=== PATIENT | male | born 1975 | race Two or more races ===

== ENCOUNTER 2016-03-02 21:58 | Emergency (ER) | payer MEDICAID ==
[2016-03-02 22:23] VITALS: BP 121/79; PULSE 88; RESP 18; TEMP 99.1; O2SAT 96
--- NOTE | 2016-03-02 23:14 | EDPHY ---
H & P Stated Complaint: RIGHT THIGH SKIN INFECTION, THINKS A BUG BITE HPI/ROS: HPI CHIEF COMPLAINT: Right thigh abscess HISTORY OF PRESENT ILLNESS: This patient very pleasant 40-year-old male denies any significant medical history or surgical history except for previously recurrent right leg abscess. He wants was treated with Keflex however developed a severe allergic reaction Keflex. He thinks he does okay with Bactrim. He presents emergency room with 2-3 days of a lesion to the right lateral thigh that appears to be a MRSA infection or abscess. He does tell me that he has been pushing on it and draining very minimal pus and some blood from it. Denies fever, denies pain up and down his leg only has localized pain to the abscess lesion. Of note he also states that there was some white stuff on the back of his throat and on the side of his cheek and he had a previous thrush infection he thinks he has recurrent thrush infection. Denies fever, denies history of HIV. He tells me this is his 3rd or 4th leg abscess. Of note I did ultrasound at bedside and there is no fluid collection underlying the skin cellulitis. 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 Exam Constitutional triage nursing summary reviewed, vital signs reviewed, awake/ alert. Eyes normal conjunctivae and sclera, EOMI, PERRLA. HENT posterior pharynx shows thrush in the back of the right tonsillar region and right cheek, otherwise no signs of abscess. normal inspection, atraumatic, moist mucus membranes, no epistaxis, neck supple/ no meningismus, no raccoon eyes. Respiratory clear to auscultation bilaterally, normal breath sounds, no respiratory distress, no wheezing. Cardiovascular rate normal, regular rhythm, no murmur, no edema, distal pulses normal. Gastrointestinal soft, non-tender, no rebound, no guarding, normal bowel sounds, no distension, no pulsatile mass. Genitourinary no CVA tenderness. Musculoskeletal no midline vertebral tenderness, full range of motion, no calf swelling, no tenderness of extremities, no meningismus, good pulses, neurovascularly intact. Skin RLE: Right lateral thigh there is a 2 cm x 3 cm abscess with a head on it. It is indurated there is no fluctuance. No palpable cord, no streaking cellulitis up or down the leg, no crepitus, no evidence of gas. Neurologic awake, alert and oriented x 3, AAOx3, moves all 4 extremities equally, motor intact, sensory intact, CN II-XII intact, normal cerebellar, normal vision, normal speech. Psychiatric normal mood/affect. Heme/Lymph/Immune no lymphadenopathy. Differential Diagnosis:Includes but is not limited to in a particular order, MRSA infection, cellulitis, thrush Medical Decision Making: This patient be started on Bactrim 1st dose given here in the emergency room the ultrasound did not reveal any significant fluid collection that needs to be drained. I do recommend that he continues to do warm compresses up to 5 times today warm soaks, also understands to return to the emergency room if this lesion gets bigger I do recommend he does not pressed on a squeeze on as he can see the infection deeper. He understands return emergency room if he has worsening swelling, redness, drainage, pain or fever or questions or concerns about his abscess. He does understand that it may get bigger and may need to be drained. Prescription given for Bactrim A prescription given for nystatin swish and swallow Source: Patient - Personal History Current Tetanus/Diphtheria Vaccine: Yes Tetanus Vaccine Date: 2011 - Medical/Surgical History Hx Asthma: No Hx Chronic Respiratory Disease: No Hx Diabetes: No Hx Cardiac Disease: No Hx Renal Disease: No Hx Cirrhosis: No Hx Alcoholism: No Hx HIV/AIDS: No Hx Splenectomy or Spleen Trauma: No Other PMH: DENIES - Social History Smoking Status: Current every day smoker Constitutional: Initial Vital Signs Temperature (C) 37.3 C 03/02/16 22:19 Heart Rate 88 03/02/16 22:19 Respiratory Rate 18 03/02/16 22:19 Blood Pressure 121/79 H 03/02/16 22:19 O2 Sat (%) 96 03/02/16 22:19 O2 Delivery Mode Room Air Allergies/Adverse Reactions: cephalexin monohydrate [From Keflex] Allergy (Verified 03/02/16 22:18) Home Medications: Medication Instructions Recorded Nystatin 100,000 unit PO BID #0 oral.susp 03/02/16 Sulfamethox/Tmp 800/160 mg 1 tab PO BID@1000,2200 #14 tab 03/02/16 [Bactrim Ds] Departure - Departure Disposition: Home, Routine, Self-Care Clinical Impression: Abscess, Candidiasis of mouth Condition: Good Instructions: Abscess (ED), Oral Candidiasis (ED) Additional Instructions: 1. Please take your antibiotic as prescribed. 2. Return to the emergency room if develops any worsening pain, swelling, redness, drainage or questions concerns about her abscess. 3. Please use warm compresses over her abscess. Please use warm compresses up to 5 times per day. If this lesion gets bigger more tender more redness please return to the urine may need to be drained. Referrals: NONE *PRIMARY CARE P,. [Primary Care Provider] - As per Instructions Prescriptions: Sulfamethox/Tmp 800/160 mg [Bactrim Ds] 1 tab PO BID@1000,2200 #14 tab Nystatin 100,000 unit PO BID #0 oral.susp
[2016-03-02] MEDS ORDERED: SULFAMETHOX/TMP 800/160 MG 1 TAB PO ONE (23:22)
[2016-03-02] MEDS ORDERED: SULFAMET/TMP DS PREPACK#2 BTL TAKEHOME ONE (23:22)
[2016-03-02] MEDS ORDERED: IBUPROFEN 600 MG TAB PO ONE (23:59)
[2016-03-03] MEDS ORDERED: IBUPROFEN 600 MG TAB PO ONE (00:04)
== END 2016-03-03 00:12 | disposition home or self-care (01) ==
DX: L02.415 Cutaneous abscess of right lower limb (principal); B37.0 Candidal stomatitis; F17.200 Nicotine dependence, unspecified, uncomplicated

== ENCOUNTER 2016-12-31 20:55 | Observation (INO) | payer MEDICAID, OTHER ==
--- NOTE | 2016-12-31 21:44 | EDPHY ---
H & P Stated Complaint: nausea vomiting hiv + HPI/ROS: HPI CHIEF COMPLAINT: Nausea vomiting, recently diagnosed with HIV untreated HISTORY OF PRESENT ILLNESS: This patient 41-year-old male, presents emergency room with nausea vomiting times 48 hours. Nonbloody. States he was recently diagnosed with HIV last week. He is not currently getting any treatment he is due to follow up with [facility] in early January. Denies having any significant medical history does not take any daily medications. Does state that sometimes he takes lorazepam for anxiety. Otherwise he states he is healthy. Patient presents emergency room stating that for 2 days he has had nausea vomiting. Denies diarrhea. Denies abdominal pain. Additionally reports over the past few months he has had a great weight loss. At 1 point he did have thrush that is treated. Additionally he reports intermittent chills over the past few months. Denies chest pain shortness of breath. Does endorse cough. Nonproductive. No hemoptysis. Past Medical History: HIV untreated Past Surgical History: No surgical history Social History: Denies daily use of drugs alcohol tobacco. Family History: Noncontributory ROS REVIEW OF SYSTEMS: A comprehensive 10 point review of systems is otherwise negative aside from elements mentioned in the history of present illness. Exam Constitutional thin appearing, however nontoxic, triage nursing summary reviewed, vital signs reviewed, awake/alert. Eyes normal conjunctivae and sclera, EOMI, PERRLA. HENT oropharynx is normal. No thrush. normal inspection, atraumatic, moist mucus membranes, no epistaxis, neck supple/ no meningismus, no raccoon eyes. Respiratory clear to auscultation bilaterally, normal breath sounds, no respiratory distress, no wheezing. Cardiovascular rate normal, regular rhythm, no murmur, no edema, distal pulses normal. Gastrointestinal soft, non-tender, no rebound, no guarding, normal bowel sounds, no distension, no pulsatile mass. Genitourinary no CVA tenderness. Musculoskeletal no midline vertebral tenderness, full range of motion, no calf swelling, no tenderness of extremities, no meningismus, good pulses, neurovascularly intact. Skin I do not see any petechiae, purpura or [place], pink, warm, & dry, no rash , skin atraumatic. Neurologic awake, alert and oriented x 3, AAOx3, moves all 4 extremities equally, motor intact, sensory intact, CN II-XII intact, normal cerebellar, normal vision, normal speech. Psychiatric normal mood/affect. Heme/Lymph/Immune no lymphadenopathy. Differential Diagnosis: Includes but is not limited to in a particular order dehydration, electrolyte disturbance, esophagitis, gastritis, peptic ulcer disease, HIV, AIDS, pneumonia, AIDS defining illness, infection, bacteremia, UTI Medical Decision Making: Plan for this patient unclear exactly what is causing his 48 hours of nausea vomiting in the setting of an immunocompromised patient will place IV, IV fluid bolus, Zofran for nausea, check blood work, UA, EKG, chest x-ray two view, blood cultures and re-evaluate. He does not appear ill. Vital signs are stable. Re-evaluation: EKG interpretation by me on record in [employer] system. Impression time of EKG 2205. This is sinus rhythm rate of 80. No acute ischemic changes. 2356: I did re-evaluate this patient this time resting comfortably no acute distress. He is not vomiting. He was able to p.o. challenge well. His abdomen is soft nontender. His blood work, chest x-ray been reviewed. His hemoglobin is noted to be 8.8. I did check a stool specimen there is no blood it is occult negative. He does have a follow-up appoint with [facility] to be started on HIV medication having HIV evaluation I do recommend he continues with this appointment in January. I will allow him to go home with Zofran and Zantac. He understands return emergency room if he develops any worsening symptoms questions or concerns includes vomiting, fever, not feeling well. He is agreeable this plan. Source: Patient - Personal History Current Tetanus/Diphtheria Vaccine: Yes Current Tetanus Diphtheria and Acellular Pertussis (TDAP): Yes Tetanus Vaccine Date: 2011 - Medical/Surgical History Hx Asthma: No Hx Chronic Respiratory Disease: No Hx Diabetes: No Hx Cardiac Disease: No Hx Renal Disease: No Hx Cirrhosis: No Hx Alcoholism: No Hx HIV/AIDS: No Hx Splenectomy or Spleen Trauma: No Other PMH: DENIES. hiv + - Social History Smoking Status: Former smoker Constitutional: Initial Vital Signs Temperature (C) 36.6 C 12/31/16 21:15 Heart Rate 97 12/31/16 21:15 Respiratory Rate 18 12/31/16 21:15 Blood Pressure 106/61 12/31/16 21:15 O2 Sat (%) 97 12/31/16 21:15 O2 Delivery Mode Room Air Allergies/Adverse Reactions: cephalexin monohydrate [From Keflex] Allergy (Verified 03/02/16 22:18) Sulfa (Sulfonamide Antibiotics) Allergy (Verified 12/31/16 21:15) Home Medications: Medication Instructions Recorded Ondansetron HCl [Zofran] 4 mg PO Q4-6PRN PRN #10 tablet 12/31/16 Ranitidine HCl [Zantac] 150 mg PO DAILY #30 tablet 12/31/16 Medical Decision Making - Diagnostics Imaging Results: Imaging Impressions Chest X-Ray 12/31/16 21:55 Impression: Normal chest. - Data Points Laboratory Results: Laboratory Results 12/31/16 21:36 12/31/16 21:36 12/31/16 12/31/16 12/31/16 23:10 22:10 21:36 WBC RBC Hgb Hct MCV MCH MCHC RDW Plt Count MPV Neut % (Auto) Lymph % (Auto) [place] % (Auto) Eos % (Auto) Baso % (Auto) Nucleat RBC Rel Count Absolute Neuts (auto) Absolute Lymphs (auto) Absolute Monos (auto) Absolute Eos (auto) Absolute Basos (auto) Absolute Nucleated RBC Immature Gran % Seg Neutrophils % Band Neutrophils % Lymphocytes % Monocytes % Eosinophils % Metamyelocytes % Immature Gran # Absolute Seg Neuts Absolute Band Neuts Absolute Lymphocytes Absolute Monocytes Absolute Eosinophils Absolute Metamyelocyte Platelet Estimate Hypochromasia Tear Drop Cells Elliptocytes PT INR APTT VBG Lactic Acid 1.0 mmol/L mmol/L (0.7-2.1) Sodium 137 mEq/L mEq/L (134-144) Potassium 3.7 mEq/L mEq/L (3.5-5.2) Chloride 100 mEq/L mEq/L (97-110) Carbon Dioxide 26 mEq/l mEq/l (22-31) Anion Gap 11 mEq/L mEq/L (8-16) BUN 11 mg/dL mg/dL (7-23) Creatinine 0.7 mg/dL mg/dL (0.7-1.3) Estimated GFR > 60 Glucose 95 mg/dL mg/dL (70-100) Calcium 8.5 mg/dL mg/dL (8.5-10.4) Total Bilirubin 0.3 mg/dL mg/dL (0.1-1.4) Conjugated Bilirubin 0.1 mg/dL mg/dL (0.0-0.5) Unconjugated Bilirubin 0.2 mg/dL mg/dL (0.0-1.1) AST 26 IU/L IU/L (17-59) ALT 23 IU/L IU/L (21-72) Alkaline Phosphatase 65 IU/L IU/L (38-126) Troponin I < 0.012 ng/mL ng/mL (0.000-0.034) Total Protein 6.9 g/dL g/dL (6.3-8.2) Albumin 3.3 g/dL L g/dL (3.5-5.0) Lipase 224 IU/L IU/L (23-300) Stool Occult Bld Scrn NEGATIVE (NEGATIVE) 12/31/16 12/31/16 21:36 21:36 WBC 4.01 10^3/uL 10^3/uL (3.80-9.50) RBC 3.09 10^6/uL L 10^6/uL (4.40-6.38) Hgb 8.8 g/dL L g/dL (13.7-17.5) Hct 26.1 % L % (40.0-51.0) MCV 84.5 fL fL (81.5-99.8) MCH 28.5 pg pg (27.9-34.1) MCHC 33.7 g/dL g/dL (32.4-36.7) RDW 14.5 % % (11.5-15.2) Plt Count 270 10^3/uL 10^3/uL (150-400) MPV 8.6 fL L fL (8.7-11.7) Neut % (Auto) Not Reported Lymph % (Auto) Not Reported [place] % (Auto) Not Reported Eos % (Auto) Not Reported Baso % (Auto) Not Reported Nucleat RBC Rel Count 0.0 % % (0.0-0.2) Absolute Neuts (auto) Not Reported Absolute Lymphs (auto) Not Reported Absolute Monos (auto) Not Reported Absolute Eos (auto) Not Reported Absolute Basos (auto) Not Reported Absolute Nucleated RBC 0.00 10^3/uL 10^3/uL (0-0.01) Immature Gran % Not Reported Seg Neutrophils % 79 % % Band Neutrophils % 14 % % Lymphocytes % 2 % % Monocytes % 2 % % Eosinophils % 2 % % Metamyelocytes % 1 % % Immature Gran # Not Reported Absolute Seg Neuts 3.17 10^/uL 10^/uL (1.70-6.50) Absolute Band Neuts 0.56 10^3/uL 10^3/uL (0.00-0.70) Absolute Lymphocytes 0.08 10^3/uL L 10^3/uL (1.00-3.00) Absolute Monocytes 0.08 10^3/uL L 10^3/uL (0.30-0.80) Absolute Eosinophils 0.08 10^3/uL 10^3/uL (0.03-0.40) Absolute Metamyelocyte 0.04 10^3/mL H 10^3/mL (0.00-0.00) Platelet Estimate ADEQUATE (ADEQ) Hypochromasia 1+ H Tear Drop Cells 1+ H Elliptocytes 1+ H PT 13.5 SEC SEC (12.0-15.0) INR 1.04 (0.83-1.16) APTT 34.9 SEC SEC (23.0-38.0) VBG Lactic Acid Sodium Potassium Chloride Carbon Dioxide Anion Gap BUN Creatinine Estimated GFR Glucose Calcium Total Bilirubin Conjugated Bilirubin Unconjugated Bilirubin AST ALT Alkaline Phosphatase Troponin I Total Protein Albumin Lipase Stool Occult Bld Scrn Medications Given: Discontinued Medications Sodium Chloride (Ns) 1,000 mls @ 0 mls/hr IV EDNOW ONE; Wide Open PRN Reason: Protocol Stop: 12/31/16 21:56 Last Admin: 12/31/16 22:20 Dose: 1,000 mls Ondansetron HCl (Zofran) 4 mg IVP EDNOW ONE Stop: 12/31/16 21:56 Last Admin: 12/31/16 22:20 Dose: 4 mg Departure - Departure Disposition: Home, Routine, Self-Care Clinical Impression: Anemia Qualifiers: Anemia type: unspecified type Qualified Code(s): D64.9 - Anemia, unspecified Vomiting Qualifiers: Vomiting type: unspecified Vomiting Intractability: non-intractable Nausea presence: with nausea Qualified Code(s): R11.2 - Nausea with vomiting, unspecified Condition: Good Instructions: Acute Nausea and Vomiting (ED) Additional Instructions: 1. Return emergency room if develops worsening symptoms questions or concerns includes abdominal pain, vomiting or high fever. 2. [facility]. 3. Zantac and Zofran as needed for nausea. Referrals: Patient,NotPresent [Primary Care Provider] - As per Instructions [facility] (ED,. [Edm Groups for Call Sched] - As per Instructions Prescriptions: Ondansetron HCl [Zofran] 4 mg PO Q4-6PRN PRN #10 tablet PRN Reason: Nausea/Vomiting, Use 1st Ranitidine HCl [Zantac] 150 mg PO DAILY #30 tablet
[2016-12-31] MEDS ORDERED: ONDANSETRON 4 MG/2 ML VIAL IVP ONE (21:55)
[2016-12-31] MEDS ORDERED: NS 1,000 ML IV ONE (21:55)
--- NOTE | 2016-12-31 22:08 | CPEKG ---
Heart Rate: 80 RR Interval: 750 P-R Interval: 160 QRSD Interval: 80 QT Interval: 388 QTC Interval: 448 P [place]: 51 QRS [place]: 71 T Wave [place]: 39 EKG Severity - NORMAL ECG - EKG Impression: SINUS RHYTHM Electronically Signed By: Pa Belle 01-Jan-2017 07:09:57
[2016-12-31 22:30] LABS: ADD DIFF? YES; ADD MORPH? NO; ADD SCAN? NO; ATYPICAL LYMPHOCYTE FLAG 0 (0-99); FRAGMENT RBC FLAG 0 (0-99); HEMATOCRIT 26.1 % (40.0-51.0); HEMOGLOBIN 8.8 g/dL (13.7-17.5); LEFT SHIFT FLG 70 (0-99); LIPEMIA HEMOLYSIS FLAG 80 (0-99); MEAN CELL HEMOGLOBIN 28.5 pg (27.9-34.1); MEAN CELL HEMOGLOBIN CONCENTR. 33.7 g/dL (32.4-36.7); MEAN CELL VOLUME 84.5 fL (81.5-99.8); MEAN PLATELET VOLUME 8.6 fL (8.7-11.7); PLATELET CLUMPS FLAG 10 (0-99); PLATELET COUNT 270 10^3/uL (150-400); RED BLOOD CELL COUNT 3.09 10^6/uL (4.40-6.38); RED CELL DISTRIBUTION WIDTH 14.5 % (11.5-15.2)
[2016-12-31 22:36] LABS: INR 1.04 (0.83-1.16); PROTIME(PATIENT) 13.5 SEC (12.0-15.0)
[2016-12-31 22:37] LABS: APTT 34.9 SEC (23.0-38.0)
[2016-12-31 22:40] LABS: ALANINE AMINOTRANSFERASE 23 IU/L (21-72); ALBUMIN 3.3 g/dL (3.5-5.0); ALKALINE PHOSPHATASE 65 IU/L (38-126); ANION GAP 11 mEq/L (8-16); ASPARTATE AMINOTRANSFERASE 26 IU/L (17-59); BILIRUBIN,TOTAL 0.3 mg/dL (0.1-1.4); BILIRUBIN-CONJUGATED 0.1 mg/dL (0.0-0.5); BILIRUBIN-UNCONJUGATED 0.2 mg/dL (0.0-1.1); CALCIUM 8.5 mg/dL (8.5-10.4); CARBON DIOXIDE 26 mEq/l (22-31); CHLORIDE 100 mEq/L (97-110); CREATININE 0.7 mg/dL (0.7-1.3); GLOMERULAR FILTRATION RATE > 60; GLUCOSE 95 mg/dL (70-100); POTASSIUM 3.7 mEq/L (3.5-5.2); SODIUM 137 mEq/L (134-144); TOTAL PROTEIN 6.9 g/dL (6.3-8.2)
[2016-12-31 22:50] LABS: TROPONIN I < 0.012 ng/mL (0.000-0.034)
[2016-12-31 23:02] LABS: HYPOCHROMIA 1+; PLATELET ESTIMATE ADEQUATE (ADEQ)
[2016-12-31 23:04] LABS: ELLIPTOCYTES 1+
[2016-12-31] MEDS ORDERED: ONDANSETRON 4MG PREPACK#2 BTL TAKEHOME ONE (23:04)
[2017-01-01 00:11] LABS: COLOR YELLOW; LEUKOCYTE ESTERASE,URINE NEGATIVE (NEGATIVE); NITRITE,URINE NEGATIVE (NEGATIVE)
[2017-01-01] MEDS ORDERED: ONDANSETRON 4 MG/2 ML VIAL IVP PRN (01:41)
[2017-01-01] MEDS ORDERED: diphenhydrAMINE 25 MG CAP PO PRN (01:41)
[2017-01-01] MEDS: LORazepam 0.5 MG TAB PO PRN ×2 (02:53→22:04)
[2017-01-01 05:57] LABS: ADD DIFF? YES; ADD MORPH? NO; ADD SCAN? NO; ATYPICAL LYMPHOCYTE FLAG 0 (0-99); FRAGMENT RBC FLAG 0 (0-99); HEMATOCRIT 23.9 % (40.0-51.0); HEMOGLOBIN 7.7 g/dL (13.7-17.5); LEFT SHIFT FLG 70 (0-99); LIPEMIA HEMOLYSIS FLAG 80 (0-99); MEAN CELL HEMOGLOBIN 27.8 pg (27.9-34.1); MEAN CELL HEMOGLOBIN CONCENTR. 32.2 g/dL (32.4-36.7); MEAN CELL VOLUME 86.3 fL (81.5-99.8); MEAN PLATELET VOLUME 8.5 fL (8.7-11.7); PLATELET CLUMPS FLAG 10 (0-99); PLATELET COUNT 229 10^3/uL (150-400); RED BLOOD CELL COUNT 2.77 10^6/uL (4.40-6.38); RED CELL DISTRIBUTION WIDTH 14.4 % (11.5-15.2)
[2017-01-01 06:19] LABS: ANION GAP 9 mEq/L (8-16); CARBON DIOXIDE 24 mEq/l (22-31); CHLORIDE 104 mEq/L (97-110); CREATININE 0.7 mg/dL (0.7-1.3); GLOMERULAR FILTRATION RATE > 60; GLUCOSE 99 mg/dL (70-100); MAGNESIUM 2.1 mg/dL (1.6-2.3); POTASSIUM 4.3 mEq/L (3.5-5.2); SODIUM 137 mEq/L (134-144)
[2017-01-01 06:28] LABS: ELLIPTOCYTES 1+; HYPOCHROMIA 1+; PLATELET ESTIMATE ADEQUATE (ADEQ); TOXIC GRANULATION PRESENT
--- NOTE | 2017-01-01 10:46 | GHP ---
[f rep st] HISTORY AND PHYSICAL DATE OF ADMISSION: 01/01/2017 HISTORY OF PRESENT ILLNESS: This is a very pleasant 41-year-old gentleman with past medical history significant for recently diagnosed HIV, who is otherwise healthy; who presents to the emergency depar tment today with a chief complaint of nausea and vomiting for the past 2 days. Patient states that delicia walker has not had any diarrhea or abdominal pain. He did have 1 episode which resolved a few days ago. He reports a roommate with similar symptoms. He does report some subjective fevers, chills with mitch rs, usually in the evenings, as well as sweats. Patient has had significantly decreasing appetite an d weight loss over the last several months. Patient also reports a chronic cough for the past 2 jennifer hs, which has slowly been improving, which he attributed to a smoker's cough. He has not had any pro duction of sputum with this cough, and patient did quit smoking only 1 month ago. REVIEW OF SYSTEMS: CONSTITUTIONAL: Patient with subjective fevers, chills, and rigors, as well as s weats. SKIN: Patient without any acute rashes or sores. Does report some chronic dry skin. ENT: Patient denies any sore throat or rhinorrhea. EYES: Patient does report right eye is blurry for the past several weeks. Otherwise, no other complaints. No ocular pain. CV: Patient has no chest miguelina n, palpitations. RESPIRATORY: Patient denies any shortness of breath. He does have cough as noted above. Patient also notes that he experiences posttussive emesis in the last several days with this nausea and vomiting. GI: See HPI. Patient denies any melena or hematochezia. He has not had any h ematemesis with his episodes of nausea and vomiting, and he denies any abdominal pain. : No dysur ia or hematuria. MUSCULOSKELETAL: Patient does report cramps in his legs occasionally, but no joint pain. NEURO: Patient is complaining of a headache, occasionally some numbness and tingling in his feet, knees, and hands, but otherwise none currently. PSYCH: Patient does report feeling a little b it anxious with his recent diagnosis, but has no formal diagnosis of this long-term, and he denies an y depression. ALLERGIES: Keflex and sulfa. MEDICATIONS: Ativan p.r.n. PAST MEDICAL HISTORY: Significant for recently diagnosed HIV and a previous history of thrush. PAST SURGICAL HISTORY: Significant for appendectomy. FAMILY HISTORY: Mother with hypertension. 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 He reports t hat he never has any unprotected sex and does not have any known exposures through sexual contact. H e is heterosexual. He denies any use of IV drugs. Patient quit smoking in early November of this year. He had a previous history of smoking half a pack per day intermittently over the last several years. He denies any illicit drug use. CODE STATUS: Patient's ex-, and he desires to be a full code. LABORATORY STUDIES: 1. On arrival, WBC 4.0, H and H 8.8 and 26.2, MCV of 84.5, platelet count is 270, no bands. 2. Sodium is 137, potassium 3.7, chloride 100, CO2 of 26, anion gap 11, BUN 11, creatinine 0.7, GFR greater than 40, glucose is 95, calcium 8.5, magnesium pending, total bili 0.3, ALT is 23, AST is 26, alk phos 65. Troponin is negative. Total protein 6.9. Albumin is 3.3. Lipase 224. 3. PT is 13.5, INR is 1.04, PTT is 34.5. Lactic acid is 1.0. 4. UA with specific gravity 1.014, pH of 6.0, and otherwise negative. 5. Stool occult blood is negative. 6. CD4 count pending. 7. Chest x-ray: Image report reviewed, negative for any acute findings, is clear. 8. EKG, reviewed myself, showing normal sinus rhythm in the 80s. There are no acute ST changes. QT c is 448. ASSESSMENT AND PLAN: A very pleasant 41-year-old gentleman with recent diagnosis of human immunodefi ciency virus, who presents with 2 days' history of nausea and vomiting. 1. Intractable nausea and vomiting. Symptoms finally have improved, status post several doses of Zo harry in the emergency department and intravenous fluids. Etiology is likely a viral gastroenteritis versus gastritis. Patient without any acute respiratory complaints at this time, and chest x-ray is clear. Supportive care with IV fluids and antiemetics at this time. 2. Bandemia. Patient without any leukocytosis, and CD4 count is pending with patient's history of r ecent human immunodeficiency virus, although this is not likely to be back for some time. Patient do es have a bandemia, possibly related to patient's acute illness with his nausea and vomiting. Will p viktor to monitor. Patient is currently afebrile. 3. Human immunodeficiency virus. Check CD4 count. Patient is scheduled to have followup with [facility] for management of his human immunodeficiency virus on December 19. 4. Cough. Patient reports his primary care provider completed skin testing and it was within normal for any evidence of allergies. 5. Anemia. Baseline hemoglobin and hematocrit are unknown at this time. This could represent anemi a of chronic disease with history of patient's human immunodeficiency virus. Denies any melena, wilda tochezia, or upper gastrointestinal bleeding. Will need to monitor closely. 6. Hypoalbuminemia. Likely secondary to patient's acute illness. 7. Fluid, electrolyte and nutrition. Patient will receive intravenous fluid hydration. We will try to advance his diet as tolerated given his intractable nausea and vomiting. Electrolytes will be re placed as needed, and diet will be advanced also as tolerated. 8. Prophylaxis. Sequential compression devices. Holding anticoagulation in the setting of anemia a s it is of uncertain etiology. Patient did have a guaiac that was negative. 9. Code status is full. DISPOSITION: Patient will be admitted to observation status on the medical floor. Blood cultures we re obtained initially when patient presented, will await preliminary findings. Low suspicion that th is patient has a bacteremia, and this does appear to be more viral in nature given multiple sick cont acts at home. /[id number]/MODL
--- NOTE | 2017-01-01 13:02 | HOSPPROG ---
Hospitalist Progress Note Assessment/Plan: DIAGNOSES: # Nausea vomiting, suspect gastroenteritis possibly viral, improving # 3 months of cough night sweats weight loss and headache, in the setting of HIV suspicion for TB or MAC; normal chest x-ray # HIV positive per patient's report though the test was not done in our system so we do not have the result to review # severe normocytic anemia, suspect a somehow related to his HIV disease or potentially to an opportunistic disease related to his HIV I reviewed the patient's situation in detail with Dr. denny the route. I have suspicion for possible AFB infection and Dr. Blair agrees that we should investigate that and start with CT scan of chest and AFB blood cultures. Will determine further assessments, isolation, and other issues once we see the CT scan today. For the moment I have asked the nurse to turn on the negative pressure mechanism in his room and put on isolation for possible AFB. We have also ordered T cell counts and does probably will not be back for a day or 2 but those will be helpful in terms of determining how to proceed. This also gives a chance to speed up his process of being assessed for HIV as his appointment at [facility] is off always for his initial assessment. In addition with his headache if he does have significantly low T cell counts would consider the utility of lumbar puncture to assess for chronic meningitis. It would also potentially helpful to check for CMV or other possible causes of his anemia at this point and I will order some testing for that purpose and will want to recheck his hemoglobin as it is dropping here and is quite low. PLANS: Dr. Quezada agrees to see patient for me CT scan of chest to look for infiltrates or adenopathy or other sign of disease AFB blood cultures Negative pressure isolation at for the time being Await T cell counts Continue IV fluids and p.r.n. antiemetic A total of 50 minutes of bedside care and care coordination is spent during my visit with the patient today in addition to the time spent earlier today by Dr. Glass. SUBJECTIVE: Patient is having less nausea now and has been able to eat some small amounts of food Still feels very tired No abdominal Pain Again he endorses the story of 2 and half to 3 months of very persistent cough, night sweats and chills, weight loss, mild headache OBJECTIVE Vitals reviewed: Stable without fever so far Exam: alert oriented skin warm dry color ok resps not labored lungs clear BSs heart regular abd soft nondistended nontender, bowel sounds present limbs warm, no edema iv site ok Objective: Vital Signs Temp Pulse Resp BP Pulse Ox 36.9 C 96 16 111/66 95 01/01/17 11:31 01/01/17 11:31 01/01/17 11:31 01/01/17 11:31 01/01/17 11:31 Laboratory Results 01/01/17 05:31 01/01/17 05:31 12/31/16 01/01/17 01/02/17 06:59 06:59 06:59 Intake Total 1650 Balance 1650 PT 13.5 SEC (12.0-15.0) 12/31/16 21:36 INR 1.04 (0.83-1.16) 12/31/16 21:36 - Time Spent With Patient Time Spent with Patient: greater than 35 minutes Time Spent with Patient: Greater than 35 minutes spent on this patients care, greater than 50% of time spent counseling, educating, and coordinating care regarding the above mentioned plan. ICD10 Worksheet Patient Problems: Problems Problem Status Onset Anemia Acute Vomiting Acute
[2017-01-01] MEDS ORDERED: IOPAMIDOL (ISOVUE-300) 100 ML BTL ONE (13:43)
--- NOTE | 2017-01-01 13:54 | ASMTCMCOM ---
CM Note CM Note Notes: Pt admitted for N/V probably viral per MD note. Tests have been ordered to look into cause of pt's 3-month cough. Pt's DC needs are unclear at this time. C/M to follow. Date Signed: 01/01/2017 01:53 PM Electronically Signed By:Ruth Pennington LCSW
[2017-01-01 14:36] LABS: % SATURATION 7 % (20-55); TOTAL IRON BINDING CAPACITY 248 ug/dL (260-490)
[2017-01-01] MEDS: ACETAMINOPHEN 325 MG TAB PO PRN (15:44)
--- NOTE | 2017-01-01 19:44 | GCON ---
[f rep st] CONSULTATION INFECTIOUS DISEASE CONSULTATION. DATE OF CONSULTATION: 01/01/[address] Mingo Kwon. REASON FOR CONSULTATION: Cough and new diagnosis of HIV. Evaluate for TB. CHIEF COMPLAINT: Nausea and vomiting. HISTORY OF PRESENTING ILLNESS: This is a 41-year-old male, who was recently diagnosed with HIV on December 16, 2016. He was offered an appointment at [place] last week, but was not able to make it. He came in yesterday with complaints of nausea and vomiting for the past 2 days, and not able to keep down any food. He denies any abdominal pain or diarrhea. He states that he is feeling much better. He was hydrated yesterday. He was feeling very hungry today and has been able to eat his meals today without difficulty. He has had some fevers, chills, and night sweats over the past several months and has lost about 30-40 pounds over the past year or so. He states that he has also had a chronic cough, without shortness of breath or sputum production. He denies any coughing up of blood. In discussion with Dr. Kwon earlier today, I recommended a CT of the chest to further evaluate, which showed no evidence of pneumonia, but extensive lymphadenopathy including the mediastinum and right hilar region, and extensive upper abdominal lymphadenopathy as well. His CD4 status is uncertain at this point, so that has been ordered. Infectious Disease is now consulted for further evaluation. REVIEW OF SYSTEMS: GENERAL: Mild headache over several months, without neck stiffness. HEENT: Eyes: He complains of right eye change in vision over the past of couple months as well. He denies sore throat, difficulty swallowing, ear pain, or ear drainage. He did have thrush a couple of weeks ago. He said he was treated with Diflucan, and it has resolved. CARDIOVASCULAR: Denies any chest pain or rapid heart beat. RESPIRATORY: As above. GI: As above. : Denies any dysuria, hematuria, penile discharge, or penile ulcers. BACK: No CVA tenderness or back pain. MUSCULOSKELETAL: Denies any joint pain or muscle aches. SKIN: He has had what he calls dry spots on his arms that his massage therapist gives him a cream for, and it resolves. ENDOCRINE: As above, with weight loss. PAST MEDICAL HISTORY: Significant for previous MRSA skin infections, right thigh abscess, namely in February of 2016, recurrent oral candidiasis and new diagnosis of HIV, status pending. PAST SURGICAL HISTORY: Significant for appendectomy. ALLERGIES: Allergies to Keflex and sulfa. SOCIAL HISTORY: He used to smoke. He quit 1 month ago. He denies alcohol intake. He denies injection drug usage, but has smoked cocaine in the past. He states he was incarcerated a year ago for a domestic violence situation. He states he shared clippers while in [facility], and he continues to share clippers currently. He states heterosexual is his sexual preference. He has a girlfriend right now who has had unprotected sex. She is currently being tested. 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 He has tattoos of his own that he has had since he was a young adult. He lives in a [facility] house right now. FAMILY HISTORY: He thinks his parents are healthy. PHYSICAL EXAMINATION: VITAL SIGNS: Temperature current 36.9, pulse 96, blood pressure 155/76, saturations 96% on room air, respiratory rate 16. GENERAL: He is sitting up in bed, in no acute respiratory distress. Awake, alert, and oriented x3. HEENT: Head is normocephalic, atraumatic. Pupils are equal, round, and react to light. There is no conjunctival injection and no petechiae. Oropharynx is clear. There is no posterior erythema or thrush. No oropharyngeal lesions noted. CARDIOVASCULAR: S1, S2. Regular rate and rhythm. No murmurs appreciated. RESPIRATORY: Clear to auscultate bilaterally. No rhonchi or rales appreciated. ABDOMEN: Positive bowel sounds in all 4 quadrants. Soft and nondistended. He has mild tenderness in the right upper quadrant with palpation. EXTREMITIES: No lower extremity edema. MUSCULOSKELETAL: No obvious joint effusions. SKIN: One hyperpigmented patch on the back and some areas which may be consistent with eczema on his upper extremities bilaterally. LABORATORY DATA: White blood cell count 5.7, hemoglobin 7.7, platelets 229, neutrophil count 66%, bands 25%. Toxic granulations and Dohle bodies noted. Sodium 137, potassium 4.3, chloride 74, bicarb 24, BUN 9, creatinine 0.7. Iron is 18. TIBC 248. Iron saturation 7. Ferritin 492. LFTs are within the normal range. Lipase 224. Albumin i3.3. Urinalysis is unremarkable. Stool occult blood negative. CD4 count and percentage pending. CMV IgA, IgG, and IgM pending. Blood cultures x2 sets are pending. Blood cultures for AFB are pending. Reviewed data from [facility] in detail: results as follows: 12/16/16:- HIV Ag/Ab positive, HIV 1 positive, Hepatitis A IgM negative, Hepatitis B surface Ag and Ab negative, Hepatitis C Ab negative, Chlamydia and Gonorrhea negative, RPR negative. IMAGING RESULTS: Have been reviewed by me and are as stated above. His chest x -ray showed no evidence of pneumonia. His chest CT showed mediastinal and right hilar adenopathy. No axillary or supraclavicular adenopathy. Extensive upper abdominal adenopathy, with possible heterogeneous splenomegaly. Arterially enhancing nodule in the upper liver. There was a small, noncalcified subpleural nodule in the posterior left upper lobe, along with a tiny left lateral costophrenic gutter noncalcified nodule. No pleural effusion. ASSESSMENT: 1. Human immunodeficiency virus, with possible acquired immune deficiency syndrome.-work up in progress 2. Extensive lymphadenopathy, with fevers, night sweats, and anemia concerning for possibly disseminated Mycobacterium avium complex. 3. Anemia. 4. History of recurrent oral candidiasis. PLAN: At this point in time, a basic HIV workup needs to be done, including CD4 count, HIV RNA, etc. I recommended earlier today to have blood cultures done for AFB to evaluate further for possible disseminated MAC. He may also need a CT of the abdomen and pelvis as well to further evaluate. We will order other basic HIV workup, as the patient is anxious to know and anxious to get started on treatment. He will likely need lymph node biopsy. There is no evidence of any pulmonary consolidation. We will discontinue airborne precautions, as there is no evidence of pulmonary TB. He will need Ophtholmology evaluation as well. His care was coordinated with Dr. Kwon and the nurse. His family does not know his diagnosis of HIV at this point. Currently, he has an appointment at the [facility] with Dr. Hartman on January 18. Please see orders for the HIV workup planned. Thank you very much for this opportunity to care for your patient in consultation. /[id number]/MODL MTDD
[2017-01-01] MEDS ORDERED: FAMOTIDINE 20 MG TAB PO SCH (21:00)
[2017-01-02] MEDS: ACETAMINOPHEN 325 MG TAB PO PRN (01:22)
[2017-01-02 05:35] LABS: ADD DIFF? YES; ADD MORPH? NO; ADD SCAN? NO; ATYPICAL LYMPHOCYTE FLAG 0 (0-99); FRAGMENT RBC FLAG 0 (0-99); HEMATOCRIT 26.1 % (40.0-51.0); HEMOGLOBIN 8.5 g/dL (13.7-17.5); LEFT SHIFT FLG 40 (0-99); LIPEMIA HEMOLYSIS FLAG 80 (0-99); MEAN CELL HEMOGLOBIN CONCENTR. 32.6 g/dL (32.4-36.7); MEAN CELL VOLUME 85.9 fL (81.5-99.8); MEAN PLATELET VOLUME 8.5 fL (8.7-11.7); PLATELET CLUMPS FLAG 0 (0-99); PLATELET COUNT 234 10^3/uL (150-400); RED BLOOD CELL COUNT 3.04 10^6/uL (4.40-6.38); RED CELL DISTRIBUTION WIDTH 14.4 % (11.5-15.2)
[2017-01-02 06:16] LABS: VITAMIN D 25-HYDROXY TOTAL 27.4 ng/mL (30.0-100.0)
[2017-01-02 06:17] LABS: PLATELET ESTIMATE ADEQUATE (ADEQ)
[2017-01-02 06:18] LABS: ELLIPTOCYTES 1+; HYPOCHROMIA 1+; TOXIC GRANULATION PRESENT
--- NOTE | 2017-01-02 11:44 | PDDCSUM ---
Discharge Summary Discharge Summary: DISCHARGE DIAGNOSES: # Nausea vomiting, suspect gastroenteritis possibly viral, improving # 3 months of cough night sweats weight loss and headache, in the setting of HIV suspicion for TB or MAC; normal chest x-ray # HIV positive per patient's report though the test was not done in our system so we do not have the result to review # severe normocytic anemia, suspect a somehow related to his HIV disease or potentially to an opportunistic disease related to his HIV CONSULTANTS: Dr.Arathi Blair PROCEDURES: CT scan of chest showing no evidence of pulmonary consolidation, nodules, or other specific abnormality HOSPITAL COURSE SUMMARY: This patient presented to the hospital with nausea and vomiting without significant abdominal pain or fevers and with no evidence of bleeding. He was suspected as having a probable viral or other infectious gastroenteritis and his symptoms did resolve with observation here. He is now eating without any difficulty not taking any nausea medicine. He was given some IV hydration. The patient does have a history of dyspepsia and wishes to take some H2 yadi which is reasonable. In addition the patient mentions that he has a history of a positive HIV test that was recently obtained. He had made an appointment at [facility] but missed that appointment last week. He does admit to having ongoing fever symptoms, cough, weight loss, and mild headache without neurologic symptoms for approximately 2-3 months. No other concerning symptoms are examination findings at this time. CT scan of the chest showed no particular abnormality. He is suspected to either have MAC, CMV, or other opportunistic infection as the cause of all these symptoms. We do not have any information related to his T-cell counts or immune status at this time. I had are the row see the patient with me. We emphasized the importance of careful staging workup for HIV and diagnostic workup for his presenting symptoms. Reviewed the positive benefits for getting on adequate treatment as well as continued follow-up both medically and for other issues at the [facility]. The patient is very much wanting to take care of all this and would like to receive ongoing treatment. He does not appear to be abusing substances at this time. He is well aware of the infectious and contagious nature and the methods of spread of HIV. We did order a panel of different tests related to his symptoms and his HIV so that when he goes in to see folks at [facility] they will hopefully have all those results and make rapid progress and moving forward with treatment. He is not felt to have any pulmonary TB is normal CT chest. PENDING TEST RESULTS: AFB blood cultures CMV antibodies T cell count panel HIV RNA Histoplasma test Hepatitis serologies MEDICATION CHANGES: He will be taking an H2 yadi current and probably somewhat nondrowsy antihistamine for some allergy symptoms he gets at work FOLLOW-UP PLAN: He has an appointment at [facility] on January 18 He will need to come here tomorrow for a blood test that will be a send out and is given a prescription for that. Greater than 35 minutes bedside and care coordination time today
[2017-01-02 14:54] VITALS: BP 106/68; PULSE 102; RESP 18; TEMP 98.4; O2SAT 97
--- NOTE | 2017-01-02 17:01 | ASDISCHSUM ---
Discharge Information Plan Status:Home with No Needs Medically Cleared to Leave:01/01/2017 Discharge Date:01/02/2017 03:51 PM CM D/C Disposition:Home, Routine, Self-Care ADT D/C Disposition:Home, Routine, Self-Care Projected Discharge Date:01/02/2017 01:00 PM Transportation at D/C:Family Discharge Delay Reason: Follow-Up Date:01/02/2017 01:00 PM Discharge Slot: Final Diagnosis:Gastroenteritis possibly viral Placement Information Patient Contact Information Contact Name:LEONELA Relationship:Friend Address: Work Phone: City: [facility] Phone: [facility]/Zip Code: Email: Financial Information Financial Class:Self-Pay Primary Plan Desc:[employer] Primary Plan Number:[id number] Secondary Plan Desc: Secondary Plan Number: Assessment Information [facility] CM Progress Note CM Note CM Note Notes: Pt admitted for N/V probably viral per MD note. Tests have been ordered to look into cause of pt's 3-month cough. Pt's DC needs are unclear at this time. C/M to follow. Date Signed: 01/01/2017 01:53 PM Electronically Signed By:Ruth Pennington LCSW Intervention Information
[2017-01-03 14:57] LABS: %CD3 (T CELLS) 60 % (58-86); TCD4 COMMENT See Comments
[2017-01-04 21:40] LABS: CMV DNA DETECTION AND QUANTIFI 16200 IU/mL (Undetected)
[2017-01-05 10:24] LABS: TOXOPLASMA IGG ANTIBODY Negative (Negative); TOXOPLASMA IGG VALUE <3 IU/mL
[2017-01-05 14:24] LABS: HLA B 5701 INTERPRETATION See Comments; HLA B 5701 RESULT Negative
[2017-01-05 14:36] LABS: INTERPRETATION See Comments; PARVOVIRUS B19 IGG ANTIBODY NEGATIVE (Negative); PARVOVIRUS B19 IGM ANTIBODY NEGATIVE (Negative)
[2017-01-06 06:18] LABS: MISCELLANEOUS TEST See Comments
[2017-01-06 11:21] LABS: TESTOSTERONE TOTAL 333 ng/dL (240-950)
== END 2017-01-02 15:51 | disposition home or self-care (01) ==
LOC: F1N 01-01 00:54
PROVIDERS: ADMIT Family Medicine; ATTEND Family Medicine
DX: R11.2 Nausea with vomiting, unspecified (principal); B20 Human immunodeficiency virus [HIV] disease; D64.9 Anemia, unspecified
CPT/HCPCS: 71020; 71260; 93005; G0378; 82607-90; 84402-90; 86359-90; 86360-90; 86635-90; 86644-90; 86645-90; 86708-90; 86747-90; 86777-90; 87385-90; 87497-90; 87536-90; 96374; J2405; Q9967

== ENCOUNTER 2017-01-13 17:51 | Inpatient (IN) | payer OTHER ==
--- NOTE | 2017-01-13 18:02 | EDPHY ---
H & P Stated Complaint: N/V;recent inpt tx for same c/o;feels dehydrated;has h/a HPI/ROS: CHIEF COMPLAINT: Nausea/vomiting HISTORY OF PRESENT ILLNESS: This patient is a 41 year old male with recent diagnosis of HIV/AIDS ( disseminated mycobacterium, CMV retinitis) arriving at the request of his infectious disease specialist, Dr. Hartman, complaining of fever, nausea, and vomiting. The patient found out 3 weeks ago that he is HIV positive following recurrent thrush infections, abscesses and weight loss. He has a new medication regimen but has been unable to take his medications because of nausea and vomiting. He has vomited all day today, and has vomited over night for the last two days. He complains of a headache and dehydration. He took Azithromycin and Myambutol today with food and was able to sleep briefly, but vomited one hour following. He denies diarrhea, abdominal pain, confusion, dysuria, shortness of breath, cough, or other associated symptoms. REVIEW OF SYSTEMS: A ten point review of systems was performed and is negative with the exception of the items mentioned in the HPI. Past medical history: 1. HIV/AIDS 2. Stomach ulcer Past surgical history: 1. Appendectomy Family history: Noncontributory Social history: Parents and girlfriend at bedside. Has a 6 year old son. Lives at [facility]. 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 Former smoker, quit 3 months ago. No alcohol or illicit drug use. General Appearance: Alert. Thin. Vital signs reviewed. Blood pressure 78/56 , heart rate 128 at triage. Eyes: Pupils equal and round, no conjunctival injection, no discharge. Anicteric. ENT, Mouth: erythematous papules at posterior oropharynx, mild thrush. Mucous membranes are moist, no edema. Neck: No lymphadenopathy, supple. Respiratory: Lungs are clear to auscultation; no wheezes, rales, or rhonchi. Cardiovascular: Tachycardic; no murmur, rub, or gallop. Gastrointestinal: Abdomen is soft and nontender, no masses or organomegaly, bowel sounds normal. Skin: Warm and dry, no rashes on exposed skin, normal color. No cellulitis or abscesses noted. Back: Nontender to palpation over the thoracolumbar spine. No CVAT. Extremities: No lower extremity edema, no calf tenderness or swelling. Neurological: Alert and oriented. Moving all four extremities easily and equally. TRI. EOMI. Tongue midline. Facial expressions symmetric. Psychiatric: Normal affect. - Personal History Current Tetanus Diphtheria and Acellular Pertussis (TDAP): Yes Tetanus Vaccine Date: 2011 - Medical/Surgical History Hx Asthma: No Hx Chronic Respiratory Disease: No Hx Diabetes: No Hx Cardiac Disease: No Hx Renal Disease: No Hx Cirrhosis: No Hx Alcoholism: No Hx HIV/AIDS: Yes Hx Splenectomy or Spleen Trauma: No Other PMH: S/P APPY @ 8YRS OF AGE; HIV+-diagnosed Dec 2016 - Social History Smoking Status: Former smoker Constitutional: Initial Vital Signs Temperature (C) 38.1 C 01/13/17 17:52 Heart Rate 128 H 01/13/17 17:52 Respiratory Rate 18 01/13/17 17:52 Blood Pressure 78/56 L 01/13/17 17:52 O2 Sat (%) 92 01/13/17 17:52 O2 Delivery Mode Room Air Allergies/Adverse Reactions: cephalexin monohydrate [From Keflex] Allergy (Verified 01/13/17 17:52) Other-Enter Comments Sulfa (Sulfonamide Antibiotics) Allergy (Verified 01/13/17 17:52) Other-Enter Comments Home Medications: Medication Instructions Recorded Acetaminophen [Tylenol 325mg (*)] 650 mg PO Q6 PRN 01/13/17 Atovaquone 1,500 mg PO DAILY 01/13/17 Azithromycin [Zithromax] 600 mg PO DAILY 01/13/17 Difluprednate [Durezol] 1 drop EACHEYE BID 01/13/17 Dronabinol [Marinol] 5 mg PO DAILY 01/13/17 Ethambutol HCl [Myambutol 400 MG 1,200 mg PO DAILY 01/13/17 (*)] Fluconazole [Diflucan (*)] 100 mg PO DAILY 01/13/17 Fluconazole [Diflucan (*)] 200 mg PO DAILY 01/13/17 Omeprazole 40 mg PO DAILY 01/13/17 valGANciclovir [ValCYTE] 900 mg PO BID 01/13/17 Medical Decision Making ED Course/Re-evaluation: 41 year old male with recent HIV/aids diagnosis presents with fever and persistent nausea and vomiting. Exam reveals oropharyngeal erythematous papules , mild thrush. I spoke with Dr. Hartman, infectious disease specialist, prior to this patient's arrival. 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 He is being treated for disseminated mycobacterium and Cytomegalovirus retinitis. Plan for admission, treatment with IVF and antiemetics. The patient is febrile, tachycardic, and hypotensive, triggering sepsis evaluation. IV established. Plan for labs including CBC, BMP, UA, sepsis protocol. Plan to administer 2L IV NS, 4mg IV Zofran. Plan to administer 650mg acetaminophen PO or MI as tolerated. Past medical records reviewed. The patient was admitted 12/31/16 for similar symptoms including nausea and vomiting. 18:35 Normal lactic acid. Patient would like to try PO acetaminophen. Plan to administer 1000 mg PO acetaminophen. Plan to administer 80mg IV Protonix due to the patient's history of ulcer. Systolic blood pressure now in the high 90s with heart rate in the 90s. This is after 1.5 L of normal saline. I have not found evidence of another infection. It does not meet severe sepsis criteria. 19:05 Spoke with hospitalist service. Dr. Cecy Lin accepts admission. Differential Diagnosis: Fever in adults including but not limited to pneumonia, urinary tract infection , viral syndrome, sepsis, and influenza. - Data Points Laboratory Results: Laboratory Results 01/13/17 18:17 01/13/17 18:17 Microbiology Results: MICROBIOLOGY 01/13/17 18:17 Blood Blood Culture - Preliminary Medications Given: Acetaminophen (Tylenol) 650 mg PO Q4HRS PRN PRN Reason: Pain, Mild/Fever, Can Take PO Stop: 07/12/17 20:23 Last Admin: 01/15/17 03:24 Dose: 650 mg Atovaquone (Mepron) 1,500 mg PO DAILY [facility] Stop: 02/13/17 08:59 Last Admin: 01/15/17 08:37 Dose: 1,500 mg Azithromycin (Zithromax) 600 mg PO DAILY [facility] PRN Reason: Protocol Stop: 02/13/17 08:59 Last Admin: 01/15/17 09:15 Dose: 600 mg Ethambutol HCl (Myambutol) 1,200 mg PO DAILY [facility] PRN Reason: Protocol Stop: 02/13/17 08:59 Last Admin: 01/15/17 08:38 Dose: 1,200 mg Fluconazole (Diflucan) 200 mg PO DAILY [facility] Stop: 02/13/17 10:14 Last Admin: 01/15/17 08:35 Dose: 200 mg Guaifenesin (Robitussin Oral Liquid 200mg/10ml) 200 mg PO Q4HRS PRN PRN Reason: Cough, Mild Stop: 07/13/17 20:28 Last Admin: 01/14/17 21:04 Dose: 200 mg Lorazepam (Ativan) 0.5 - 1 mg PO Q6HRS PRN PRN Reason: Anxiety, Able to Take PO Stop: 07/14/17 04:27 Last Admin: 01/15/17 04:40 Dose: 1 mg Miscellaneous Medication (Difluprednate [Durezol]) 1 drop EACHEYE BID [facility] Stop: 07/12/17 20:59 Last Admin: 01/15/17 20:40 Dose: 1 drops Ondansetron HCl (Zofran Odt) 4 mg PO Q4HRS PRN PRN Reason: Nausea/Vomiting, Use 1st Stop: 07/12/17 20:23 Last Admin: 01/14/17 20:11 Dose: 4 mg Ondansetron HCl (Zofran) 4 mg IVP Q4HRS PRN PRN Reason: Nausea/Vomiting, Use 1st Stop: 07/12/17 21:59 Last Admin: 01/15/17 08:34 Dose: 4 mg Oxycodone HCl (Oxycodone Ir) 5 - 10 mg PO Q6HRS PRN PRN Reason: Pain, Severe Able to Take PO Stop: 01/25/17 04:28 Last Admin: 01/16/17 04:44 Dose: 5 mg Valganciclovir (Valcyte) 900 mg PO BID [facility] Stop: 01/30/17 21:30 Last Admin: 01/15/17 20:40 Dose: 900 mg Discontinued Medications Acetaminophen (Tylenol Rectal) 650 mg MI EDNOW ONE Stop: 01/13/17 18:29 Last Admin: 01/13/17 19:01 Dose: Not Given Acetaminophen (Tylenol) 1,000 mg PO EDNOW ONE Stop: 01/13/17 18:53 Last Admin: 01/13/17 18:58 Dose: 1,000 mg Cosyntropin (Cortrosyn Syringe) 0.25 mg IVP DAILY@0600 ONE Stop: 01/15/17 06:01 Last Admin: 01/15/17 05:27 Dose: 0.25 mg Fluconazole (Diflucan) 200 mg PO ONCE ONE Stop: 01/13/17 20:32 Last Admin: 01/13/17 22:36 Dose: 200 mg Sodium Chloride (Ns) 1,000 mls @ 0 mls/hr IV EDNOW ONE; Wide Open PRN Reason: Protocol Stop: 01/13/17 18:12 Last Admin: 01/13/17 18:27 Dose: 1,000 mls Sodium Chloride (Ns) 1,000 mls @ 0 mls/hr IV EDNOW ONE; Wide Open PRN Reason: Protocol Stop: 01/13/17 18:12 Last Admin: 01/13/17 18:28 Dose: 1,000 mls Pantoprazole Sodium 80 mg/ (Sodium Chloride) 100 mls @ 200 mls/hr IV ONCE ONE Stop: 01/13/17 19:10 Last Admin: 01/13/17 19:33 Dose: 100 mls Sodium Chloride (Ns) 1,000 mls @ 150 mls/hr IV CONT [facility] Stop: 07/12/17 20:29 Last Admin: 01/14/17 04:02 Dose: 1,000 mls Ondansetron HCl (Zofran) 4 mg IVP EDNOW ONE Stop: 01/13/17 18:12 Last Admin: 01/13/17 18:28 Dose: 4 mg Ondansetron HCl (Zofran) 4 mg IVP Q4HRS [facility] Stop: 07/12/17 21:59 Last Admin: 01/14/17 12:03 Dose: Not Given Pantoprazole Sodium (Protonix) 40 mg IVP BID [facility] Stop: 07/12/17 20:59 Last Admin: 01/14/17 12:03 Dose: Not Given Departure - Departure Disposition: [facility] Acute Clinical Impression: Vomiting Qualifiers: Vomiting type: unspecified Vomiting Intractability: non-intractable Nausea presence: with nausea Qualified Code(s): R11.2 - Nausea with vomiting, unspecified Fever Qualifiers: Fever type: due to other condition Qualified Code(s): R50.81 - Fever presenting with conditions classified elsewhere Condition: Fair Report Scribed for: Angy Dunn Report Scribed by: Lexi Fishman Date of Report: 01/13/17 Time of Report: 18:58 Physician Review and Approval Statement: 01/13/17 18:01 Portions of this note were transcribed by the medical library assistant. I, Dr. Angy Dunn, personally performed the history, physical exam, and medical decision- making; and confirmed the accuracy of the information in the transcribed note.
[2017-01-13] MEDS ORDERED: NS 1,000 ML IV ONE ×2 (18:11)
[2017-01-13] MEDS ORDERED: ONDANSETRON 4 MG/2 ML VIAL IVP ONE (18:11)
[2017-01-13] MEDS ORDERED: ACETAMINOPHEN 650 MG SUPP PR ONE (18:28)
[2017-01-13 18:29] LABS: % IMMATURE GRANULYOCYTES 2.9 % (0.0-1.1); ABSOLUTE IMMATURE GRANULOCYTES 0.15 10^3/uL (0.00-0.10); ADD DIFF? NO; ADD MORPH? NO; ADD SCAN? NO; ATYPICAL LYMPHOCYTE FLAG 0 (0-99); FRAGMENT RBC FLAG 0 (0-99); HEMATOCRIT 23.2 % (40.0-51.0); HEMOGLOBIN 8.1 g/dL (13.7-17.5); LEFT SHIFT FLG 40 (0-99); LIPEMIA HEMOLYSIS FLAG 90 (0-99); MEAN CELL HEMOGLOBIN 28.7 pg (27.9-34.1); MEAN CELL HEMOGLOBIN CONCENTR. 34.9 g/dL (32.4-36.7); MEAN CELL VOLUME 82.3 fL (81.5-99.8); MEAN PLATELET VOLUME 8.3 fL (8.7-11.7); PLATELET CLUMPS FLAG 0 (0-99); PLATELET COUNT 229 10^3/uL (150-400); RED BLOOD CELL COUNT 2.82 10^6/uL (4.40-6.38); RED CELL DISTRIBUTION WIDTH 15.3 % (11.5-15.2)
[2017-01-13 18:38] LABS: INR 1.02 (0.83-1.16); PROTIME(PATIENT) 13.6 SEC (12.0-15.0)
[2017-01-13 18:39] LABS: APTT 36.1 SEC (23.0-38.0)
[2017-01-13] MEDS ORDERED: PANTOPRAZOLE SODIUM 80 MG in NS 100 ML IV ONE (18:41)
[2017-01-13 18:47] LABS: ANION GAP 16 mEq/L (8-16); BILIRUBIN,TOTAL 0.2 mg/dL (0.1-1.4); CALCIUM 8.5 mg/dL (8.5-10.4); CARBON DIOXIDE 18 mEq/l (22-31); CHLORIDE 99 mEq/L (97-110); CREATININE 0.9 mg/dL (0.7-1.3); GLOMERULAR FILTRATION RATE > 60; GLUCOSE 104 mg/dL (70-100); SODIUM 133 mEq/L (134-144)
[2017-01-13] MEDS ORDERED: ACETAMINOPHEN 500 MG TAB PO ONE (18:52)
[2017-01-13 19:47] LABS: COLOR PALE YELLOW; LEUKOCYTE ESTERASE,URINE NEGATIVE (NEGATIVE); NITRITE,URINE NEGATIVE (NEGATIVE)
[2017-01-13 19:57] LABS: ALBUMIN 3.5 g/dL (3.5-5.0); BILIRUBIN,TOTAL 0.3 mg/dL (0.1-1.4); BILIRUBIN-CONJUGATED 0.1 mg/dL (0.0-0.5); BILIRUBIN-UNCONJUGATED 0.2 mg/dL (0.0-1.1); TOTAL PROTEIN 6.9 g/dL (6.3-8.2)
--- NOTE | 2017-01-13 20:03 | PDGENHP ---
History and Physical - Chief Complaint fever, nausea/vomiting - History of Present Illness 41 yo male recently diagnosed with HIV, now with aids defining illnesses including CMV retinitis and disseminated MAC, presents to ED with N/V and inability to tolerate his oral medications. He has had intermittent fevers, subjectively hot at night. He reports a productive cough for past 4-6 weeks and describes post-tussive emesis. He is being treated for thrush. He denies CP or SOB. He endorses some epigastric and RUQ pain. He was recently diagnosed with a duodenal ulcer. He is followed by Dr. Hartman for his HIV. He is admitted to the hospital for management of his nausea and vomiting in effort to ensure he tolerates his multiple new medications for end stage AIDS. History Information - Allergies/Home Medication List Allergies/Adverse Reactions: cephalexin monohydrate [From Keflex] Allergy (Verified 01/13/17 17:52) Other-Enter Comments Sulfa (Sulfonamide Antibiotics) Allergy (Verified 01/13/17 17:52) Other-Enter Comments Home Medications: Acetaminophen [Tylenol 325mg (*)] 650 mg PO Q6 PRN 01/13/17 [Last Taken Unknown] Atovaquone 1,500 mg PO DAILY 01/13/17 [Last Taken 01/12/17] Azithromycin [Zithromax] 600 mg PO DAILY 01/13/17 [Last Taken 01/13/17] Difluprednate [Durezol] 1 drop EACHEYE BID 01/13/17 [Last Taken 01/13/17 09:00] Dronabinol [Marinol] 5 mg PO DAILY 01/13/17 [Last Taken Unknown] Ethambutol HCl [Myambutol 400 MG (*)] 1,200 mg PO DAILY 01/13/17 [Last Taken ] Fluconazole [Diflucan (*)] 100 mg PO DAILY 01/13/17 [Last Taken Unknown] Fluconazole [Diflucan (*)] 200 mg PO DAILY 01/13/17 [Last Taken Unknown] Omeprazole 40 mg PO DAILY 01/13/17 [Last Taken 01/12/17] valGANciclovir [ValCYTE] 900 mg PO BID 01/13/17 [Last Taken 01/13/17 09:00] I have personally reviewed and updated: family history, medical history, social history, surgical history - Past Medical History Additional medical history: HIV with zero T cells. AIDS defining illnesses: Disseminated mycobacteria, CMV retinitis. PUD - Surgical History Reports: appendectomy - Family History Additional family history: brother had non-hodgkins lymphoma - Social History Smoking Status: Former smoker Alcohol Use: None Drug Use: None Additional social history: Lives at [facility]. Has a son. Girlfriend in bed with him here. Mom and brother at bedside Review of Systems Review of Systems: ROS: 10pt was reviewed & negative except for what was stated in HPI & below Physical Exam Physical Exam: Temp Pulse Resp BP Pulse Ox 38.1 C 128 H 18 78/56 L 92 01/13/17 17:52 01/13/17 17:52 01/13/17 17:52 01/13/17 17:52 01/13/17 17:52 Constitutional: chronically ill appearing Eyes: PERRL Ears, Nose, Mouth, Throat: moist mucous membranes Cardiovascular: regular rate and rhythym, no murmur, rub, or gallop Respiratory: no respiratory distress, clear to auscultation, reduced air movement Gastrointestinal: normoactive bowel sounds, other (mild epigastric TTP, no r/r/g , +BS) Skin: warm Musculoskeletal: full muscle strength Neurologic: AAOx3 Psychiatric: interacting appropriately Lab Data & Imaging Review 01/13/17 18:17 01/13/17 18:17 WBC 5.23 10^3/uL (3.80-9.50) 01/13/17 18:17 RBC 2.82 10^6/uL (4.40-6.38) L 01/13/17 18:17 Hgb 8.1 g/dL (13.7-17.5) L 01/13/17 18:17 Hct 23.2 % (40.0-51.0) L 01/13/17 18:17 MCV 82.3 fL (81.5-99.8) 01/13/17 18:17 MCH 28.7 pg (27.9-34.1) 01/13/17 18:17 MCHC 34.9 g/dL (32.4-36.7) 01/13/17 18:17 RDW 15.3 % (11.5-15.2) H 01/13/17 18:17 Plt Count 229 10^3/uL (150-400) 01/13/17 18:17 MPV 8.3 fL (8.7-11.7) L 01/13/17 18:17 Neut % (Auto) 88.6 % (39.3-74.2) H 01/13/17 18:17 Lymph % (Auto) 2.3 % (15.0-45.0) L 01/13/17 18:17 [place] % (Auto) 5.4 % (4.5-13.0) 01/13/17 18:17 Eos % (Auto) 0.6 % (0.6-7.6) 01/13/17 18:17 Baso % (Auto) 0.2 % (0.3-1.7) L 01/13/17 18:17 Nucleat RBC Rel Count 0.0 % (0.0-0.2) 01/13/17 18:17 Absolute Neuts (auto) 4.64 10^3/uL (1.70-6.50) 01/13/17 18:17 Absolute Lymphs (auto) 0.12 10^3/uL (1.00-3.00) L 01/13/17 18:17 Absolute Monos (auto) 0.28 10^3/uL (0.30-0.80) L 01/13/17 18:17 Absolute Eos (auto) 0.03 10^3/uL (0.03-0.40) 01/13/17 18:17 Absolute Basos (auto) 0.01 10^3/uL (0.02-0.10) L 01/13/17 18:17 Absolute Nucleated RBC 0.00 10^3/uL (0-0.01) 01/13/17 18:17 Immature Gran % 2.9 % (0.0-1.1) H 01/13/17 18:17 Immature Gran # 0.15 10^3/uL (0.00-0.10) H 01/13/17 18:17 PT 13.6 SEC (12.0-15.0) 01/13/17 18:17 INR 1.02 (0.83-1.16) 01/13/17 18:17 APTT 36.1 SEC (23.0-38.0) 01/13/17 18:17 VBG Lactic Acid 1.7 mmol/L (0.7-2.1) 01/13/17 18:17 Sodium 133 mEq/L (134-144) L 01/13/17 18:17 Potassium 4.0 mEq/L (3.5-5.2) 01/13/17 18:17 Chloride 99 mEq/L (97-110) 01/13/17 18:17 Carbon Dioxide 18 mEq/l (22-31) L 01/13/17 18:17 Anion Gap 16 mEq/L (8-16) 01/13/17 18:17 BUN 13 mg/dL (7-23) 01/13/17 18:17 Creatinine 0.9 mg/dL (0.7-1.3) 01/13/17 18:17 Estimated GFR > 60 01/13/17 18:17 Glucose 104 mg/dL (70-100) H 01/13/17 18:17 Calcium 8.5 mg/dL (8.5-10.4) 01/13/17 18:17 Total Bilirubin 0.2 mg/dL (0.1-1.4) 01/13/17 18:17 Urine Color PALE YELLOW 01/13/17 19:38 Urine Appearance CLEAR 01/13/17 19:38 Urine pH 6.0 (5.0-7.5) 01/13/17 19:38 Ur Specific Ferguson 1.003 (1.002-1.030) 01/13/17 19:38 Urine Protein NEGATIVE (NEGATIVE) 01/13/17 19:38 Urine Ketones NEGATIVE (NEGATIVE) 01/13/17 19:38 Urine Blood NEGATIVE (NEGATIVE) 01/13/17 19:38 Urine Nitrate NEGATIVE (NEGATIVE) 01/13/17 19:38 Urine Bilirubin NEGATIVE (NEGATIVE) 01/13/17 19:38 Urine Urobilinogen NEGATIVE EU (0.2-1.0) 01/13/17 19:38 Ur Leukocyte Esterase NEGATIVE (NEGATIVE) 01/13/17 19:38 Urine Glucose NEGATIVE (NEGATIVE) 01/13/17 19:38 Nasal Influenza A PCR NEGATIVE FOR FLU A (NEGATIVE) 01/13/17 18:32 Nasal Influenza B PCR NEGATIVE FOR FLU B (NEGATIVE) 01/13/17 18:32 Visualized and Interpreted Chest x-ray results: Yes Chest X-Ray results: no infiltrate Assessment & Plan Assessment: Hypotension and Tachycardia secondary to volume depletion in setting of nausea and vomiting - resolved with 2 L NS. Normal lactate. -Cont IV hydration -check am cortisol Nausea and vomiting - possibly due to new medications, also note PUD. Improved with anti-emetics. Goal is to manage his symptoms so he can tolerate medications below. -clears as tolerated -schedule zofran, prn phenergan -IV Protonix BID -IVF's as above HIV with AIDS defining illnesses as below. Discussed with ID, Dr. Hartman will see in am. Disseminated MAC - Ethambutol to be taken with Azithromycin (with food) CMV retinitis - Cont Valganciclovir PCP prevention with Atavoquone Oral thrush with some concern for esophageal candidiasis - Discussed with Dr. Salazar, GI. -Cont Fluconazole -GI to scope in am, NPO after midnight PUD - Cont PPI, change to IV due to N/V to reduce pill burden. Anemia - Appears chronic. ?blood loss from PUD. No e/o active bleeding. GI consulted. -EGD as above Full code DVT PPLX - SCD's for now, defer pharm given ulcer and low hgb Dispo - Admit to inpt, anticipate >48 hrs hospitalization for ongoing management of N/V and HIV/AIDS related illnesses.
[2017-01-13] MEDS ORDERED: PROMETHAZINE HCL 25 MG/ML INJ IVP PRN (20:24)
[2017-01-13] MEDS ORDERED: ONDANSETRON 4 MG/2 ML VIAL IVP PRN (20:24)
[2017-01-13] MEDS ORDERED: PROMETHAZINE HCL 25 MG TAB PO PRN (20:24)
[2017-01-13] MEDS ORDERED: FLUCONAZOLE 100 MG TAB PO ONE (20:31)
[2017-01-13] MEDS: NS 1,000 ML IV SCH (22:36)
[2017-01-13] MEDS: ONDANSETRON 4 MG/2 ML VIAL IVP SCH (22:36)
[2017-01-13] MEDS: PANTOPRAZOLE SODIUM 40 MG VIAL IVP SCH (22:36)
[2017-01-14] MEDS: ONDANSETRON 4 MG/2 ML VIAL IVP SCH ×3 (02:18→12:03)
[2017-01-14] MEDS: NS 1,000 ML IV SCH (04:02)
[2017-01-14] MEDS: ACETAMINOPHEN 325 MG TAB PO PRN ×3 (04:22→17:33)
--- NOTE | 2017-01-14 08:13 | PDMN ---
Medical Necessity Medical necessity: Patient meets INPT criteria per physician note and MCG Systemic or Infectious Condition GRG (systolic B/P 78 at admission, tachycardiac /HR 128; hx of HIV/AIDS with disseminated MAC, CMV retinitis, oral thrush; hx PUD, new AIDS meds possibly causing N/V, leading to volume depletion; anticipated LOS > 2 midnights for IV hydration, antiemetics, PPI, pending endoscopy with further eval and treatment.)
[2017-01-14] MEDS ORDERED: FLUCONAZOLE 100 MG TAB PO SCH (09:00)
--- NOTE | 2017-01-14 09:32 | PDANEPAE ---
ANE History of Present Illness Vomiting times about 3 days ANE Past Medical History - Cardiovascular History Hx Hypertension: No - Pulmonary History Hx Oxygen in Use at Home: No Hx Sleep Apnea: No Sleep Apnea Screening Result - Last Documented: Negative - Endocrine History Hx Diabetes: No - Chronic Pain History Chronic Pain: No ANE Review of Systems Review of Systems: - Exercise capacity METS (RN): 4 METS ANE Patient History - Allergies Allergies/Adverse Reactions: cephalexin monohydrate [From Keflex] Allergy (Verified 01/13/17 17:52) Other-Enter Comments Sulfa (Sulfonamide Antibiotics) Allergy (Verified 01/13/17 17:52) Other-Enter Comments - Home Medications Home Medications: Acetaminophen [Tylenol 325mg (*)] 650 mg PO Q6 PRN 01/13/17 [Last Taken Unknown] Atovaquone 1,500 mg PO DAILY 01/13/17 [Last Taken 01/12/17] Azithromycin [Zithromax] 600 mg PO DAILY 01/13/17 [Last Taken 01/13/17] Difluprednate [Durezol] 1 drop EACHEYE BID 01/13/17 [Last Taken 01/13/17 09:00] Dronabinol [Marinol] 5 mg PO DAILY 01/13/17 [Last Taken Unknown] Ethambutol HCl [Myambutol 400 MG (*)] 1,200 mg PO DAILY 01/13/17 [Last Taken ] Fluconazole [Diflucan (*)] 100 mg PO DAILY 01/13/17 [Last Taken Unknown] Fluconazole [Diflucan (*)] 200 mg PO DAILY 01/13/17 [Last Taken Unknown] Omeprazole 40 mg PO DAILY 01/13/17 [Last Taken 01/12/17] valGANciclovir [ValCYTE] 900 mg PO BID 01/13/17 [Last Taken 01/13/17 09:00] - NPO status NPO Since - Liquids (Date): 01/14/17 NPO Since - Liquids (Time): 00:00 NPO Since - Solids (Date): 01/14/17 NPO Since - Solids (Time): 00:00 - Anes Hx Anes Hx: no prior problems - Smoking Hx Smoking Status: Former smoker - Alcohol Use Alcohol Use: None ANE Labs/Vital Signs - Labs Result Diagrams: 01/13/17 18:17 01/13/17 18:17 - Vital Signs Blood Pressure: 105/62 Heart Rate: 83 Respiratory Rate: 17 O2 Sat (%): 98 Height: 167.64 cm Weight: 56.7 kg ANE Physical Exam - Airway Neck exam: FROM Mallampati Score: Class 2 Mouth exam: normal dental/mouth exam - Pulmonary Pulmonary: no respiratory distress - Cardiovascular Cardiovascular: regular rate and rhythym - ASA Status ASA Status: III ANE Anesthesia Plan Anesthesia Plan: MAC
[2017-01-14] MEDS ORDERED: PROPOFOL 200 MG/20 ML VIAL ONE ×2 (09:37)
[2017-01-14] MEDS ORDERED: LIDOCAINE 2% 5 ML SDV ONE (09:37)
[2017-01-14] MEDS ORDERED: NALOXONE HCL 0.4 MG/ML INJ IVP PRN (09:48)
--- NOTE | 2017-01-14 09:52 | GIREPORT ---
[facility] Surgical Services - Endoscopy Department Patient Name: Ramses Humphrey Procedure Date: 01/14/2017 9:05 AM Patient Type: Inpatient Attending MD/ ER Physician: Elaina Salazar MD Procedure: Upper GI endoscopy Indications: Odynophagia, Nausea with vomiting, AIDS, remote h/o DU Providers: Elaina Salazar MD Medicines: Monitored Anesthesia Care Complications: No immediate complications. Description of Procedure: After obtaining informed consent, the endoscope was passed under direct vision. Throughout the procedure, the patient's blood pressure, pulse, and oxygen saturations were monitored continuously. The Endoscope was intro duced through the mouth, and advanced to the second part of duodenum. [facility] GI endoscopy was accomplished without difficulty. The patient tolerated th e procedure well. Findings: Diffuse candidiasis was found in the entire esophagus. Biopsies were ta luz with a cold forceps for histology. Estimated blood loss was minimal. The entire examined stomach was normal. Biopsies were taken with a cold forceps for histology. Estimated blood loss was minimal. The examined duodenum was normal. Estimated Blood Loss: Estimated blood loss was minimal. Post Op Diagnosis: - Diffuse exudate in esophagus most likely monilial esophagitis. Biopsi ed. No ulcerations of esophagus to suggest viral esophagitis. - Normal stomach. Biopsied. - Normal examined duodenum. Recommendation: - Await pathology results. - Advance diet as tolerated. - Return patient to [facility] for ongoing care. - Will sign off. - Thank you for allowing me to participate in the care of your patient. Attending Participation: I personally performed the entire procedure. Elaina Salazar MD Elaina Salazar MD 01/14/2017 9:52:25 AM This report has been signed electronicallyElaina Salazar MD Number of Addenda: 0 Note Initiated On: 01/14/2017 9:05 AM [email or web address]
--- NOTE | 2017-01-14 09:53 | POSTOPPROG ---
Post Op Note Date of Operation: 01/14/17 Surgeon: Elaina Salazar Pre-op Diagnosis: n/v Post-op Diagnosis: esophagitis Indication: n/v Procedure: EGD Inf/Abcess present in the surg proc area at time of surgery?: No Complications: none Specimen(s): gastric and eso biopsies
--- NOTE | 2017-01-14 09:56 | POSTANESTH ---
Post Anesthetic Evaluation Cardiovascular Status: Normal, Stable Respiratory Status: Normal, Stable Level of Consciousness/Mental Status: Can Participate in Eval Pain Control: Adequate, Prn Tx Ordered Nausea/Vomiting Control: Adequate, Prn Tx Ordered Complications Possibly Related to Anesthesia: None Noted
[2017-01-14] MEDS ORDERED: ONDANSETRON 4 MG/2 ML VIAL IVP PRN (10:30)
--- NOTE | 2017-01-14 10:33 | PCMIDPN ---
Assessment/Plan: 1. CMV retinitis of the right eye: Continue valganciclovir 900 mg p.o. twice daily. Patient understands we need to make sure that he keeps all of his medications down. He cannot be discharged until we ensure he tolerates all of his medication. He is also on Durezol eyedrops (corticosteroid). No evidence of CMV colitis or esophagitis. 2. 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 I have asked the patient's nurse to stagger his medications, but azithromycin and ethambutol need to be taken together. 3. Prophylaxis: Patient has a history of a desquamating rash to sulfa. Continue Mepron for Pneumocystis prophylaxis. Of note, He is toxoplasmosis IgG negative. 4. Aids: Will need to treat for active CMV retinitis and disseminated MAC for 2 weeks prior to initiation of antiretrovirals. 5. Esophageal candidiasis: This is extensive in nature. Will increase fluconazole to 200 mg p.o. daily for at least 14 days. Will obtain baseline EKG in the setting of possible QT prolongation with fluconazole, azithromycin, and Zofran. Sincerely appreciate 'assistance. 6. History of duodenal ulcer: No evidence of ulceration on EGD. Discontinue omeprazole. 7. Miscellaneous: Obtain a.m. cortisol. Suspect electrolyte abnormalities related to nausea and vomiting. Also, someone from the [employer] AIDS project will be coming by to see the patient later this afternoon to help him with insurance issues, etc. Over 35 mins spent with this pt today. Subjective: I met this patient for the 1st time this past week. He is an unfortunate 41- year-old male with end-stage AIDS (T-cell count of 0, viral load of over 2 million). He has an active diagnosis of CMV retinitis in the right eye ( followed by Dr. Jian Kraus), as well probable disseminated MAC. (Blood culture and sputum culture grew AFB, TB DNA probe negative). I saw him in clinic on Tuesday. We were able to get him established with the AIDS drug assistance program, and by Tuesday night the patient had started taking medication for disseminated MAC and CMV retinitis. Unfortunately, the patient developed significant nausea and vomiting (he was taking all of the medications at once, as opposed to staggering them), and was admitted last night for dehydration. He is status post EGD done at my request given his history of duodenal ulcer and concern for probable esophageal candidiasis by clinical history. EGD showed extensive esophageal candidiasis, but stomach and duodenum were normal without any evidence of gastritis or ulceration. No obvious evidence of CMV esophagitis. I saw the patient in the PACU this morning. He is feeling better. We talked about the fact that he cannot refuse blood draws moving forward. (The patient has a phobia with needles). He did take Valcyte last night without issue. He does continue to have some chest pain that I feel is likely related to the esophageal candidiasis. Objective: Azithromycin 600 mg daily Ethambutol 1200 mg p.o. daily Valcyte 900 mg p.o. twice daily Fluconazole 100 mg p.o. daily Zofran Mepron 1500 mg daily T-max 38.1degrees Vital Signs Temp Pulse Resp BP Pulse Ox 36.7 C 83 19 110/71 98 01/14/17 08:45 01/14/17 09:32 01/14/17 10:15 01/14/17 10:15 01/14/17 10:15 01/13/17 01/14/17 01/15/17 05:59 05:59 05:59 Intake Total 2000 Output Total 400 Balance 1600 Previous blood culture grew AFB TB DNA probe negative - Physical Exam General Appearance: alert, no apparent distress, cachetic EENT: other (Minimal oral candidiasis.) Respiratory: lungs clear Cardiac/Chest: regular rate, rhythm Abdomen: non-tender, soft Skin: No rash Neuro/Psych: oriented x 3 ICD10 Worksheet Patient Problems: Problems Problem Status Onset Fever Acute Vomiting Acute Anemia Acute
--- NOTE | 2017-01-14 11:26 | CPEKG ---
Heart Rate: 82 RR Interval: 732 P-R Interval: 160 QRSD Interval: 80 QT Interval: 388 QTC Interval: 453 P [place]: 58 QRS [place]: 71 T Wave [place]: 40 EKG Severity - NORMAL ECG - EKG Impression: SINUS RHYTHM Electronically Signed By: Anmol Arellano 15-Jan-2017 13:23:33
[2017-01-14] MEDS: ONDANSETRON DISINTEGRATING 4 MG TAB PO PRN ×2 (11:27→20:11)
--- NOTE | 2017-01-14 11:43 | PDCONSULT ---
Admissions Gate Attendant Note: GI Consult Note CC anemia HPI: I am asked to see this patient in consultation by Dr. Lin for chief complaint of anemia. He is a 41 yo with HIV and AIDS with anemia with remote h/ o Du 10 years ago. He dose have some epigastric pain and is concerned he may have recurrent DU. He denies melena and BRBPR. He does have some diarrhea no constipation. No vomiting and no hematemesis. He has had recent oral thrush and note odynophagia recent. He began Diflucan 1 day ago. Of note the dictation system is down and this note was hand typed hours after consultation. Allergies: Kelfex, sulfa Medication: tylenol, atovaquone, azithromycin, marinol, diflucan, omeprazole Past medical history: AIDS with disseminated mycobacterium, CMV retinitis, h/u PUD Family history: brother with non Hodgkin's lymphoma Social history: former smoker Review os Systems; I have performed a complete review of systems which is negative except for pertinent negative and positives noted in the HPI. PE: 36.7 105/62 83 Constitutional: alert and oriented Eyes: no scleral icterus HEENT: no oral lesion or thrush seen CV rrr Chest clear to auscultation GI: soft but mild tenderness in epigastric area Neuro non focal Skin no rashes WBC 5.23 HCT 23.2 PLT 229 Bun/ creat 13/.0 PT 13.6 INR 1.02 Assessment: Pt with AIDS and anemia but no e/o active bleeding. He has remote h/ o PUD. He is undergoing treatment for oral thrush. Given odynophagia suspect jillian esophagitis. Recommend EGD for further evaluation. Plan: EGD today with anesthesia
[2017-01-14] MEDS: ATOVAQUONE 750 MG/5 ML PO SCH (11:58)
[2017-01-14] MEDS: FLUCONAZOLE 100 MG TAB PO SCH (12:02)
[2017-01-14] MEDS: PANTOPRAZOLE SODIUM 40 MG VIAL IVP SCH (12:03)
[2017-01-14 12:27] LABS: ANION GAP 11 mEq/L (8-16); CALCIUM 7.8 mg/dL (8.5-10.4); CARBON DIOXIDE 22 mEq/l (22-31); CHLORIDE 105 mEq/L (97-110); CREATININE 0.7 mg/dL (0.7-1.3); GLOMERULAR FILTRATION RATE > 60; GLUCOSE 92 mg/dL (70-100); SODIUM 138 mEq/L (134-144)
[2017-01-14 12:52] LABS: CORTISOL-AM 6.8 ug/dL (4.5-22.7)
[2017-01-14] MEDS: ETHAMBUTOL HCL 400 MG TAB PO SCH (13:02)
[2017-01-14] MEDS: AZITHROMYCIN 600 MG TAB PO SCH (13:03)
--- NOTE | 2017-01-14 16:54 | ASMTCMCOM ---
CM Note CM Note Notes: Pt admitted with N/V and dehydration, unable to tolerate meds. He has recent diagnosis of HIV and AIDS. Per H&P, pt lives at [facility] in [place] and girlfiend, mom, and brother were at bedside. Pt now being seen at [facility] (Dr Hartman) and recently connected with AIDS drug assistance program. Anticipate that he will return to current living situation at [facility] [place]. Case Management will follow for needs that may develop. Date Signed: 01/14/2017 04:54 PM Electronically Signed By:Vani Reese RN
--- NOTE | 2017-01-14 17:37 | HOSPPROG ---
Hospitalist Progress Note Assessment/Plan: * Diane esophagitis -fluconazole -advance diet as tolerated * HIV/AIDS -start HAART after 2 weeks tx MAC/CMV * Disseminated MAC -ethambutol, azithromycin * CMV retinitis -valganciclovir * Anemia - follow * Low am cortisol -check tyrell stim test in am Subjective: No new complaints Objective: Vital Signs Temp Pulse Resp BP Pulse Ox 37.4 C 98 14 113/74 98 01/14/17 15:30 01/14/17 15:30 01/14/17 15:30 01/14/17 15:30 01/14/17 15:30 Laboratory Results 01/14/17 11:37 01/13/17 01/14/17 01/15/17 05:59 05:59 05:59 Intake Total 2000 300 Output Total 400 Balance 1600 300 PT 13.6 SEC (12.0-15.0) 01/13/17 18:17 INR 1.02 (0.83-1.16) 01/13/17 18:[address] Hartman - discharge when tolerating PO CXR - negative - Physical Exam Constitutional: no apparent distress, appears nourished, not in pain Cardiovascular: regular rate and rhythym, no murmur, rub, or gallop Respiratory: no respiratory distress, no rales or rhonchi, clear to auscultation Gastrointestinal: normoactive bowel sounds, soft, non-tender abdomen, no palpable masses Skin: no rashes or abrasions, no fluctuance, no induration Neurologic: AAOx3, sensation intact bilaterally Psychiatric: interacting appropriately, not anxious, not encephalopathic, thought process linear ICD10 Worksheet Patient Problems: Problems Problem Status Onset Fever Acute Vomiting Acute Anemia Acute
[2017-01-14] MEDS ORDERED: guaiFENesin 200 MG/10 ML UDL PO PRN (20:29)
[2017-01-15] MEDS: ACETAMINOPHEN 325 MG TAB PO PRN (03:24)
[2017-01-15] MEDS ORDERED: LORazepam 1 MG TAB PO PRN (04:28)
[2017-01-15 05:46] LABS: % IMMATURE GRANULYOCYTES 1.3 % (0.0-1.1); ABSOLUTE IMMATURE GRANULOCYTES 0.03 10^3/uL (0.00-0.10); ADD DIFF? NO; ADD MORPH? NO; ADD SCAN? NO; ATYPICAL LYMPHOCYTE FLAG 0 (0-99); FRAGMENT RBC FLAG 0 (0-99); HEMATOCRIT 20.9 % (40.0-51.0); HEMOGLOBIN 7.1 g/dL (13.7-17.5); LEFT SHIFT FLG 20 (0-99); LIPEMIA HEMOLYSIS FLAG 90 (0-99); MEAN CELL HEMOGLOBIN 28.6 pg (27.9-34.1); MEAN CELL VOLUME 84.3 fL (81.5-99.8); MEAN PLATELET VOLUME 8.7 fL (8.7-11.7); PLATELET CLUMPS FLAG 10 (0-99); PLATELET COUNT 210 10^3/uL (150-400); RED BLOOD CELL COUNT 2.48 10^6/uL (4.40-6.38); RED CELL DISTRIBUTION WIDTH 15.3 % (11.5-15.2)
[2017-01-15 05:57] LABS: ANION GAP 12 mEq/L (8-16); CALCIUM 8.1 mg/dL (8.5-10.4); CARBON DIOXIDE 21 mEq/l (22-31); CHLORIDE 101 mEq/L (97-110); CREATININE 0.7 mg/dL (0.7-1.3); GLOMERULAR FILTRATION RATE > 60; GLUCOSE 100 mg/dL (70-100); SODIUM 134 mEq/L (134-144)
[2017-01-15] MEDS ORDERED: COSYNTROPIN 0.25 MG/2 ML SYRINGE IVP ONE (06:00)
[2017-01-15 06:25] LABS: CORTISOL-AM 7.3 ug/dL (4.5-22.7)
[2017-01-15] MEDS: FLUCONAZOLE 100 MG TAB PO SCH (08:35)
[2017-01-15] MEDS: ATOVAQUONE 750 MG/5 ML PO SCH (08:37)
[2017-01-15] MEDS: ETHAMBUTOL HCL 400 MG TAB PO SCH (08:38)
[2017-01-15] MEDS: AZITHROMYCIN 600 MG TAB PO SCH (09:15)
--- NOTE | 2017-01-15 12:57 | PCMIDPN ---
Assessment/Plan: Assessment/Plan: * CMV retinitis of the right eye: Continue valganciclovir 900 mg orally twice daily. 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 Await definitive ID of mycobacterium. * Esophageal candidiasis: Continue fluconazole 200 mg orally daily. Patient notes decrease in symptoms. * AIDS: Plan to start anti-retroviral therapy once he has completed 2 weeks of treatment for CMV retinitis and disseminated MAC in order to avoid increased risk of IRIS. * OI prophylaxis: Continue atovaquone for PCP prophylaxis given sulfonamide allergy. Toxo IgG negative as noted by Dr. Hartman. * Nausea/vomiting: Clinically improved today. Tolerating medication intake to date. Cortrosyn stim test shows stimulation. 01/15/17 12:54 Subjective: Patient overall feels better. Vision in right eye about the same. No pain with swallowing and less upper chest discomfort. Objective: Vital Signs Temp Pulse Resp BP Pulse Ox 36.8 C 90 16 109/77 97 01/15/17 11:24 01/15/17 11:24 01/15/17 11:24 01/15/17 11:24 01/15/17 11:24 Laboratory Results 01/15/17 05:10 01/15/17 05:10 01/14/17 01/15/17 01/16/17 05:59 05:59 05:59 Intake Total 2000 900 Output Total 400 Balance 1600 900 Valganciclovir 900 mg twice daily Azithromycin 600 mg orally daily Ethambutol 1200 mg orally daily Fluconazole 200 mg p.o. daily Total: 59 mg p.o. daily EKG with QTC 453 - Physical Exam General Appearance: alert, no apparent distress EENT: No scleral icterus, No thrush Respiratory: lungs clear, No respiratory distress Cardiac/Chest: regular rate, rhythm Abdomen: non-tender, No distended Skin: No rash ICD10 Worksheet Patient Problems: Problems Problem Status Onset Fever Acute Vomiting Acute Anemia Acute
[2017-01-15] MEDS: oxyCODONE IR 5 MG TAB PO PRN (15:12)
--- NOTE | 2017-01-15 16:57 | HOSPPROG ---
Hospitalist Progress Note Assessment/Plan: * Diane esophagitis -fluconazole -advance diet as tolerated * HIV/AIDS -start HAART after 2 weeks tx MAC/CMV * Disseminated MAC -ethambutol, azithromycin * CMV retinitis -valganciclovir * Anemia - follow -check iron studies, retic count -? BM infiltration * Low am cortisol -check tyrell stim with appropriate response (but borderline) Subjective: Eating better Objective: Vital Signs Temp Pulse Resp BP Pulse Ox 37.3 C 97 18 119/81 H 97 01/15/17 15:08 01/15/17 15:08 01/15/17 15:08 01/15/17 15:08 01/15/17 15:08 Laboratory Results 01/15/17 05:10 01/15/17 05:10 01/14/17 01/15/17 01/16/17 05:59 05:59 05:59 Intake Total 2000 900 Output Total 400 Balance 1600 900 PT 13.6 SEC (12.0-15.0) 01/13/17 18:17 INR 1.02 (0.83-1.16) 01/13/17 18:17 - Physical Exam Constitutional: no apparent distress, appears nourished, not in pain Cardiovascular: regular rate and rhythym, no murmur, rub, or gallop Respiratory: no respiratory distress, no rales or rhonchi, clear to auscultation Gastrointestinal: normoactive bowel sounds, soft, non-tender abdomen, no palpable masses Skin: no rashes or abrasions, no fluctuance, no induration Neurologic: AAOx3, sensation intact bilaterally Psychiatric: interacting appropriately, not anxious, not encephalopathic, thought process linear ICD10 Worksheet Patient Problems: Problems Problem Status Onset Fever Acute Vomiting Acute Anemia Acute
[2017-01-15 19:33] VITALS: RESP 16
[2017-01-16] MEDS ORDERED: ONDANSETRON DISINTEGRATING 4 MG TAB PO SCH
[2017-01-16 04:39] VITALS: PULSE 95
[2017-01-16] MEDS: oxyCODONE IR 5 MG TAB PO PRN ×2 (04:44→14:08)
[2017-01-16 04:48] LABS: % IMMATURE GRANULYOCYTES 1.7 % (0.0-1.1); ABSOLUTE IMMATURE GRANULOCYTES 0.05 10^3/uL (0.00-0.10); ADD DIFF? NO; ADD MORPH? NO; ADD SCAN? NO; ATYPICAL LYMPHOCYTE FLAG 0 (0-99); FRAGMENT RBC FLAG 50 (0-99); HEMATOCRIT 22.8 % (40.0-51.0); HEMOGLOBIN 7.5 g/dL (13.7-17.5); LEFT SHIFT FLG 20 (0-99); LIPEMIA HEMOLYSIS FLAG 80 (0-99); MEAN CELL HEMOGLOBIN 27.8 pg (27.9-34.1); MEAN CELL HEMOGLOBIN CONCENTR. 32.9 g/dL (32.4-36.7); MEAN CELL VOLUME 84.4 fL (81.5-99.8); MEAN PLATELET VOLUME 8.3 fL (8.7-11.7); PLATELET CLUMPS FLAG 10 (0-99); PLATELET COUNT 228 10^3/uL (150-400); RED CELL DISTRIBUTION WIDTH 15.2 % (11.5-15.2)
[2017-01-16 04:58] LABS: ANION GAP 11 mEq/L (8-16); CALCIUM 8.2 mg/dL (8.5-10.4); CARBON DIOXIDE 25 mEq/l (22-31); CHLORIDE 98 mEq/L (97-110); CREATININE 0.7 mg/dL (0.7-1.3); GLOMERULAR FILTRATION RATE > 60; GLUCOSE 92 mg/dL (70-100); POTASSIUM 4.6 mEq/L (3.5-5.2); SODIUM 134 mEq/L (134-144)
[2017-01-16 05:07] LABS: % SATURATION 9 % (20-55); TOTAL IRON BINDING CAPACITY 269 ug/dL (260-490)
[2017-01-16 07:11] VITALS: BP 102/82; TEMP 98.5; O2SAT 95
[2017-01-16] MEDS: ATOVAQUONE 750 MG/5 ML PO SCH (09:49)
[2017-01-16] MEDS: ONDANSETRON DISINTEGRATING 4 MG TAB PO PRN (09:49)
[2017-01-16] MEDS: ETHAMBUTOL HCL 400 MG TAB PO SCH (09:50)
[2017-01-16] MEDS: AZITHROMYCIN 600 MG TAB PO SCH (09:51)
[2017-01-16] MEDS: FLUCONAZOLE 100 MG TAB PO SCH (09:53)
--- NOTE | 2017-01-16 14:50 | ASMTCMCOM ---
CM Note CM Note Notes: Patient discharging back to [facility] ([phone]). Dr Macias signed a form that he needs to bring back to the facility. I helped patient obtain some Zofran through [facility]. He has a follow up appointment with Dr Hartman 01/18 @10:30 at which time they will help him obtain his other medications. I gave him a bus voucher for transport. Date Signed: 01/16/2017 02:50 PM Electronically Signed By:Kathy Bledsoe RN
--- NOTE | 2017-01-16 15:51 | ASDISCHSUM ---
Discharge Information Plan Status:Home with No Needs Medically Cleared to Leave: Discharge Date:01/16/2017 02:48 PM CM D/C Disposition:Home, Routine, Self-Care ADT D/C Disposition:Home, Routine, Self-Care Projected Discharge Date:01/16/2017 02:48 PM Transportation at D/C:Bus Ticket Discharge Delay Reason: Follow-Up Date:01/16/2017 02:48 PM Discharge Slot: Final Diagnosis: Placement Information Patient Contact Information Contact Name:LEONELA Relationship:Friend Address: Work Phone: City: [facility] Phone: State/Zip Code: Email: Financial Information Financial Class:Self-Pay Primary Plan Desc:[facility] Primary Plan Number:[id number] Secondary Plan Desc: Secondary Plan Number: Assessment Information [facility] CM Progress Note CM Note CM Note Notes: Pt admitted with N/V and dehydration, unable to tolerate meds. He has recent diagnosis of HIV and AIDS. Per H&P, pt lives at [facility] in [place] and girlfiend, mom, and brother were at bedside. Pt now being seen at [facility] (Dr Hartman) and recently connected with AIDS drug assistance program. Anticipate that he will return to current living situation at [facility]. Case Management will follow for needs that may develop. Date Signed: 01/14/2017 04:54 PM Electronically Signed By:Vani Reese RN [facility] CM Progress Note CM Note CM Note Notes: Patient discharging back to [facility] ([phone]). Dr Macias signed a form that he needs to bring back to the facility. I helped patient obtain some Zofran through [facility]. He has a follow up appointment with Dr Hartman 01/18 @10:30 at which time they will help him obtain his other medications. I gave him a bus voucher for transport. Date Signed: 01/16/2017 02:50 PM Electronically Signed By:Kathy Bledsoe RN Intervention Information
--- NOTE | 2017-01-16 20:40 | GDS ---
[f rep st] DISCHARGE SUMMARY DISCHARGE DIAGNOSES: 1. Diane esophagitis with intractable nausea and vomiting. 2. Human immunodeficiency virus/acquired immune deficiency syndrome. 3. Disseminated mycobacterium avium complex. 4. Cytomegalovirus retinitis. 5. Anemia. HISTORY: The patient is a 41-year-old male, recently diagnosed with HIV/AIDS and just initiating the rapy at this time. He was having a difficult time tolerating his oral medications, possibly due to h is Diane esophagitis. He underwent EGD, and Diane esophagitis was confirmed. He should continue on fluconazole 200 mg p.o. daily for at least 14 days of therapy. He is also on ethambutol and azit hromycin for disseminated MAC and valganciclovir for CMV retinitis. He was taking all these medicati ons at once, and he was having a difficult time tolerating it. We spread his medications out and adm inistered oral Zofran prior to drug administration. He was able to tolerate medications without diff iculty at discharge. He will need to wait 2 weeks after initiating treatment for MAC and CMV prior t o starting anti-retroviral therapy. At this point, his CD4 count is 0 and his viral load is 2 millio n. He was very anemic during this hospitalization, and iron studies and reticulocyte count were sent. T here was a question of possible bone marrow infiltration. His H and H is stable, so this can continu e to be followed up as an outpatient. DISCHARGE MEDICATIONS: Please see computerized record for full detailed list. New medications: 1. Fluconazole 200 mg p.o. daily for at least 14 days. 2. Zofran ODT 4 mg every 4 hours as needed. 3. Oxycodone 5-10 mg every 6 hours as needed, 10 tablets were dispensed. Indication for oxycodone i s severe right eye pain due to CMV retinitis, which was contributing to his nausea and vomiting. Ple ase note, this patient does have a history of narcotics abuse, and very judicious narcotic administra tion should be pursued. Greater than 30 minutes' time was spent arranging this discharge. Patient was seen and examined by maik walker on the day of discharge. /[id number]/MODL
== END 2017-01-16 14:48 | disposition home or self-care (01) | DRG 976 ==
LOC: F3E 20:25
PROVIDERS: ADMIT Hospitalist; ATTEND Hospitalist
DX: B20 Human immunodeficiency virus [HIV] disease (principal); B37.81 Candidal esophagitis; B25.8 Other cytomegaloviral diseases; H32 Chorioretinal disorders in diseases classified elsewhere; A31.2 Disseminated mycobacterium avium-intracellulare complex (DMAC); D63.8 Anemia in other chronic diseases classified elsewhere; E86.9 Volume depletion, unspecified; Z87.891 Personal history of nicotine dependence
CPT/HCPCS: 82607-90; 96374; J0834; J2405; J2704

== ENCOUNTER 2017-02-10 16:25 | Inpatient (IN) | payer MEDICAID, OTHER ==
--- NOTE | 2017-02-10 17:16 | EDPHY ---
H & P Stated Complaint: nausea from new medication x 4 days Time Seen by Provider: 02/10/17 16:42 HPI/ROS: Chief Complaint: Nausea, abdominal pain HPI: A 41-year-old HIV-positive male who was diagnosed only 1 month ago. At that time he had a T-cell count of 0 and a viral load of several million. Patient is under the care of Dr. Hartman. Patient was recently changed their medications on the and . Since that time has had persistent nausea. He is not vomiting. He is tolerating his medications. He is drinking Pedialyte and water but not eating food. He is also having epigastric abdominal pain which is worsening. He has been diagnosed with 2 opportunistic infections, CMV and MAC. No fevers or chills. Is taking Zofran with minimal relief. Is having a nonproductive cough which is exacerbating his abdominal pain. He was sent in by Dr. Hartman for blood work and further evaluation. ROS: 10 point Review of Systems is negative except as noted in the HPI. PMH: HIV positive with a T-cell count of 0 and a viral load of several million Social History: No smoking Family History: non-contributory Physical Exam: Gen: Awake, Alert, very frail-appearing HEENT: Nose: no rhinorrhea Eyes: PERRLA, EOMI Mouth: Moist mucosa Neck: Supple, no JVD Chest: nontender, lungs clear to auscultation Heart: S1, S2 normal, no murmur Abd: Diffuse tenderness with guarding Back: no CVA tenderness, no midline tenderness Ext: no edema, non-tender Skin: no rash Neuro: CN II-XII intact, Sensation grossly intact, Strength 5/5 in bilateral upper and lower extremities - Personal History Current Tetanus Diphtheria and Acellular Pertussis (TDAP): Yes Tetanus Vaccine Date: 2011 - Medical/Surgical History Hx Asthma: No Hx Chronic Respiratory Disease: No Hx Diabetes: No Hx Cardiac Disease: No Hx Renal Disease: No Hx Cirrhosis: No Hx Alcoholism: No Hx HIV/AIDS: Yes Hx Splenectomy or Spleen Trauma: No Other PMH: S/P APPY @ 8YRS OF AGE; HIV+-diagnosed Dec 2016 - Social History Smoking Status: Former smoker Constitutional: Initial Vital Signs Temperature (C) 36.4 C 02/10/17 16:26 Heart Rate 89 02/10/17 16:26 Respiratory Rate 18 02/10/17 16:26 Blood Pressure 94/49 L 02/10/17 16:26 O2 Sat (%) 100 02/10/17 16:26 O2 Delivery Mode Room Air Allergies/Adverse Reactions: cephalexin monohydrate [From Keflex] Allergy (Verified 01/13/17 17:52) Other-Enter Comments Sulfa (Sulfonamide Antibiotics) Allergy (Verified 01/13/17 17:52) Other-Enter Comments Home Medications: Medication Instructions Recorded Acetaminophen [Tylenol 325mg (*)] 650 mg PO Q6 PRN 01/13/17 Atovaquone 1,500 mg PO DAILY 01/13/17 Azithromycin [Zithromax] 600 mg PO DAILY 01/13/17 Difluprednate [Durezol] 1 drop EACHEYE BID 01/13/17 Ethambutol HCl [Myambutol 400 MG 1,200 mg PO DAILY 01/13/17 (*)] valGANciclovir [ValCYTE] 900 mg PO DAILY 01/13/17 Ondansetron Odt [Zofran Odt 4 mg 4 mg PO Q4 #30 tab 01/16/17 (*)] Dolutegravir Sodium [Tivicay] 50 mg PO DAILY 02/10/17 Emtricitabine/Tenofovir [Truvada 1 tab PO DAILY8 02/10/17 200MG/300MG (*)] Ibuprofen [Motrin (*)] 200 - 400 mg PO DAILY PRN 02/10/17 Rifabutin [Mycobutin 150 mg (RX)] 300 mg PO DAILY10 02/10/17 Medical Decision Making ED Course/Re-evaluation: Case discussed with Dr. Hartman, patient's infectious disease doctor. She would like a CBC with differential and a CMP. She would also like a CT scan of the abdomen pelvis with IV and oral contrast. Patient's laboratory evaluations are noted. Hematocrit is low but not significantly changed from prior. He is in acute renal failure which is likely pre renal but also could be secondary to his medications. I have discussed again with Dr. Hartman, infectious Disease. Pt has received oral contrast. Certainly should not have IV contrast. I have asked the delivery technician to call CT to make sure they do not give him IV contrast. She was all his medications help. She that the patient admitted to the hospitalist. Discussed with Dr. Reyez, hospitalist. Will admit to [facility] for further care. 2001 CT scan results discussed with Dr. Seay. During the course of conversation he noted that the patient unfortunately did receive IV contrast, 90 cc. I have paged Nephrology and the hospitalist. Discussed with Dr. Reyez, hospitalist. I have also discussed with Dr. Cason, urology. She is recommending a repeat normal saline bolus and continuing am at a rate of 100-125 an hour overnight. No indications for any other treatment at this time. She will consult on the patient in the morning. - Data Points Laboratory Results: Laboratory Results 02/10/17 17:20 02/10/17 17:20 02/10/17 02/10/17 17:20 17:20 WBC 4.11 10^3/uL 10^3/uL (3.80-9.50) RBC 2.27 10^6/uL L 10^6/uL (4.40-6.38) Hgb 6.2 g/dL L g/dL (13.7-17.5) Hct 18.9 % L % (40.0-51.0) MCV 83.3 fL fL (81.5-99.8) MCH 27.3 pg L pg (27.9-34.1) MCHC 32.8 g/dL g/dL (32.4-36.7) RDW 15.9 % H % (11.5-15.2) Plt Count 160 10^3/uL 10^3/uL (150-400) MPV 9.4 fL fL (8.7-11.7) Neut % (Auto) Not Reported Lymph % (Auto) Not Reported Stephenson % (Auto) Not Reported Eos % (Auto) Not Reported Baso % (Auto) Not Reported Nucleat RBC Rel Count 0.0 % % (0.0-0.2) Absolute Neuts (auto) Not Reported Absolute Lymphs (auto) Not Reported Absolute Monos (auto) Not Reported Absolute Eos (auto) Not Reported Absolute Basos (auto) Not Reported Absolute Nucleated RBC 0.00 10^3/uL 10^3/uL (0-0.01) Immature Gran % Not Reported Seg Neutrophils % 85 % % Band Neutrophils % 8 % % Lymphocytes % 1 % % Monocytes % 2 % % Metamyelocytes % 4 % % Immature Gran # Not Reported Absolute Seg Neuts 3.49 10^/uL 10^/uL (1.70-6.50) Absolute Band Neuts 0.33 10^3/uL 10^3/uL (0.00-0.70) Absolute Lymphocytes 0.04 10^3/uL L 10^3/uL (1.00-3.00) Absolute Monocytes 0.08 10^3/uL L 10^3/uL (0.30-0.80) Absolute Metamyelocyte 0.16 10^3/mL H 10^3/mL (0.00-0.00) Dohle Bodies PRESENT H Platelet Estimate ADEQUATE (ADEQ) Hypochromasia 2+ H Microcytic Cells 1+ H Elliptocytes 1+ H Schistocytes 1+ H Smear Review By Pending Sodium 128 mEq/L L mEq/L (134-144) Potassium 4.8 mEq/L mEq/L (3.5-5.2) Chloride 93 mEq/L L mEq/L (97-110) Carbon Dioxide 16 mEq/l L mEq/l (22-31) Anion Gap 19 mEq/L H mEq/L (8-16) BUN 80 mg/dL H mg/dL (7-23) Creatinine 6.7 mg/dL H mg/dL (0.7-1.3) Estimated GFR 9 Glucose 99 mg/dL mg/dL (70-100) Calcium 8.5 mg/dL mg/dL (8.5-10.4) Total Bilirubin 0.8 mg/dL mg/dL (0.1-1.4) AST 28 IU/L IU/L (17-59) ALT 35 IU/L IU/L (21-72) Alkaline Phosphatase 187 IU/L H IU/L (38-126) Total Protein 6.1 g/dL L g/dL (6.3-8.2) Albumin 2.7 g/dL L g/dL (3.5-5.0) Medications Given: Discontinued Medications Sodium Chloride (Ns) 1,000 mls @ 0 mls/hr IV ONCE ONE PRN Reason: Wide Open Stop: 02/10/17 17:31 Last Admin: 02/10/17 17:35 Dose: 1,000 mls Ondansetron HCl (Zofran) 4 mg IVP EDNOW ONE Stop: 02/10/17 17:31 Last Admin: 02/10/17 17:36 Dose: 4 mg Departure - Departure Disposition: [facility] Acute Clinical Impression: Renal failure, Dehydration Condition: Fair
[2017-02-10] MEDS ORDERED: ONDANSETRON 4 MG/2 ML VIAL ONE (17:26)
[2017-02-10] MEDS ORDERED: NS 1,000 ML IV ONE ×2 (17:30→20:13)
[2017-02-10] MEDS ORDERED: ONDANSETRON 4 MG/2 ML VIAL IVP ONE (17:30)
[2017-02-10 17:49] LABS: PLATELET COUNT 160 10^3/uL (150-400)
[2017-02-10] MEDS ORDERED: IOPAMIDOL (ISOVUE-300) 100 ML BTL ONE (19:16)
[2017-02-10] MEDS: NS 1,000 ML IV SCH (21:32)
[2017-02-10] MEDS: HEPARIN 5,000 UNIT/0.5 ML SYR SC SCH (22:30)
--- NOTE | 2017-02-10 22:45 | GHP ---
[f rep st] HISTORY AND PHYSICAL DATE OF ADMISSION: 02/10/2017 CHIEF COMPLAINT: Abdominal pain, nausea. HISTORY OF PRESENT ILLNESS: This is a 41-year-old male, who was recently admitted to the hospital wi th a new diagnosis of HIV just a couple of weeks ago. He also had AIDS. At that point, he was diagn osed with CMV retinitis, as well as disseminated MAC infection. He was also suffering from Diane e sophagitis. He was treated with a full course of fluconazole, as well as another full course of Valc yte. It does appear that his CMV viral load has come down and his retinitis is getting better. Appa rently, last week susceptibility for the MAC had come back and required a medication change with the addition of rifabutin. This had an interaction with another HIV medicine, which needed to be changed . It has been since then in the last several days that he has had increasing nausea, decreased p.o. intake. He has had also some increasing abdominal pain, and he has been taking ibuprofen for this. He had a lot dark urine that prompted him to come to see the doctor and thus, be admitted through the emergency room. He had somewhat decreased urine output. No diarrhea. No fevers or chills. He is able to eat and his esophagitis is improved. He is, however, quite weak overall and that has been wo rsening. He does admit to diffuse abdominal pain and abdominal distention. He does have a nonproduc tive cough and that seems to make his nausea and abdominal pain worse. This has not changed. REVIEW OF SYSTEMS: A 10-point review of systems was obtained. Other than stated above is negative. PAST MEDICAL HISTORY: 1. HIV/AIDS. 2. CMV retinitis. 3. Diane esophagitis. 4. Disseminated MAC. SOCIAL HISTORY: No smoking or alcohol. FAMILY HISTORY: Reviewed and noncontributory. PHYSICAL EXAM: VITAL SIGNS: Afebrile, blood pressure is 97/53, heart rate 97, oxygen saturation 97% on room air. GENERAL: Patient is well developed, no apparent distress. HEENT: Slightly icteric s clerae. Dry mucous membranes. No thrush. NECK: Supple. No thyromegaly. LUNGS: Good effort. Cl ear to auscultation bilaterally. CARDIOVASCULAR: Regular rate and rhythm. No murmurs, rubs, or gal lops. ABDOMEN: Slightly distended, soft. Mild diffuse tenderness. No rebound or guarding. EXTREM ITIES: No clubbing, cyanosis, or edema. SKIN: Without rash, dry, intact. NEUROLOGIC: Alert and o riented x3. Moving all 4 extremities equally. PSYCHIATRIC: Normal affect. LABS: White count 4, hemoglobin 6.2, which is actually fairly stable for him. Sodium 128, potassium 4.8, CO2 16, anion gap 19, BUN 80, creatinine 6.7, when he had normal creatinine prior. CT scan of the abdomen and pelvis shows significant diffuse lymphadenopathy, which is consistent with his MAC in fection. ASSESSMENT: This is a 41-year-old male, presenting with acute renal failure, in the setting of compl icated acquired immunodeficiency syndrome presentation, with multiple opportunistic infections. PLAN: 1. Acute renal failure. This could be due to the ibuprofen use and being prerenal from perhaps the medications. Unfortunately, this patient also received IV contrast for his CT scan. Nephrology has been consulted. We will continue with IV fluids after the 2 L bolus has been given. We will monitor kidney function, as well as urine output along with renal. 2. HIV/AIDS. We are holding his medication until Infectious Disease sees him. 3. CMV retinitis. We are also holding his Valcyte. 4. MAC. This was a resistant organism and required several medications. Again, we are holding medi cations until ID sees him. 5. Anemia. Iron studies seem to be more consistent with chronic disease. This is not much off his baseline. We could consider a blood transfusion at some point, although will hold off tonight. /[id number]/MODL
[2017-02-11 04:06] LABS: PLATELET COUNT 182 10^3/uL (150-400)
[2017-02-11] MEDS: ACETAMINOPHEN 325 MG TAB PO PRN ×2 (05:44→21:29)
[2017-02-11] MEDS: NS 1,000 ML IV SCH (05:44)
[2017-02-11] MEDS: HEPARIN 5,000 UNIT/0.5 ML SYR SC SCH ×3 (06:01→21:40)
[2017-02-11] MEDS: DIFLUPREDNATE OPTH EACHEYE SCH ×2 (08:28→21:40)
--- NOTE | 2017-02-11 09:22 | PCMIDPN ---
Assessment/Plan: 1. Acute kidney injury: Differential diagnosis includes proximal tubulopathy/renal failure secondary to tenofovir, ATN secondary to pre renal state/nonsteroidals, other hypersensitivity reaction secondary to medication (ethambutol nephritis seems unlikely). HIV associated nephropathy (HIVAN) seems less likely as he is not the right phenotype for this, and change in creatinine was precipitous. No present indications for dialysis. * Await input from nephrology * Discontinue Truvada (please see below regarding change in antiretrovirals) * Check serum phosphorus, and consider obtaining fractional excretion of phosphorus, which is abnormal in the setting of tenofovir toxicity. * Consider renal biopsy if he is not improving 2. AIDS: Will optimize and change his anti-retroviral therapy based on his kidney function. Maintaining control of his HIV is paramount to his survival in the setting of two active opportunistic infections. * Discontinue Truvada * Start Abacavir 300 mg twice daily,3TC 150 mg on day 1, then 50 mg daily thereafter, and continue Dolutegravir 50 mg daily. Spoke to pharmacy.3TC, ABC, and DTG should be taken together, then Abacavir again 12 hr later. I do not feel comfortable changing Dolutegravir to Raltegravir, as this regimen has been shown to fail in clinical trials in patients with a viral load greater than 100, 000. (patient's viral load was 2 million) NB for Nephrology: Dolutegravir decreases tubular secretion of creatinine, without altering glomerular filtration rate. Mean rise in creatinine over 4 weeks is 0.1-0.2. Also please note, doses of his antiretrovirals will need to be modified/adjusted based on improvement or deterioration in his renal function. Cannot give concomitant cation binders, such as Tums with Dolutegravir. 3. CMV retinitis of the right eye: Valcyte toxicity/hypersensitivity seems unlikely as the culprit for his acute kidney injury. The patient has site threatening disease. Will restart Valcyte at 450 mg Q 2 days and make Ophthalmology aware of his hospitalization. Recent CMV PCR undetectable. 4. Disseminated mycobacterium avium: Given renal failure, and the fact that all 3 drugs need to be given together, would prefer to hold azithromycin, ethambutol, and rifabutin for a few days pending improvement in kidney function. Patient likely has a very high a mycobacterial burden in the setting of profound immuno deficiency. Again, restoring his immune system with antiretrovirals is an important adjunct to his therapy, especially while MAC drugs are held. CT of the abdomen and pelvis about the same compared with a month ago. Do feel that he needs steroids presently, but he may moving forward 2/2 IRIS. 5. Prophylaxis: Patient has a history of a desquamating rash to sulfa. Will continue Mepron. Please note, Toxo IgG negative--does not need prophylaxis for this. 6. Anemia: Previous iron studies have revealed anemia of chronic disease. He may feel better with 2 U of blood. Will discuss with hospitalist. Previous parvovirus PCR negative, testosterone levels vitamin B12 and folate within normal limits. 7. History of esophageal candidiasis: No symptoms presently. No evidence of oral thrush. No need for fluconazole. 8. Cough: He is not hypoxic, and did not cough once during my interview with him. Will obtain CT scan of the chest today given profound immunosuppression.. 9. Miscellaneous: Will ask nutrition to evaluate him. Repeat a.m. cortisol. Over 60 min was spent with this patient today. 02/11/17 09:36 Subjective: Patient is well known to me. Patient diagnosed with end-stage AIDS, with a T- cell count of 0, viral load of over 2 million in mid December. He was hospitalized here briefly in mid December for a gastroenteritis. AFB culture of the sputum was positive at that time. CT scans of the chest abdomen and pelvis revealed extensive lymphadenopathy without lung parenchymal disease. He saw me in clinic shortly thereafter, and was started on 2 drug therapy for disseminated mycobacterium avium, including throw mycin 600 mg a day and ethambutol 1200 mg daily. He was also diagnosed around that time with CMV retinitis of the right eye, and recently finished induction therapy with valganciclovir 900 mg twice daily. He completed this February 04, and has been taking maintenance therapy, 900 mg daily since then. He has been followed by Dr. Jian Lau, who reported improvement in his right eye approximately 10 days ago a clinic visit. Patient was stable on 2 drug therapy for MAC, but I received susceptibility tests from [facility] on February 04 that revealed the need to add rifabutin (clarithromycin was susceptible, ethambutol was intermediate, and ethambutol and rifabutin showed susceptibility together). The patient also started antiretrovirals in the form of Descovy and Dolutegravir around the 02 of February, but because of the drug interaction with rifabutin and the new formulation of tenofovir, I had to discontinue Descovy and start Truvada. The patient tells me that he began to feel unwell perhaps 2 days into the addition of Truvada and rifabutin. He noticed dark urine over the past few days, and has been forcing himself to eat and drink. He has been taking nonsteroidals, but reports no more than 400-600 mg daily. His energy level has been deteriorating, denies fevers or shaking chills. His vision in the right eye is about the same. Patient states he aches all over, but this is more of a total body pain and not necessarily arthralgias, per se. No new rash. Spoke to the patient 3 times yesterday, recommending that he come to the hospital. When he arrived in the emergency room, his blood pressure was somewhat low, but his heart rate was normal. He was afebrile. Blood work highly abnormal, with serum creatinine of 6.7. Unfortunately, the patient received intravenous contrast before Radiology was notified. I did review his CT of the abdomen and pelvis with oral and IV contrast that essentially looks the same compared with December, with bulky abdominal adenopathy. I asked the hospitalist to hold all of his medications pending review today. Speaking with the patient today, he feels hungry and denies fevers or shaking chills. Explained him what's going on, and the fact that his MAC meds will be held, and that I am changing his anti-retroviral therapy, as controlling his HIV is his best chance of surviving this. Objective: Afebrile Vital Signs Temp Pulse Resp BP Pulse Ox 36.3 C 120 H 16 122/62 H 92 02/10/17 21:02 02/11/17 03:51 02/11/17 03:51 02/11/17 03:51 02/11/17 03:51 Laboratory Results 02/11/17 03:20 02/11/17 03:20 02/10/17 02/11/17 02/12/17 05:59 05:59 05:59 Intake Total 3150 Balance 3150 AFB blood culture February 01 positive for AFB (this does not necessarily reflect treatment failure, as treatment failure is "no clinical response and persistence of Robert bacteremia after 4-8 weeks of therapy") - Physical Exam General Appearance: no apparent distress, cachetic EENT: pharynx normal, No scleral icterus, No thrush Respiratory: other (Decreased breath sounds both bases), No wheezing Cardiac/Chest: tachycardia, systolic murmur Abdomen: soft, distended Skin: No rash Neuro/Psych: no motor/sensory deficits, oriented x 3 ICD10 Worksheet Patient Problems: Problems Problem Status Onset Dehydration Acute Renal failure Acute Anemia Acute Fever Acute Vomiting Acute
--- NOTE | 2017-02-11 10:30 | PDMN ---
Medical Necessity Medical necessity: Pt meets IP criteria per MD; est los >2 mn for eval/tx of acute renal failure, in the setting of complicated acquired immunodeficiency syndrome w/multiple opportunistic infections & anemia; admit for further workup/ monitoring, Nephrology/ID consult, med management; hx HIV/AIDS, CMV retinitis, disseminated MAC, esophageal candidiasis; per H&P & order 02/11/17
[2017-02-11] MEDS: ATOVAQUONE 750 MG/5 ML PO SCH (10:32)
--- NOTE | 2017-02-11 11:16 | ASMTCMCOM ---
CM Note CM Note Notes: 02/11/2017 Case Management Note Reviewed chart. Infectious disease prescribed medications are oral at this time. There are no PT or OT evals ordered at this time. Case Management d/c poc: anticipating independent d/c when medically stable with follow up as directed. Case Management to follow and available if needs change. Date Signed: 02/11/2017 11:15 AM Electronically Signed By:Alma Sifuentes RN
[2017-02-11] MEDS: ABACAVIR SULFATE 300 MG TAB PO SCH ×2 (12:45→21:43)
[2017-02-11] MEDS: Dolutegravir Sodium [Tivicay] 50 MG PO SCH (12:46)
--- NOTE | 2017-02-11 13:06 | HOSPPROG ---
Hospitalist Progress Note Assessment/Plan: This is a 41-year-old male with history of HIV/aids with mac and CMV retinitis presenting with: # acute kidney injury ddx: proximal tubulopathy/renal failure secondary to tenofovir, ATN secondary to pre renal state/nonsteroidals, other hypersensitivity reaction secondary to medication -nephrology consult pending # anemia (symptomatic) and likely due to chronic disease -transfuse 1 U of packed red blood cells # mild hyperkalemia -will repeat potassium after blood transfusion # HIV/aids -infectious disease consultation no reviewed and appreciated # CMV retinitis -continue care per ID # mac with abdominal pain -continue care per ID Continued patient care. Patient is high risk Subjective: Tolerating diet. Continues to have abdominal pain. Reports to be passing flatus but does have occasional diarrhea Objective: Vital Signs Temp Pulse Resp BP Pulse Ox 36.3 C 120 H 16 122/62 H 92 02/10/17 21:02 02/11/17 03:51 02/11/17 03:51 02/11/17 03:51 02/11/17 03:51 Laboratory Results 02/11/17 03:20 02/11/17 03:20 02/10/17 02/11/17 02/12/17 05:59 05:59 05:59 Intake Total 3150 Balance 3150 ICD10 Worksheet Patient Problems: Problems Problem Status Onset Anemia Acute Vomiting Acute Fever Acute Renal failure Acute Dehydration Acute
--- NOTE | 2017-02-11 13:33 | PDCONSULT ---
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 He likely has ATN in setting of volume depletion, although truvada and NSAIDs could be contributing. He could also have AIN in setting of antibiotics. Less likely caused by valganciclovir given his time course. He is nonoliguric. - Will continue IVFs, will add bicarb to IVFs. - No emergent need for HD at this time but will continue to monitor closely. - Will check C3, C4, CK. - Will check urine eos, urine sodium, urine creat, urine protein, urine phos. - Avoid hypotension and nephrotoxins. Metabolic acidosis: in setting of DEEPA, will give bicarb and continue to monitor. Hyperkalemia: K up to 5.8. - Will place on low K diet discussed with pt. - Will add bicarb to IVFs. - Will continue to monitor. Anemia: agree with transfusing 1 unit PRBCs today, would monitor K closely after transfusion. Thank you for the interesting consult. Nephrology will continue to follow, please call if you have any additional questions or concerns. H & P Stated Complaint: nausea from new medication x 4 days Time Seen by Provider: 02/10/17 16:42 HPI/ROS: HPI: Mr. Humphrey is a 41 yo M with recently diagnosed AIDS who presented with abdominal pain and nausea, found to have DEEPA. Pt was diagnosed with AIDS mid- December with Tcell count of 0 and viral load of 2 million, also with disseminated mycobacterium avium and CMV retinitis of R eye. He was started about a month ago on mycin, ethambutol and valganciclovir. He has been on maintenance therapy of valganciclovir since 02/04. He was initially stable on 2 drug therapy initially but lab tests resulted in adding rifabutin on 02/04. He was also started on antiretrovirals Descovy and dolutegravir on 02/02 but switched to Truvada for drug interactions. He states that he started to feel unwell a couple days after switching to truvada, has had worsening weakness and for three days having abdominal pain and nausea with dry heaves. He has not had a rash. He came and was found to have Cr of 6.7, was 0.8 at baseline on . He unfortunately got IV contrast for CT abdomen before realizing his kidney dysfunction. He was given NS boluses in ER and has been on NS at 125ml/ hr since. He notes that he was taking ibuprofen at home daily in the mornings for the past several days. ROS: Positive per HPI, rest of 10-point ROS negative - Personal History Current Tetanus Diphtheria and Acellular Pertussis (TDAP): Yes Tetanus Vaccine Date: 2011 - Medical/Surgical History Hx Asthma: No Hx Chronic Respiratory Disease: No Hx Diabetes: No Hx Cardiac Disease: No Hx Renal Disease: No Hx Cirrhosis: No Hx Alcoholism: No Hx HIV/AIDS: Yes Hx Splenectomy or Spleen Trauma: No Other PMH: S/P APPY @ 8YRS OF AGE; HIV+-diagnosed Dec 2016 - Family History Significant Family History: No: Renal disease - Social History Smoking Status: Former smoker - Physical Exam Exam: General: alert and oriented, no acute distress, thin Eyes: EOMI, PERRL, sclerae anicteric OP: Clear, dry mucous membranes Neck: supple, no thyromegaly CV: RRR, +2/4 radial and dorsalis pedis pulses, no peripheral edema Resp; CTA bilat, nonlabored respirations on RA Abd: Soft, distended, +TTP diffusely with no guarding or rebound or rigidity Neuro: CN II-XII grossly intact, no asterixis Psych: cooperative, blunted affect Skin: C/D/I, no rash Constitutional: Initial Vital Signs Temperature (C) 36.4 C 02/10/17 16:26 Heart Rate 89 02/10/17 16:26 Respiratory Rate 18 02/10/17 16:26 Blood Pressure 94/49 L 02/10/17 16:26 O2 Sat (%) 100 02/10/17 16:26 O2 Delivery Mode Room Air Allergies/Adverse Reactions: cephalexin monohydrate [From Keflex] Allergy (Verified 01/13/17 17:52) Other-Enter Comments Sulfa (Sulfonamide Antibiotics) Allergy (Verified 01/13/17 17:52) Other-Enter Comments Home Medications: Medication Instructions Recorded Acetaminophen [Tylenol 325mg (*)] 650 mg PO Q6 PRN 01/13/17 Atovaquone 1,500 mg PO DAILY 01/13/17 Azithromycin [Zithromax] 600 mg PO DAILY 01/13/17 Difluprednate [Durezol] 1 drop EACHEYE BID 01/13/17 Ethambutol HCl [Myambutol 400 MG 1,200 mg PO DAILY 01/13/17 (*)] valGANciclovir [ValCYTE] 900 mg PO DAILY 01/13/17 Ondansetron Odt [Zofran Odt 4 mg 4 mg PO Q4 #30 tab 01/16/17 (*)] Dolutegravir Sodium [Tivicay] 50 mg PO DAILY 02/10/17 Emtricitabine/Tenofovir [Truvada 1 tab PO DAILY8 02/10/17 200MG/300MG (*)] Ibuprofen [Motrin (*)] 200 - 400 mg PO DAILY PRN 02/10/17 Rifabutin [Mycobutin 150 mg (RX)] 300 mg PO DAILY10 02/10/17 Lab and Imaging 02/11/17 03:20 02/11/17 03:20 WBC 3.07 10^3/uL (3.80-9.50) L 02/11/17 03:20 RBC 2.35 10^6/uL (4.40-6.38) L 02/11/17 03:20 Hgb 6.3 g/dL (13.7-17.5) L 02/11/17 03:20 Hct 19.7 % (40.0-51.0) L 02/11/17 03:20 MCV 83.8 fL (81.5-99.8) 02/11/17 03:20 MCH 26.8 pg (27.9-34.1) L 02/11/17 03:20 MCHC 32.0 g/dL (32.4-36.7) L 02/11/17 03:20 RDW 15.9 % (11.5-15.2) H 02/11/17 03:20 Plt Count 182 10^3/uL (150-400) 02/11/17 03:20 MPV 9.9 fL (8.7-11.7) 02/11/17 03:20 Neut % (Auto) Not Reported 02/11/17 03:20 Lymph % (Auto) Not Reported 02/11/17 03:20 Louisa % (Auto) Not Reported 02/11/17 03:20 Eos % (Auto) Not Reported 02/11/17 03:20 Baso % (Auto) Not Reported 02/11/17 03:20 Nucleat RBC Rel Count 0.0 % (0.0-0.2) 02/11/17 03:20 Absolute Neuts (auto) Not Reported 02/11/17 03:20 Absolute Lymphs (auto) Not Reported 02/11/17 03:20 Absolute Monos (auto) Not Reported 02/11/17 03:20 Absolute Eos (auto) Not Reported 02/11/17 03:20 Absolute Basos (auto) Not Reported 02/11/17 03:20 Absolute Nucleated RBC 0.00 10^3/uL (0-0.01) 02/11/17 03:20 Immature Gran % Not Reported 02/11/17 03:20 Seg Neutrophils % 66 % 02/11/17 03:20 Band Neutrophils % 20 % 02/11/17 03:20 Lymphocytes % 5 % 02/11/17 03:20 Monocytes % 1 % 02/11/17 03:20 Basophils % 2 % 02/11/17 03:20 Metamyelocytes % 5 % 02/11/17 03:20 Myelocytes % 1 % 02/11/17 03:20 Immature Gran # Not Reported 02/11/17 03:20 Absolute Seg Neuts 2.03 10^/uL (1.70-6.50) 02/11/17 03:20 Absolute Band Neuts 0.61 10^3/uL (0.00-0.70) 02/11/17 03:20 Absolute Lymphocytes 0.15 10^3/uL (1.00-3.00) L 02/11/17 03:20 Absolute Monocytes 0.03 10^3/uL (0.30-0.80) L 02/11/17 03:20 Absolute Basophils 0.06 10^3/uL (0.02-0.10) 02/11/17 03:20 Absolute Metamyelocyte 0.15 10^3/mL (0.00-0.00) H 02/11/17 03:20 Absolute Myelocytes 0.03 10^3/mL (0.00-0.00) H 02/11/17 03:20 Toxic Granulation PRESENT H 02/11/17 03:20 Dohle Bodies PRESENT H 02/11/17 03:20 Platelet Estimate ADEQUATE (ADEQ) 02/11/17 03:20 Hypochromasia 1+ H 02/11/17 03:20 Microcytic Cells 1+ H 02/10/17 17:20 Elliptocytes 1+ H 02/11/17 03:20 Schistocytes 1+ H 02/10/17 17:20 Smear Review By Maria Del Carmen CASTAÑEDA MD 02/11/17 03:20 Sodium 131 mEq/L (134-144) L 02/11/17 03:20 Potassium 5.8 mEq/L (3.5-5.2) H 02/11/17 03:20 Chloride 101 mEq/L (97-110) 02/11/17 03:20 Carbon Dioxide 14 mEq/l (22-31) L 02/11/17 03:20 Anion Gap 16 mEq/L (8-16) 02/11/17 03:20 BUN 77 mg/dL (7-23) H 02/11/17 03:20 Creatinine 6.6 mg/dL (0.7-1.3) H 02/11/17 03:20 Estimated GFR 9 02/11/17 03:20 Glucose 92 mg/dL (70-100) 02/11/17 03:20 Calcium 7.3 mg/dL (8.5-10.4) L 02/11/17 03:20 Phosphorus 8.6 mg/dL (2.5-4.5) H 02/11/17 03:20 Total Bilirubin 0.4 mg/dL (0.1-1.4) 02/11/17 03:20 AST 32 IU/L (17-59) 02/11/17 03:20 ALT 33 IU/L (21-72) 02/11/17 03:20 Alkaline Phosphatase 169 IU/L (38-126) H 02/11/17 03:20 Total Protein 4.9 g/dL (6.3-8.2) L 02/11/17 03:20 Albumin 2.2 g/dL (3.5-5.0) L 02/11/17 03:20 Cortisol AM Sample 15.8 ug/dL (4.5-22.7) 02/11/17 03:20 Urine Color KEITH 02/10/17 22:25 Urine Appearance MODERATELY TURBID 02/10/17 22:25 Urine pH 5.0 (5.0-7.5) 02/10/17 22:25 Ur Specific [place] 1.013 (1.002-1.030) 02/10/17 22:25 Urine Protein 1+ (NEGATIVE) H 02/10/17 22:25 Urine Ketones NEGATIVE (NEGATIVE) 02/10/17 22: Urine Blood 1+ (NEGATIVE) H 02/10/17: Urine Nitrate NEGATIVE (NEGATIVE) 02/10/17: Urine Bilirubin NEGATIVE (NEGATIVE) 02/10/17 22: Urine Urobilinogen NEGATIVE EU (0.2-1.0) 02/10/17 22: Ur Leukocyte Esterase NEGATIVE (NEGATIVE) 02/10/17 22: Urine RBC 1-3 /hpf (0-3) 02/10/17 22:25 Urine WBC 15-25 /hpf (0-3) H 02/10/17 22:25 Ur Epithelial Cells TRACE /lpf (NONE-1+) 02/10/17: Amorphous Sediment PRESENT /hpf (NONE-1+) 02/10/17 22:25 Urine Mucus TRACE /lpf (NONE-1+) 02/10/17 22:25 Urine Glucose 1+ (NEGATIVE) H 02/10/17 22:25
[2017-02-11] MEDS ORDERED: NA BICARBONATE 50 MEQ/50 ML VIAL IV ONE (14:00)
[2017-02-11] MEDS: SODIUM BICARBONATE 150 MEQ in D5W 1,000 ML IV SCH (14:59)
[2017-02-11 22:59] LABS: CREATINE KINASE < 20 IU/L (0-224)
[2017-02-12 04:15] LABS: PLATELET COUNT 154 10^3/uL (150-400)
[2017-02-12] MEDS: SODIUM BICARBONATE 150 MEQ in D5W 1,000 ML IV SCH ×3 (04:28→22:18)
[2017-02-12] MEDS ORDERED: NON-FORMULARY NEW DRUG (Dolutegravir Sodium [Tivicay] 50 MG) PO SCH (09:00)
[2017-02-12] MEDS: Dolutegravir Sodium [Tivicay] 50 MG PO SCH (11:04)
[2017-02-12] MEDS: DIFLUPREDNATE OPTH EACHEYE SCH ×2 (11:05→22:00)
[2017-02-12] MEDS: ATOVAQUONE 750 MG/5 ML PO SCH (11:06)
[2017-02-12] MEDS: ABACAVIR SULFATE 300 MG TAB PO SCH ×2 (11:09→22:00)
[2017-02-12] MEDS: oxyCODONE IR 5 MG TAB PO PRN (12:00)
--- NOTE | 2017-02-12 13:22 | HOSPPROG ---
Hospitalist Progress Note Assessment/Plan: This is a 41-year-old male with history of HIV/aids with mac and CMV retinitis presenting with: # acute kidney injury ddx: proximal tubulopathy/renal failure secondary to tenofovir, ATN secondary to pre renal state/nonsteroidals, other hypersensitivity reaction secondary to medication (no change) -nephrology consult reviewed and appreciated -Cont IVF -no current indication for HD -daily labs # anemia (symptomatic) likely due to chronic disease s/p 1 unit prbc without any improvement in h/h -will continue to monitor, but will defer further transfusion since the 1unit yesterday didn't seem to help # mild hyperkalemia -will repeat potassium after blood transfusion # HIV/aids -infectious disease consultation no reviewed and appreciated # CMV retinitis -continue care per ID # mac with abdominal pain -continue care per ID -will start oxyir (risks of addiction discussed) Continued patient care. Patient is high risk Subjective: reports worsening abd pain. tolerating diet. having BMs. Good urine output. Objective: Vital Signs Temp Pulse Resp BP Pulse Ox 37.1 C 96 16 128/77 H 91 L 02/12/17 07:19 02/12/17 07:19 02/12/17 07:19 02/12/17 07:19 02/12/17 07:19 Laboratory Results 02/12/17 03:17 02/12/17 03:17 02/11/17 02/12/17 02/13/17 05:59 05:59 05:59 Intake Total 3150 2755 2000 Output Total 600 875 Balance 3150 2155 1125 - Physical Exam Constitutional: no apparent distress, appears nourished, not in pain Cardiovascular: regular rate and rhythym, no murmur, rub, or gallop Respiratory: no respiratory distress, no rales or rhonchi, clear to auscultation Gastrointestinal: normoactive bowel sounds, soft, non-tender abdomen, distension , No guarding, No rebound Neurologic: AAOx3, sensation intact bilaterally ICD10 Worksheet Patient Problems: Problems Problem Status Onset Anemia Acute Vomiting Acute Fever Acute Renal failure Acute Dehydration Acute
--- NOTE | 2017-02-12 13:42 | SOAPPROG ---
SOAP Progress Note Assessment/Plan: Assessment: 41 y/o M with a known h/o HIV with DEEPA. DEEPA: Pt has no history of renal disease, Cr up acute in the past week from 0.8 baseline on 02/01/17 to now >6, unchanged today. He likely has ATN in setting of volume depletion, although truvada and NSAIDs could be contributing. May also have UTI. He could also have AIN in setting of antibiotics. - No emergent need for HD at this time but will continue to monitor closely. - Will check C3, C4, CK. - 1g proteinuria on spot, send for culture given WBC's, Kayla high - Avoid hypotension and nephrotoxins. - check renal US - monitor UO Metabolic acidosis: in setting of DEEPA, will continue bicarb gtt today. Hyperkalemia: K improved to <5 today - Will place on low K diet discussed with pt. - Will continue to monitor. Anemia: Recommend 1U PRBCs for Hb<7. Monitor CBC. BMD: -phos >10 -start binder, renal diet HIV with multiple infections: -renally dose abx -management per ID and primary team appreciated 02/12/17 14:25 Subjective: Patient moved to first floor. Resting comfortably. Denies ROS. UO 800ml Objective: Vital Signs Temp Pulse Resp BP Pulse Ox 37.1 C 96 16 128/77 H 91 L 02/12/17 07:19 02/12/17 07:19 02/12/17 07:19 02/12/17 07:19 02/12/17 07:19 Laboratory Results 02/12/17 03:17 02/12/17 03:17 02/11/17 02/12/17 02/13/17 05:59 05:59 05:59 Intake Total 3150 2755 2000 Output Total 600 875 Balance 3150 2155 1125 Physical Exam - Physical Exam General Appearance: WD/WN, alert, no apparent distress EENT: PERRL/EOMI, pharynx normal Neck: non-tender, full range of motion, supple Respiratory: lungs clear, normal breath sounds Cardiac/Chest: normal peripheral pulses, regular rate, rhythm Abdomen: normal bowel sounds, non-tender, soft Skin: normal color, warm/dry Extremities: normal range of motion, non-tender Neuro/Psych: no motor/sensory deficits, alert, normal mood/affect, oriented x 3 ICD10 Worksheet Patient Problems: Problems Problem Status Onset Dehydration Acute Renal failure Acute Anemia Acute Fever Acute Vomiting Acute
--- NOTE | 2017-02-12 15:56 | PCMIDPN ---
Assessment/Plan: Assessment/Plan: 1. AIDS: - CD4= 0 -Recently started on HAARt therapy and changed yesterday to Abacavir, 3TC, Dolutegravir- -Reviewed with pharmacy dosing. no real improvement in renal fx today -Continue with therapy as is. 2. New RML infiltrate with new nodules: - REviewed CT Chest images - Etiology uncertain, d/d broad especially given profound immunosuppression - d/d: bacterial (HAP) given recent hospitalizations, viral, fungal (aspergillus , histo, coccidio, crypto, blasto), PCP, related to MAC, KS, malignancy, nocardia, etc -Not much resp sx, but also again profoundly immunosuppressed -REcommend Bronchoscopy to obtain samples and to further evaluate. Will consult pulmonary. Spoke and discussed case with Dr. Atkinson. - Will order: s. crypto, coccidio, histo urine Ag, blasto, s. galactomannan, legionella U Ag, -Send BAL: for c & S, fungal cx, AFB, PCP , nocardia stain, cytology, viral pcr , -Reviewed plan with patient. 3. Disseminated MAC: - Was on Azithro, Etham, Rifabutin. Meds on HOLD for now 4. CMV Retinitis: - s/p induction therapy x 21 d with Valcyte, now on maintainance Valcyte renally dosed. - Ophtho aware of admit, per Dr. Hartman's noted 5. Prophylaxis: - Sulfa allergy. Has been on Mepron for this reason. Continue Meds abacavir 300mg q12- 3TC 50mg daily Dolutegravir 50mg daily Valcyte 450mg q48 atovaquone 1500mg daily Subjective: Afebrile. feels thirsty all the time. drinking fluids, and trying to take in solids. having some nausea but not as bad as before. intermittent abd pain ongoing. having loose stools since yesterday. denies feeling sob. intermittent cough with occasional sputum production. denies any blood in the sputum. Some increase in cough over past week per girlfriend who is at bedside. Per patient, she is fully aware of patient's diagnosis. Right eye decrease in vision is stable. feet swelling since yesterday. Objective: Vital Signs Temp Pulse Resp BP Pulse Ox 36.4 C 103 H 17 104/68 93 02/12/17 14:16 12/30/17 14:16 02/12/17 14:16 02/12/17 14:16 02/12/17 14:16 Laboratory Results 02/12/17 03:17 02/12/17 03:17 02/11/17 02/12/17 02/13/17 05:59 05:59 05:59 Intake Total 3150 2755 2000 Output Total 600 875 Balance 3150 2155 1125 - Physical Exam General Appearance: alert, no apparent distress, other EENT: No thrush Respiratory: coarse breath sounds (bilaterally right > left) Cardiac/Chest: regular rate, rhythm Extremities: swelling (bilateral feet) Abdomen: normal bowel sounds, soft, distended (mild), tender (in epigastric and left and right areas. no rebound) Skin: other (eczema) - Time Spent With Patient Time Spent with Patient: greater than 35 minutes Time Spent with Patient: Greater than 35 minutes spent on this patients care, greater than 50% of time spent counseling, educating, and coordinating care regarding the above mentioned plan. ICD10 Worksheet Patient Problems: Problems Problem Status Onset Dehydration Acute Renal failure Acute Anemia Acute Fever Acute Vomiting Acute
[2017-02-12] MEDS: SEVELAMER HCL 800 MG TAB PO SCH (18:07)
[2017-02-12] MEDS: PROMETHAZINE HCL 25 MG/ML INJ IVP PRN (20:46)
--- NOTE | 2017-02-12 22:38 | GCON ---
[f rep st] CONSULTATION PULMONARY CONSULTATION DATE OF CONSULTATION: 02/12/2017 HISTORY OF PRESENT ILLNESS: I was asked to see this patient for an abnormal CT scan. He is a 41-yea r-old male who was diagnosed with HIV in December of this year, and currently has a CD4 count of 0, a nd a viral load of greater than 2 million. When he was diagnosed with HIV, he had CMV retinitis at t he time, and was diagnosed with disseminated Mycobacterium avium complex, as well as thrush. He star mauricio 2-drug therapy at that time, but sensitivities required addition of rifabutin, and he subsequentl y has developed acute kidney injury. He was admitted to the hospital 2 days ago and had very minimal , if any, respiratory complaints, save for a nonproductive cough, but no shortness of breath. His wo rkup included a CT scan of his chest, which has revealed new infiltrates in the right middle lobe wit h some consolidation. He had some adenopathy that was seen previously, but this has clearly been pro gressive, though he has been afebrile during this hospitalization. He denies any hemoptysis at this time, and has not had any recent pneumonias. His anti-retroviral therapy had to be discontinued chelsie use of the renal failure, as has the MAC therapy. In addition, he was treated with fluconazole for h is Diane esophagitis and denies thrush at this time. REVIEW OF SYSTEMS: Otherwise, negative other than fatigue. PAST MEDICAL HISTORY: 1. HIV as described above. 2. CMV retinitis. 3. Disseminated MAC. 4. Diane esophagitis. 5. Anemia of chronic disease. 6. Gastroenteritis back in December, and currently acute kidney injury. PAST SURGICAL HISTORY: None. ALLERGIES: None. CURRENT MEDICATIONS: Tylenol, atovaquone, Epivir, Zofran, Phenergan, bicarb drip, and Valcyte. PHYSICAL EXAMINATION: VITAL SIGNS: T-max is 37.1, blood pressure 104/58, heart rate 91, respiration s 17, oxygen saturation 94% on room air. GENERAL: He was mildly somnolent, but oriented x3, and abl e to speak in full sentences without using accessory muscles for breathing. HEENT: Pupils equally r ound and reactive to light. Nonicteric and noninjected. Mucous membranes are moist without evidence of thrush. NECK: Supple without obvious adenopathy. Breath sounds are clear to auscultation bilat erally without wheezes, rubs or rales. HEART: Regular rate and rhythm without obvious murmur. ABDO MEN: Soft, nontender, nondistended without hepatosplenomegaly. EXTREMITIES: No clubbing, cyanosis, or edema. NEUROLOGIC: Nonfocal, including cranial nerves. SKIN: Warm and dry without evidence of obvious rash. LABORATORY DATA: CT scan as described above. His white count is 2.8, hematocrit is 19, and platelet s of 154. Sodium is 130, potassium 4.8, chloride 96, bicarb 17, BUN 82, creatinine 6.8, phos of 10, albumin of 2.0. No cultures are pending at this time. ASSESSMENT AND PLAN: Abnormal CT scan in a patient with a severely compromised immune system. I agr ee with bronchoscopy at this time. I will plan for a BAL in the right middle lobe to be done tomorro w. He should be n.p.o. after midnight. The risks and benefits of the procedure were explained in de tail to the patient at the bedside. We will have him sign a consent tomorrow morning. /[id number]/MODL
[2017-02-13] MEDS: oxyCODONE IR 5 MG TAB PO PRN ×4 (01:04→20:12)
[2017-02-13] MEDS: ONDANSETRON DISINTEGRATING 4 MG TAB PO PRN ×2 (05:57→10:42)
[2017-02-13] MEDS: SODIUM BICARBONATE 150 MEQ in D5W 1,000 ML IV SCH (05:57)
[2017-02-13] MEDS: Dolutegravir Sodium [Tivicay] 50 MG PO SCH (09:22)
[2017-02-13] MEDS: DIFLUPREDNATE OPTH EACHEYE SCH ×2 (09:23→20:09)
[2017-02-13] MEDS: SEVELAMER HCL 800 MG TAB PO SCH ×3 (09:25→18:28)
[2017-02-13] MEDS: ATOVAQUONE 750 MG/5 ML PO SCH (09:26)
[2017-02-13] MEDS: ABACAVIR SULFATE 300 MG TAB PO SCH ×2 (09:41→20:10)
--- NOTE | 2017-02-13 10:12 | SOAPPROG ---
SOAP Progress Note Assessment/Plan: Assessment: 41 y/o M with a known h/o HIV with DEEPA. Etiology of DEEPA most likely ATN, however, NSAIDs and Truvada may have contributed. In addition, patient has nearly 2g of proteinuria on spot with CD4 count of 0 and multiple infections therefore a GN process cannot be ruled out. DEEPA: - No h/o renal disease Cr down to 6.4mg/dL today - No emergent need for HD at this time but will continue to monitor closely. - Awaiting complements, may need to consider biopsy if things not improving in the next couple of days - Renal US no hydro or PVR - Avoid hypotension and nephrotoxins. - send urine culture Metabolic acidosis: Improved on bicarb gtt to 26. Will hold today. Hyponatremia: Worsening, most likely hypervolemic. Will fluid restrict patient and monitor. Repeat BMP tonight. Hyperkalemia: K improved to <5 today - Will place on low K diet discussed with pt. - Will continue to monitor. Anemia: Recommend 1U PRBCs for Hb<7. Monitor CBC. BMD: -phos >10 -start binder, renal diet HIV with multiple infections: -CT shows mass -multiple cultures sent, ID following -renally dose abx -off HAART 02/13/17 10:19 Subjective: Patient has been thirsty. Drank >2L yesterday. Objective: Vital Signs Temp Pulse Resp BP Pulse Ox 36.6 C 95 17 117/85 H 92 02/13/17 08:44 02/13/17 08:44 02/13/17 08:44 02/13/17 08:44 02/13/17 08:44 Laboratory Results 02/12/17 03:17 02/13/17 05:10 02/12/17 02/13/17 02/14/17 05:59 05:59 05:59 Intake Total 2755 2350 Output Total 600 1695 Balance 2155 655 Physical Exam - Physical Exam General Appearance: WD/WN, alert, no apparent distress EENT: PERRL/EOMI, normal ENT inspection, TMs normal Neck: non-tender, full range of motion, supple Respiratory: chest non-tender, decreased breath sounds Cardiac/Chest: normal peripheral pulses, regular rate, rhythm Abdomen: normal bowel sounds, non-tender, soft Skin: normal color, warm/dry, cyanosis Extremities: normal range of motion, non-tender Neuro/Psych: no motor/sensory deficits, alert, normal mood/affect, oriented x 3 ICD10 Worksheet Patient Problems: Problems Problem Status Onset Dehydration Acute Renal failure Acute Anemia Acute Fever Acute Vomiting Acute
[2017-02-13] MEDS ORDERED: MIDAZOLAM 2 MG/2 ML VIAL ONE (10:58)
[2017-02-13] MEDS ORDERED: LIDOCAINE 1% 300 MG/30 ML SDV ONE (10:59)
[2017-02-13] MEDS ORDERED: fentaNYL 100 MCG/2 ML INJ ONE (10:59)
[2017-02-13] MEDS ORDERED: LIDOCAINE 2% JELLY 5 ML TUBE ONE (11:00)
[2017-02-13] MEDS ORDERED: EPINEPHrine 1 MG/10 ML SYR IVP ONE (11:00)
[2017-02-13] MEDS ORDERED: ALBUTEROL 3 ML DEYVIAL ONE (11:07)
--- NOTE | 2017-02-13 13:31 | PCMIDPN ---
Assessment/Plan: Assessment/Plan: 1. AIDS: - CD4= 0 -Recently started on HAARt therapy and changed to Abacavir, 3TC, Dolutegravir- -Reviewed with pharmacy dosing. no real improvement in renal fx today -Continue with therapy as is. 2. New RML infiltrate with new nodules: - Reviewed CT Chest images - Etiology uncertain, d/d broad especially given profound immunosuppression - d/d: bacterial (HAP) given recent hospitalizations, viral, fungal (aspergillus , histo, coccidio, crypto, blasto), PCP, related to MAC, KS, malignancy, nocardia, etc -Not much resp sx, but also again profoundly immunosuppressed -s/p bronch. BAL findings: clear,no blood. - Pending: crypto, coccidio, histo urine Ag, blasto, s. galactomannan, legionella U Ag, -Send BAL: for c & S, fungal cx, AFB, PCP , nocardia stain, cytology, viral pcr , -Reviewed plan with patient. 3. Disseminated MAC: - Was on Azithro, Etham, Rifabutin. Meds on HOLD for now 4. CMV Retinitis: - s/p induction therapy x 21 d with Valcyte, now on maintainance Valcyte renally dosed. - Ophtho aware of admit, per Dr. Hartman's noted 5. Prophylaxis: - Sulfa allergy. Has been on Mepron for this. Continue 6. Acute Renal insufficiency: - uncertain etiology. ? related to Truvada, vs nsaids/dehyration, vs other. - minimal improvment in creatinine - Nephrology following. Appreciate. Meds abacavir 300mg q12- 3TC 50mg daily Dolutegravir 50mg daily Valcyte 450mg q48 atovaquone 1500mg daily Subjective: Afebrile. s/p bronch. pt with some cough and sputum production after procedure which has settled down now. denies sob. intermittent abd pain. Objective: Vital Signs Temp Pulse Resp BP Pulse Ox 36.8 C 105 H 18 116/74 96 02/13/17 12:43 02/13/17 12:43 02/13/17 12:43 02/13/17 12:43 02/13/17 12:43 Laboratory Results 02/12/17 03:17 02/13/17 05:10 02/12/17 02/13/17 02/14/17 05:59 05:59 05:59 Intake Total 1530 4543 Output Total 600 1695 Balance 2155 655 - Physical Exam General Appearance: alert, no apparent distress Respiratory: coarse breath sounds (mild) Cardiac/Chest: tachycardia Extremities: No swelling Abdomen: normal bowel sounds, soft, tender (LLQ, epigastric region), No distended Skin: No erythema ICD10 Worksheet Patient Problems: Problems Problem Status Onset Dehydration Acute Renal failure Acute Anemia Acute Fever Acute Vomiting Acute
--- NOTE | 2017-02-13 13:58 | HOSPPROG ---
Hospitalist Progress Note Assessment/Plan: This is a 41-year-old male with history of HIV/aids with MAC and CMV retinitis presenting with: # Acute kidney injury- proximal tubulopathy/renal failure secondary to tenofovir vs ATN 2/2 hypovolemia and NSAIDs-no current indication for HD renal US (reviewed) without hydronephrosis -creatinine 6.9-> 6.4 this am- oxygen saturations 95% on 2L -nephrology following- considering biopsy if doesn't cont to improve -Cont IVF # New RML infiltrate - CT chest (personally reviewed and interpreted) new RML pneumonia with nodules and increased mediastinal LAD with Bilateral effusions patient severely immunocompromised - bronchoscopy today - cont broad specturm tx - serologies pending for crypto, coccidio, histo urine Ag, blasto, s. galactomannan, legionella U Ag # AIDS - infectious disease managing tx - cont new HAARt regimen per ID - following renal function closely # Disseminated MAC - currently holding meds per ID # CMV retinitis - s/p induction therapy x 21 d with Valcyte - cont Valcyte renally dosed. - Ophtho aware of admit # Hyponatremia - suspect hypervolemic in setting of renal disease - cont to monitor # Hyperkalemia 2/2 DEEPA - cont Renagel TID - potassium 4.4 this am # anemia (symptomatic) likely due to chronic disease s/p 1 unit prbc without any improvement in h/h -will continue to monitor, but will defer further transfusion since the 1unit yesterday didn't seem to help # mild hyperkalemia -will repeat potassium after blood transfusion # prophylaxis - holding lovenox for bronchoscopy today # diet- NPO for bronchoscopy # dispo- > 2MN as remains acutely very ill requiring additional diagnostics and IV meds I have discussed the case with RN- holding lovenox for bronchoscopy today Subjective: feels tired Objective: Vital Signs Temp Pulse Resp BP Pulse Ox 36.8 C 105 H 18 116/74 96 02/13/17 12:43 02/13/17 12:43 02/13/17 12:43 02/13/17 12:43 02/13/17 12:43 Laboratory Results 02/12/17 03:17 02/13/17 05:10 02/12/17 02/13/17 02/14/17 05:59 05:59 05:59 Intake Total 1199 9951 Output Total 324 6445 Balance 2155 655 - Physical Exam Constitutional: appears nourished Eyes: anicteric sclera Ears, Nose, Mouth, Throat: moist mucous membranes Cardiovascular: regular rate and rhythym Respiratory: no respiratory distress, inspiratory crackles Gastrointestinal: normoactive bowel sounds Genitourinary: no bladder fullness Skin: warm, normal color Musculoskeletal: No asymmetric calves Neurologic: AAOx3 Psychiatric: No agitated Lymph, Heme, Immunologic: no cervical LAD ICD10 Worksheet Patient Problems: Problems Problem Status Onset Dehydration Acute Renal failure Acute Anemia Acute Fever Acute Vomiting Acute
[2017-02-14] MEDS: ACETAMINOPHEN 325 MG TAB PO PRN ×2 (05:25→17:56)
[2017-02-14] MEDS: ONDANSETRON 4 MG/2 ML VIAL IVP PRN (05:26)
[2017-02-14] MEDS: oxyCODONE IR 5 MG TAB PO PRN (05:26)
[2017-02-14 05:29] LABS: PLATELET COUNT 135 10^3/uL (150-400)
[2017-02-14] MEDS: SEVELAMER HCL 800 MG TAB PO SCH ×3 (10:04→17:52)
[2017-02-14] MEDS: ATOVAQUONE 750 MG/5 ML PO SCH (10:05)
[2017-02-14] MEDS: Dolutegravir Sodium [Tivicay] 50 MG PO SCH (10:05)
[2017-02-14] MEDS: ABACAVIR SULFATE 300 MG TAB PO SCH ×2 (10:06→22:16)
[2017-02-14] MEDS: DIFLUPREDNATE OPTH EACHEYE SCH ×2 (10:06→22:16)
--- NOTE | 2017-02-14 11:16 | SOAPPROG ---
SOAP Progress Note Assessment/Plan: Assessment: 41 y/o M with a known h/o HIV with DEEPA, non-oliguric. Etiology of DEEPA most likely ATN, however, NSAIDs and Truvada may have contributed. In addition, patient has nearly 2g of proteinuria on spot with CD4 count of 0 and multiple infections therefore a GN process cannot be ruled out, however does not appear to have nephrotic range proteinuria indicative of HIVAN or collapsing FSGS as seen in this disease. DEEPA: - No h/o renal disease Cr stable at 6.4mg/dL today - No emergent need for HD at this time but will continue to monitor closely. - Awaiting complements, may need to consider biopsy if things not improving, hold anticoagulation tonight - Renal US no hydro or PVR - Avoid hypotension and nephrotoxins. - urine culture no growth to date Metabolic acidosis: Resolved. Hyponatremia: Improved with fluid restriction, likely hypervolemic. Continue to monitor. Hyperkalemia: K improved to <5 today - Will place on low K diet discussed with pt. - Will continue to monitor. Anemia: S/p 1U PRBCs for Hb<7. Monitor CBC. BMD: -phos >10 -start binder, renal diet HIV w/ CMV retinitis, disseminated MAC, and pulmonary mass R lung -bronchoscopy today -multiple cultures sent, ID following -renally dose abx -off HAART 02/14/17 12:48 Subjective: Patient having some abdominal pain this AM. Just completed bronchoscopy. Need for possible biopsy discussed. Objective: Vital Signs Temp Pulse Resp BP Pulse Ox 36.2 C 79 16 115/73 91 L 02/14/17 09:20 02/14/17 09:20 02/14/17 09:20 02/14/17 09:20 02/14/17 09:20 Microbiology 02/13/17 11:40 Gram Stain - Final Lung Right Lobe - Bronchial Washings 02/13/17 11:40 Gram Stain - Final Lung Right Lobe - Bronchial Washings Laboratory Results 02/14/17 05:03 02/14/17 05:03 02/13/17 02/14/17 02/15/17 05:59 05:59 05:59 Intake Total 2350 1800 Output Total 1695 1075 Balance 655 725 Physical Exam - Physical Exam General Appearance: WD/WN, alert, no apparent distress EENT: PERRL/EOMI, pharynx normal Neck: non-tender, full range of motion, supple Respiratory: decreased breath sounds Cardiac/Chest: regular rate, rhythm Abdomen: normal bowel sounds, soft, other (tenderness epigastric w/o guarding) Skin: normal color, warm/dry Extremities: normal range of motion, non-tender Neuro/Psych: no motor/sensory deficits, alert, normal mood/affect, oriented x 3 ICD10 Worksheet Patient Problems: Problems Problem Status Onset Dehydration Acute Renal failure Acute Anemia Acute Fever Acute Vomiting Acute
--- NOTE | 2017-02-14 11:42 | PCMIDPN ---
Assessment/Plan: # DEEPA, non-oliguric, 2gm protein. Suspect ATN but prox tubular dz secondary to TDF, NSAIDs, hypersensitivity or GN cannot be completely r/o. Also rec'd IV contrast for CT abdomen on admit. UOP 1600. Slight improvement in Cr since admit but last couple days stable --appreciate renal consult # AIDS: CD4 = 0 , ARV adjusted in light of DEEPA, Abacavir, renal dosed 3TC, and dolutegravir. abacavir& dolutegravir do not require renal adjustment --avoid cation binders such as Ca/Mg/Zn --Mepron for PCP ppx # Cough, CT showing nodules, RML infiltrate. Multiple serologies pending, bronch yesterday. Suspect MAC. O2 sat normal. --no acute indication for antimicrobials --Reviewed BAL results from yesterday # CMV retinitis of the right eye: Recent CMV PCR undetectable. --continue renal dose valcyte # Disseminated mycobacterium avium: holding meds while await recovery of kidneys # Leukopenia/anemia - today also with mild thrombocytopenia # Abdominal pain, diffuse: CT on admit showed LAD, suspect dMAC --recheck LFTs today # Nausea: multifactorial, suspect large component of DEEPA --try Phenergan for relief Meds 3TC 50mg daily dolutegravir 50mg daily Abacavir 300mg PO BID Mepron Subjective: patient c/o abdominal pain, back pain, nausea not relieved by Zofran Objective: Vital Signs Temp Pulse Resp BP Pulse Ox 36.2 C 79 16 115/73 91 L 02/14/17 09:20 02/14/17 09:20 02/14/17 09:20 02/14/17 09:20 02/14/17 09:20 Microbiology 02/13/17 11:40 Gram Stain - Final Lung Right Lobe - Bronchial Washings 02/13/17 11:40 Gram Stain - Final Lung Right Lobe - Bronchial Washings Laboratory Results 02/14/17 05:03 02/14/17 05:03 02/13/17 02/14/17 02/15/17 05:59 05:59 05:59 Intake Total 2350 1800 Output Total 1695 1075 Balance 655 725 - Physical Exam General Appearance: alert, cachetic EENT: pale conjunctiva, other (MMM), No thrush Respiratory: crackles (R base), No accessory muscle use Neck: supple Cardiac/Chest: regular rate, rhythm Extremities: pedal edema (trace ankle) Abdomen: distended, guarding, other (diffuse discomfort palpation), No peritoneal signs Skin: No rash Neuro/Psych: alert, oriented x 3, depressed affect - Time Spent With Patient Time Spent with Patient: greater than 35 minutes Time Spent with Patient: Greater than 35 minutes spent on this patients care, greater than 50% of time spent counseling, educating, and coordinating care regarding the above mentioned plan. ICD10 Worksheet Patient Problems: Problems Problem Status Onset Dehydration Acute Renal failure Acute Anemia Acute Fever Acute Vomiting Acute
[2017-02-14] MEDS: PROMETHAZINE HCL 25 MG/ML INJ IVP PRN (11:48)
--- NOTE | 2017-02-14 16:01 | PDINTPN ---
[employer] Progress Note Assessment/Plan: Assessment/plan: 41 M with HIV and disseminated MAC, CMV retinitis and new onset DEEPA thought to be related to HAART. He had minimal pulmonary symptoms but an increasing RML infiltrate so underwent BAL 02/13 without incident. No complaints today * Abnormal CT in setting of severe immunocompromise (CD4=0). Tolerated bronch well without complications. Results still pending. Will sign off, but call prn Subjective: stable post bronch 02/13 Objective: Vital Signs Temp Pulse Resp BP Pulse Ox 37.9 C 79 16 115/73 91 L 02/14/17 12:00 02/14/17 09:20 02/14/17 09:20 02/14/17 09:20 02/14/17 09:20 Microbiology 02/13/17 11:40 Mycobacterial Smear (JOSE ELIAS) - Final Lung Right Lobe - Bronchial Washings 02/13/17 11:40 Mycobacterial Smear (JOSE ELIAS) - Final Lung Right Lobe - Bronchial Washings 02/13/17 11:40 Gram Stain - Final Lung Right Lobe - Bronchial Washings 02/13/17 11:40 Gram Stain - Final Lung Right Lobe - Bronchial Washings Laboratory Results 02/14/17 05:03 02/14/17 05:03 02/13/17 02/14/17 02/15/17 05:59 05:59 05:59 Intake Total 2350 1800 Output Total 1695 1075 Balance 655 725 Physical Exam - Physical Exam General Appearance: alert, cachetic, thin EENT: PERRL/EOMI Neck: supple Respiratory: lungs clear, decreased breath sounds, No respiratory distress, No accessory muscle use Cardiac/Chest: regular rate, rhythm, No edema Abdomen: non-tender, soft, No distended Skin: normal color, warm/dry, No cyanosis Lymphatic: no adenopathy Extremities: No pedal edema Neuro/Psych: alert, normal mood/affect, oriented x 3 ICD10 Worksheet Patient Problems: Problems Problem Status Onset Dehydration Acute Renal failure Acute Anemia Acute Fever Acute Vomiting Acute
--- NOTE | 2017-02-14 16:05 | ASMTCMCOM ---
CM Note CM Note Notes: Renal consult requested today. Patient experiencing nausea and has been given phenergan for relief. CT scan showing nodules and there are multiple serologies pending. PT has discharged patient with no F/U needed. D/C plan remains independent at this time. CM available if needs arise. Date Signed: 02/14/2017 04:06 PM Electronically Signed By:Shauna Perez LCSW
[2017-02-14] MEDS ORDERED: NS 1,800 ML IV ONE (16:11)
[2017-02-14] MEDS: MEROPENEM 500 MG in NS 100 ML IV SCH (16:58)
--- NOTE | 2017-02-14 17:21 | HOSPPROG ---
Hospitalist Progress Note Assessment/Plan: This is a 41-year-old male with history of HIV/aids with MAC and CMV retinitis presenting with: # New sepsis - Fever 38.5 /tachycardia 110's -suspected source is disseminated MAC vs pulmonary - blood cultures now - IVF bolus now - starting empiric meropenem # Acute kidney injury- proximal tubulopathy/renal failure secondary to tenofovir vs ATN 2/2 hypovolemia and NSAIDs-no current indication for HD renal US (reviewed) without hydronephrosis -creatinine 6.9-> remains 6.4 this am- oxygen saturations 95% on 2L -nephrology following- considering biopsy if doesn't cont to improve -Cont IVF # New RML infiltrate - CT chest (personally reviewed and interpreted) new RML pneumonia with nodules and increased mediastinal LAD with Bilateral effusions patient severely immunocompromised - bronchoscopy cultures pending - serologies pending for crypto, coccidio, histo urine Ag, blasto, s. galactomannan, legionella U Ag - starting meropenem # AIDS - infectious disease managing tx - cont new HAARt regimen per ID - following renal function closely # Disseminated MAC - currently holding meds per ID # CMV retinitis - s/p induction therapy x 21 d with Valcyte - cont Valcyte renally dosed. - Ophtho aware of admit # Hyponatremia - suspect hypervolemic in setting of renal disease - cont to monitor # Hyperkalemia 2/2 DEEPA - cont Renagel TID - potassium 4.4 this am # anemia (symptomatic) likely due to chronic disease s/p 1 unit prbc without any improvement in h/h -will continue to monitor, but will defer further transfusion since the 1unit yesterday didn't seem to help # mild hyperkalemia -will repeat potassium after blood transfusion # prophylaxis - heparin # diet- regular # dispo- > 2MN as remains acutely very ill requiring additional diagnostics and IV meds I have discussed the case with RN- initiating sepsis protocol Subjective: feels terrible Objective: Vital Signs Temp Pulse Resp BP Pulse Ox 38.5 C H 110 H 16 131/74 H 96 02/14/17 15:56 02/14/17 15:56 02/14/17 15:56 02/14/17 15:56 02/14/17 15:58 Microbiology 02/13/17 11:40 Mycobacterial Smear (JOSE ELIAS) - Final Lung Right Lobe - Bronchial Washings 02/13/17 11:40 Mycobacterial Smear (JOSE ELIAS) - Final Lung Right Lobe - Bronchial Washings 02/13/17 11:40 Gram Stain - Final Lung Right Lobe - Bronchial Washings 02/13/17 11:40 Gram Stain - Final Lung Right Lobe - Bronchial Washings Laboratory Results 02/14/17 05:03 02/14/17 05:03 02/13/17 02/14/17 02/15/17 05:59 05:59 05:59 Intake Total 2350 1800 Output Total 1695 1075 Balance 655 725 - Physical Exam Constitutional: chronically ill appearing Eyes: anicteric sclera Ears, Nose, Mouth, Throat: dry mucous membranes Cardiovascular: regular rate and rhythym, tachycardia Respiratory: no respiratory distress, No expiratory wheeze, No inspiratory crackles Gastrointestinal: normoactive bowel sounds, tenderness, No guarding, No rebound Genitourinary: no bladder fullness Skin: warm Musculoskeletal: No asymmetric calves Neurologic: AAOx3 Psychiatric: depressed, flat affect Lymph, Heme, Immunologic: no cervical LAD ICD10 Worksheet Patient Problems: Problems Problem Status Onset Dehydration Acute Renal failure Acute Anemia Acute Fever Acute Vomiting Acute
[2017-02-14] MEDS: HEPARIN 5,000 UNIT/0.5 ML SYR SC SCH ×2 (22:15→23:03)
[2017-02-15] MEDS: oxyCODONE IR 5 MG TAB PO PRN ×3 (02:12→23:26)
[2017-02-15] MEDS: ACETAMINOPHEN 325 MG TAB PO PRN (02:19)
[2017-02-15] MEDS ORDERED: guaiFENesin/CODEINE PHOS 10 ML UDCUP PO PRN (03:32)
[2017-02-15] MEDS: HEPARIN 5,000 UNIT/0.5 ML SYR SC SCH ×3 (05:32→20:43)
[2017-02-15] MEDS: BENZONATATE 100 MG CAP PO PRN (05:32)
[2017-02-15] MEDS: PROMETHAZINE HCL 25 MG/ML INJ IVP PRN (08:49)
[2017-02-15] MEDS: SEVELAMER HCL 800 MG TAB PO SCH ×3 (08:53→19:13)
[2017-02-15] MEDS: ABACAVIR SULFATE 300 MG TAB PO SCH ×2 (08:53→20:42)
[2017-02-15] MEDS: DIFLUPREDNATE OPTH EACHEYE SCH ×2 (08:54→20:42)
[2017-02-15] MEDS: Dolutegravir Sodium [Tivicay] 50 MG PO SCH (08:54)
[2017-02-15] MEDS: ATOVAQUONE 750 MG/5 ML PO SCH (08:54)
[2017-02-15 08:58] LABS: PLATELET COUNT 105 10^3/uL (150-400)
[2017-02-15] MEDS: MEROPENEM 500 MG in NS 100 ML IV SCH (09:45)
--- NOTE | 2017-02-15 09:47 | SOAPPROG ---
SOAP Progress Note Assessment/Plan: Assessment: 1. DEEPA Suspect this was ATN. Doubt tenofovir given time course. I will check a UPEP to assess for glomerular or tubular proteinuria. He has had some pyuria. Will recheck a UA. In any case, Cr is improving, so we can afford to follow conservatively at this time. Reviewed with ID and primary service. 2. Anemia I believe he would benefit from additional transfusion. 3. Leukopenia Worsening. Likely combination of viremia and meds. Consider neupogen. Plan: 02/15/17 09:44 Subjective: Weak, cachectic Objective: Vital Signs Temp Pulse Resp BP Pulse Ox 36.3 C 85 16 116/73 96 02/15/17 09:14 02/15/17 09:14 02/15/17 09:14 02/15/17 09:14 02/15/17 09:14 Microbiology 02/13/17 11:40 Mycobacterial Smear (JOSE ELIAS) - Final Lung Right Lobe - Bronchial Washings 02/13/17 11:40 Mycobacterial Smear (JOSE ELIAS) - Final Lung Right Lobe - Bronchial Washings 02/13/17 11:40 Gram Stain - Final Lung Right Lobe - Bronchial Washings 02/13/17 11:40 Gram Stain - Final Lung Right Lobe - Bronchial Washings Laboratory Results 02/15/17 08:52 02/15/17 04:30 02/14/17 02/15/17 02/16/17 05:59 05:59 05:59 Intake Total 1800 2370 Output Total 1075 1625 Balance 725 745 Physical Exam - Physical Exam General Appearance: cachetic Respiratory: lungs clear Cardiac/Chest: regular rate, rhythm Extremities: other (1+ thigh edema) Neuro/Psych: oriented x 3 ICD10 Worksheet Patient Problems: Problems Problem Status Onset Dehydration Acute Renal failure Acute Anemia Acute Fever Acute Vomiting Acute
[2017-02-15] MEDS ORDERED: RIFABUTIN 150 MG CAP PO SCH (11:15)
[2017-02-15] MEDS: RIFABUTIN 150 MG CAP PO SCH (11:47)
--- NOTE | 2017-02-15 12:45 | PCMIDPN ---
Assessment/Plan: Assessment/Plan: 1. AIDS: - CD4= 0 -Recently started on HAARt therapy and changed yesterday to Abacavir, 3TC, Dolutegravir- -Reviewed with pharmacy dosing. mild improvement so will increase epivir dose. -Continue with therapy - N.B.: Patient likely to get started on steroid tomorrow or day after for possible component of IRIS. 2. New RML infiltrate with new nodules: - REviewed CT Chest images - d/d broad especially given profound immunosuppression - d/d: related to MAC, bacterial (HAP) given recent hospitalizations, viral, fungal (aspergillus, histo, coccidio, crypto, blasto), PCP, [place], malignancy, nocardia, etc -Pending studies: s. crypto, coccidio, histo urine Ag, blasto, s. galactomannan , legionella U Ag, -Pending BAL: , fungal cx, AFB (No AFB seen on initial smears x 2 ), PCP , nocardia stain, cytology, viral pcr, -Reviewed plan with patient. - Currently on renal dose Merem given fevers, 3. Disseminated MAC: - Restart MAC therapy today with azitho, ethambutol, rifabutin. reviewed with pharmacy. 4. CMV Retinitis: - s/p induction therapy x 21 d with Valcyte, now on maintainance Valcyte renally dosed. - Ophtho aware of admit, per Dr. Hartman's noted 5. Prophylaxis: - Sulfa allergy. Has been on Mepron for this reason. Continue. Rifabutin does interact with mepron and can lower atovaquone levels/efficacy. - close monitoring. 6. DEEPA: - creatinine slighlty improving. - appreciate nephrology's care - care coordinated. Meds abacavir 300mg q12- 3TC 50mg daily Dolutegravir 50mg daily Valcyte 450mg q48 atovaquone 1500mg daily Subjective: intermittent spiking fevers since yesterday evening with occasional chills. continues with nausea and abd pain. feels weak. urinating ok and states it is not as dark as it used to be. trying to eat. denies feeling sob. occasional cough, mostly dry. Objective: Vital Signs Temp Pulse Resp BP Pulse Ox 36.9 C 82 18 128/79 H 97 02/15/17 12:32 02/15/17 12:32 02/15/17 12:32 02/15/17 12:32 02/15/17 12:32 Microbiology 02/13/17 11:00 Urine Culture - Final Urine,Clean Catch 02/13/17 11:40 Mycobacterial Smear (JOSE ELIAS) - Final Lung Right Lobe - Bronchial Washings 02/13/17 11:40 Mycobacterial Smear (JOSE ELIAS) - Final Lung Right Lobe - Bronchial Washings 02/13/17 11:40 Gram Stain - Final Lung Right Lobe - Bronchial Washings 02/13/17 11:40 Gram Stain - Final Lung Right Lobe - Bronchial Washings Laboratory Results 02/15/17 08:52 02/15/17 04:30 02/14/17 02/15/17 02/16/17 05:59 05:59 05:59 Intake Total 1800 2370 500 Output Total 1075 1625 200 Balance 725 745 300 - Physical Exam General Appearance: alert, no apparent distress Respiratory: coarse breath sounds (mild) Cardiac/Chest: regular rate, rhythm Extremities: No swelling Abdomen: normal bowel sounds, soft, tender Skin: No erythema ICD10 Worksheet Patient Problems: Problems Problem Status Onset Dehydration Acute Renal failure Acute Anemia Acute Fever Acute Vomiting Acute
[2017-02-15] MEDS: AZITHROMYCIN 600 MG TAB PO SCH (13:37)
[2017-02-15] MEDS: ETHAMBUTOL HCL 400 MG TAB PO SCH (13:37)
--- NOTE | 2017-02-15 18:10 | HOSPPROG ---
Hospitalist Progress Note Assessment/Plan: This is a 41-year-old male with history of HIV/aids with MAC and CMV retinitis presenting with: # New sepsis - Fever 38.5 /tachycardia 110's- 38.3 early this am-suspected source is disseminated MAC vs pulmonary - blood cultures NGTD - hemodynamically stable - cont empiric meropenem - restarting MAC tx today # Acute kidney injury- based on improvement this am likely 2/2 ATN from hypovolemia and NSAIDs- no current indication for HD renal US (reviewed) without hydronephrosis -creatinine 6.9-> 5.6 this am oxygen saturations 95% on 2L -optimistic biopsy may not be necessary if creatinine continue s to improve -transfusion today # New RML infiltrate - CT chest (personally reviewed and interpreted) new RML pneumonia with nodules and increased mediastinal LAD with Bilateral effusions patient severely immunocompromised - bronchoscopy cultures pending - serologies pending for crypto, coccidio, histo urine Ag, blasto, s. galactomannan, legionella U Ag - cont meropenem # anemia severe hgb remains < 7 - transfuse 2UPRBC today # AIDS - infectious disease managing tx - cont new HAARt regimen per ID - following renal function closely # Disseminated MAC - currently holding meds per ID # CMV retinitis - s/p induction therapy x 21 d with Valcyte - cont Valcyte renally dosed. - Ophtho aware of admit # Hyponatremia - suspect hypervolemic in setting of renal disease - cont to monitor # mild hyperkalemia- cont sevelamer # prophylaxis - heparin # diet- regular # dispo- > 2MN as remains acutely very ill requiring additional diagnostics and IV meds I have discussed the case with Dr. Fisher - very optomistic his renal function will continue to improve Subjective: feels exhausted Objective: Vital Signs Temp Pulse Resp BP Pulse Ox 37.0 C 85 18 124/75 H 96 02/15/17 15:22 02/15/17 15:22 02/15/17 15:22 02/15/17 15:22 02/15/17 15:22 Microbiology 02/13/17 11:40 Gram Stain - Final Lung Right Lobe - Bronchial Washings 02/13/17 11:40 Gram Stain - Final Lung Right Lobe - Bronchial Washings 02/13/17 11:40 Mycobacterial Smear (JOSE ELIAS) - Final Lung Right Lobe - Bronchial Washings 02/13/17 11:40 Mycobacterial Smear (JOSE ELIAS) - Final Lung Right Lobe - Bronchial Washings 02/13/17 11:00 Urine Culture - Final Urine,Clean Catch Laboratory Results 02/15/17 08:52 02/15/17 04:30 02/14/17 02/15/17 02/16/17 05:59 05:59 05:59 Intake Total 1800 2370 1000 Output Total 1075 1625 600 Balance 725 745 400 - Physical Exam Constitutional: chronically ill appearing Eyes: anicteric sclera Ears, Nose, Mouth, Throat: dry mucous membranes Cardiovascular: regular rate and rhythym Respiratory: no respiratory distress Gastrointestinal: normoactive bowel sounds, tenderness, No guarding, No rebound Genitourinary: no bladder fullness Skin: warm Musculoskeletal: No asymmetric calves Neurologic: AAOx3 Psychiatric: interacting appropriately, depressed Lymph, Heme, Immunologic: no cervical LAD ICD10 Worksheet Patient Problems: Problems Problem Status Onset Dehydration Acute Renal failure Acute Anemia Acute Fever Acute Vomiting Acute
[2017-02-16 04:59] LABS: PLATELET COUNT 94 10^3/uL (150-400)
[2017-02-16] MEDS: HEPARIN 5,000 UNIT/0.5 ML SYR SC SCH ×3 (05:32→20:53)
[2017-02-16] MEDS: oxyCODONE IR 5 MG TAB PO PRN ×3 (08:03→21:03)
[2017-02-16] MEDS: SEVELAMER HCL 800 MG TAB PO SCH (08:43)
[2017-02-16] MEDS: ABACAVIR SULFATE 300 MG TAB PO SCH ×2 (08:46→20:55)
[2017-02-16] MEDS: Dolutegravir Sodium [Tivicay] 50 MG PO SCH (09:27)
[2017-02-16] MEDS: DIFLUPREDNATE OPTH EACHEYE SCH ×2 (09:27→21:05)
[2017-02-16] MEDS: MEROPENEM 500 MG in NS 100 ML IV SCH ×2 (09:28→20:56)
--- NOTE | 2017-02-16 09:48 | SOAPPROG ---
SOAP Progress Note Assessment/Plan: Assessment: DEEPA better volume depletion better AIDS poor nutrition hypokalemia Plan: continue fluids supp K continue anti-infectives per ID Await culture results 02/16/17 09:44 Subjective: up to bedside feeling better spirits OK no cp nausea or vomiting appetite not great, but he understands he needs better nutrition Objective: Vital Signs Temp Pulse Resp BP Pulse Ox 37.1 C 80 16 124/78 H 95 02/16/17 08:00 02/16/17 08:00 02/16/17 08:00 02/16/17 08:00 02/16/17 08:00 Microbiology 02/13/17 11:40 Gram Stain - Final Lung Right Lobe - Bronchial Washings 02/13/17 11:40 Gram Stain - Final Lung Right Lobe - Bronchial Washings 02/13/17 11:40 Mycobacterial Smear (JOSE ELIAS) - Final Lung Right Lobe - Bronchial Washings 02/13/17 11:40 Mycobacterial Smear (JOSE ELIAS) - Final Lung Right Lobe - Bronchial Washings 02/13/17 11:00 Urine Culture - Final Urine,Clean Catch Laboratory Results 02/16/17 04:37 02/16/17 04:37 02/15/17 02/16/17 02/17/17 05:59 05:59 05:59 Intake Total 2370 2650 Output Total 1625 1500 Balance 745 1150 Physical Exam - Physical Exam General Appearance: alert, thin Respiratory: wheezing, No rhonchi Cardiac/Chest: regular rate, rhythm, No edema, No gallop, No friction rub Abdomen: normal bowel sounds, non-tender, soft Extremities: No pedal edema Neuro/Psych: alert, oriented x 3 ICD10 Worksheet Patient Problems: Problems Problem Status Onset Dehydration Acute Renal failure Acute Anemia Acute Fever Acute Vomiting Acute
--- NOTE | 2017-02-16 09:56 | PCMIDPN ---
Assessment/Plan: 1. Acute kidney injury: Slowly improving. Etiology unclear, but suspect multifactorial (dehydration, nonsteroidals, tenofovir). Appreciate Nephrology assistance. No indication for dialysis or kidney biopsy at this point in time given improvement. 2. AIDS: Continue 3TC (100 mg daily, dose adjusted for renal insufficiency), ABC 300 mg twice daily (plan is to change to 600 mg once daily tomorrow) and Dolutegravir 50 mg daily. Viral load should be back today. Would prefer not to check his T- cell count, as this will likely continue to be extremely low in the setting of multiple opportunistic infections, and now corticosteroids. NB: pt started on Renagel, which is an iron based phosphorus binder. Because of potential drug interaction with Dolutegravir (can bind active site of the enzyme), I would like this discontinued if possible-- Nephrology is fine with this. 3. CMV retinitis of the right eye: Continue Valcyte 450 Q 48 hr. Repeat CMV PCR pending. Vision stable in the right eye. 4. 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 Azithromycin, ethambutol (dose adjusted for renal insufficiency), and rifabutin restarted yesterday. Will add prednisone today given almost certain contribution of immune reconstitution. Of note, rifabutin will metabolize up to a 3rd of the dose of prednisone. Therefore, prednisone dose will be 80 mg (would give 60 mg otherwise). Will need very slow taper. For now, will start with 80 mg for 5 days and go from there. Please see below regarding prophylaxis. 5. Prophylaxis: Patient has a history of a desquamating rash to sulfa. Continue Mepron, but will increase dose to 1500 mg in the morning and 750 in the evening given that rifabutin decreases atovaquone by 50%, and he is at high risk of other cell mediated immunity infections, such as Pneumocystis with the addition of corticosteroids. 6. Anemia: Status post receipt of 2 U of packed red blood cells. Parvovirus PCR negative, previous vitamin B12, folate and testosterone levels within normal limits. Suspect this is all related to BERRY. 7. History of esophageal candidiasis: No symptoms presently. No evidence of oral thrush. No need for fluconazole. 8. Pulmonary nodules: Multiple studies pending. Agree that this is likely all secondary to disseminated mycobacterium avium. 9. History of fever/rigors: Meropenem added on February 14. Today is day 3. Will continue for 5 days and then stop. Blood Cultures negative so far. Over 35 min was spent with this patient today. 02/16/17 09:58 Subjective: Events of the past 48 hr noted. Patient underwent bronchoscopy for new nodules noted on CT scan of the chest. Strongly suspect MAC. Creatinine down to 4.6 today! Patient is despondent about his overall condition, but is keeping food down and having regular bowel movements. Status post 2 U of packed red blood cells last evening, and fatigue is slightly better today. Meropenem started 2 days ago in the setting of new fevers and rigors. Long conversation with patient today about plan moving forward. Vision in the right eye is stable. No new rashes. Cough is about the same. Objective: Presently afebrile Dolutegravir 50 mg daily/3TC 100 mg daily/ABC 300 mg twice daily Mepron 1500 mg daily Azithromycin 600 mg daily/ethambutol 1200 mg Q Tuesday and Tuesday/ rifabutin 150 mg daily Valcyte 450 Q 48 hr Meropenem 500 mg daily day 04/18 Vital Signs Temp Pulse Resp BP Pulse Ox 37.1 C 80 16 124/78 H 95 02/16/17 08:00 02/16/17 08:00 02/16/17 08:00 02/16/17 08:00 02/16/17 08:00 Microbiology 02/13/17 11:40 Gram Stain - Final Lung Right Lobe - Bronchial Washings 02/13/17 11:40 Gram Stain - Final Lung Right Lobe - Bronchial Washings 02/13/17 11:40 Mycobacterial Smear (JOSE ELIAS) - Final Lung Right Lobe - Bronchial Washings 02/13/17 11:40 Mycobacterial Smear (JOSE ELIAS) - Final Lung Right Lobe - Bronchial Washings 02/13/17 11:00 Urine Culture - Final Urine,Clean Catch Laboratory Results 02/16/17 04:37 02/16/17 04:37 02/15/17 02/16/17 02/17/17 05:59 05:59 05:59 Intake Total 2370 2650 Output Total 1625 1500 Balance 745 1150 - Physical Exam General Appearance: no apparent distress, cachetic EENT: pharynx normal, No thrush Respiratory: other (Decreased breath sounds left base, otherwise fairly clear) Cardiac/Chest: regular rate, rhythm, systolic murmur (Faint systolic murmur) Abdomen: distended, other (Mild tenderness to palpation diffusely with no peritoneal signs.) Skin: No rash Neuro/Psych: no motor/sensory deficits, oriented x 3 ICD10 Worksheet Patient Problems: Problems Problem Status Onset Dehydration Acute Renal failure Acute Anemia Acute Fever Acute Vomiting Acute
--- NOTE | 2017-02-16 10:31 | ASMTCMCOM ---
CM Note CM Note Notes: I spoke with Dr Hartman who follows patient closely re: plans going forward. Per Dr Hartman, patient will likely remain hospitalized for another week while his kidney function recovers. He is also being treated for CMV retinitis and there is a strong suspicion for MAC infection. Patient is unemployed and living with a young girlfriend. He is followed by [facility] as an outpatient. Discharge plan continues to be home independent, but we will monitor to see if any needs arise. Date Signed: 02/16/2017 10:31 AM Electronically Signed By:Kathy Bledsoe RN
[2017-02-16] MEDS: AZITHROMYCIN 600 MG TAB PO SCH ×2 (10:48→13:04)
[2017-02-16] MEDS: ATOVAQUONE 750 MG/5 ML PO SCH (10:48)
[2017-02-16] MEDS: RIFABUTIN 150 MG CAP PO SCH (11:31)
[2017-02-16] MEDS: POTASSIUM Cl (KCl) 100 ML IV SCH ×2 (11:32→12:59)
[2017-02-16] MEDS: DRONABINOL 2.5 MG CAP PO SCH ×2 (11:54→20:55)
[2017-02-16] MEDS ORDERED: ATOVAQUONE 750 MG/5 ML PO SCH ×2 (12:00→18:00)
[2017-02-16] MEDS ORDERED: POTASSIUM CL 20 MEQ TAB PO ONE (12:06)
--- NOTE | 2017-02-16 12:10 | HOSPPROG ---
Hospitalist Progress Note Assessment/Plan: This is a 41-year-old male with history of HIV/aids with MAC and CMV retinitis presenting with: # New sepsis - Fever 38.5 /tachycardia 110's on 02/14/17- fevers resolved overnight -last 38.4 0200 02/15/17 -suspected source is disseminated MAC Blood cultures NGTD - tx for MAC restarted - currently hemodynamically stable - cont empiric meropenem x 5d currently day 3/5 - cont MAC tx # Acute kidney injury- based on improvement this am likely 2/2 ATN from hypovolemia and NSAIDs- no current indication for HD renal US (reviewed) without hydronephrosis -creatinine 6.9-> 4.6 this am oxygen saturations 95% on RA -continue supportive care # New RML infiltrate - CT chest (personally reviewed and interpreted) new RML pneumonia with nodules and increased mediastinal LAD with Bilateral effusions patient severely immunocompromised - bronchoscopy cultures reamin NGTD - serologies pending for crypto, coccidio, histo urine Ag, blasto, s. galactomannan, legionella U Ag - cont meropenem x 5d # anemia severe- hgb remains 6.5-> 9.3 s/p transfuse 2UPRBC - follow H&H # AIDS - infectious disease managing tx - cont new HAARt regimen per ID - following renal function closely # Disseminated MAC - cont meds per ID # CMV retinitis - s/p induction therapy x 21 d with Valcyte - cont Valcyte renally dosed. - Ophtho aware of admit # Hyponatremia - suspect hypervolemic in setting of renal disease - cont to monitor # hypokalemia - repleting carefully today # prophylaxis - heparin # diet- regular # dispo- > 2MN as remains acutely very ill requiring additional diagnostics and IV meds I have discussed the case with Dr. arenas - will complete total of 5d course of meropenem for Sepsis dx on 02/14/17 Subjective: Nausea and abdominal discomfort persist Objective: Vital Signs Temp Pulse Resp BP Pulse Ox 37.1 C 80 16 124/78 H 95 02/16/17 08:00 02/16/17 08:00 02/16/17 08:00 02/16/17 08:00 02/16/17 08:00 Microbiology 02/13/17 11:40 Gram Stain - Final Lung Right Lobe - Bronchial Washings 02/13/17 11:40 Gram Stain - Final Lung Right Lobe - Bronchial Washings 02/13/17 11:40 Mycobacterial Smear (JOSE ELIAS) - Final Lung Right Lobe - Bronchial Washings 02/13/17 11:40 Mycobacterial Smear (JOSE ELIAS) - Final Lung Right Lobe - Bronchial Washings 02/13/17 11:00 Urine Culture - Final Urine,Clean Catch Laboratory Results 02/16/17 04:37 02/16/17 04:37 02/15/17 02/16/17 02/17/17 05:59 05:59 05:59 Intake Total 2370 2650 Output Total 1625 1500 Balance 745 1150 - Physical Exam Constitutional: chronically ill appearing Eyes: anicteric sclera Ears, Nose, Mouth, Throat: moist mucous membranes Cardiovascular: regular rate and rhythym Respiratory: no respiratory distress, no rales or rhonchi Gastrointestinal: normoactive bowel sounds, tenderness, No guarding, No rebound Genitourinary: no bladder fullness Skin: warm Musculoskeletal: No asymmetric calves Neurologic: AAOx3 Psychiatric: interacting appropriately Lymph, Heme, Immunologic: no cervical LAD ICD10 Worksheet Patient Problems: Problems Problem Status Onset Dehydration Acute Renal failure Acute Anemia Acute Fever Acute Vomiting Acute
[2017-02-16] MEDS: predniSONE 20 MG TAB PO SCH (13:04)
[2017-02-17] MEDS: HEPARIN 5,000 UNIT/0.5 ML SYR SC SCH ×3 (05:43→20:52)
--- NOTE | 2017-02-17 08:50 | HOSPPROG ---
Hospitalist Progress Note Assessment/Plan: #Sepsis: resolved. Due to PNA #RML PNA: Day 4/5 Meropenem -Cryptococcus negative. +CMV.Coccidio pending -restarted MAC therapy #AIDs: HAART therapy #Disseminated MAC #CMV retinitis #Normocytic anemia: H/H stable after 3 units (last 02/15/17) DEEPA: likely ATN and NSAID-induced. Mild improvement today. U/S shows medical renal disease. No indication for HD #DVT ppx: SQH #Disp: cont inpatient admission with DEEPA, MAC infection. Cont abx, serial labs Subjective: no abd pain today. Walking the unit. No issues with urination Objective: Vital Signs Temp Pulse Resp BP Pulse Ox 36.3 C 71 16 126/74 H 96 02/17/17 08:18 02/17/17 08:18 02/17/17 08:18 02/17/17 08:18 02/17/17 08:18 Microbiology 02/13/17 11:40 Gram Stain - Final Lung Right Lobe - Bronchial Washings 02/13/17 11:40 Gram Stain - Final Lung Right Lobe - Bronchial Washings Laboratory Results 02/16/17 04:37 02/17/17 04:43 02/16/17 02/17/17 02/18/17 05:59 05:59 05:59 Intake Total 2650 800 Output Total 1500 850 Balance 1150 -50 - Physical Exam Constitutional: no apparent distress, other (thin) Eyes: PERRL Ears, Nose, Mouth, Throat: moist mucous membranes, hearing normal Cardiovascular: regular rate and rhythym, no murmur, rub, or gallop Respiratory: no respiratory distress, no rales or rhonchi Gastrointestinal: normoactive bowel sounds, other (mild TTP RLQ), No rebound, No distension Skin: warm Musculoskeletal: full muscle strength Neurologic: AAOx3, CN II-XII Intact Psychiatric: interacting appropriately ICD10 Worksheet Patient Problems: Problems Problem Status Onset Dehydration Acute Renal failure Acute Anemia Acute Fever Acute Vomiting Acute
[2017-02-17] MEDS: ETHAMBUTOL HCL 400 MG TAB PO SCH (09:02)
[2017-02-17] MEDS: DRONABINOL 2.5 MG CAP PO SCH ×2 (09:02→20:44)
[2017-02-17] MEDS: Dolutegravir Sodium [Tivicay] 50 MG PO SCH (09:03)
[2017-02-17] MEDS: DIFLUPREDNATE OPTH EACHEYE SCH ×2 (09:04→20:44)
--- NOTE | 2017-02-17 10:00 | SOAPPROG ---
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 BERRY poor nutrition, appetite is returning hypokalemia, better after supplement Plan: continue fluids, PO supp K as needed continue anti-infectives per ID Await culture results Follow lytes vol and renal function hopefully can liberalize diet in next day or 2 02/16/17 09:44 02/17/17 09:57 Subjective: feels better today up and in the halls yesterday, not yet today no cp sob nausea or vomiting spirits good appetite improving, hopefully can liberalize diet in next day or so Objective: Vital Signs Temp Pulse Resp BP Pulse Ox 36.3 C 71 16 126/74 H 96 02/17/17 08:18 02/17/17 08:18 02/17/17 08:18 02/17/17 08:18 02/17/17 08:18 Microbiology 02/13/17 11:40 Gram Stain - Final Lung Right Lobe - Bronchial Washings 02/13/17 11:40 Gram Stain - Final Lung Right Lobe - Bronchial Washings Laboratory Results 02/16/17 04:37 02/17/17 04:43 02/16/17 02/17/17 02/18/17 05:59 05:59 05:59 Intake Total 2650 800 Output Total 1500 850 Balance 1150 -50 Physical Exam - Physical Exam General Appearance: alert, thin Respiratory: No rhonchi, No wheezing, No pleural rub Cardiac/Chest: regular rate, rhythm, No edema, No gallop, No friction rub Abdomen: normal bowel sounds, non-tender, soft, No distended Extremities: No pedal edema Neuro/Psych: alert, normal mood/affect, oriented x 3 ICD10 Worksheet Patient Problems: Problems Problem Status Onset Dehydration Acute Renal failure Acute Anemia Acute Fever Acute Vomiting Acute
[2017-02-17] MEDS: MEROPENEM 500 MG in NS 100 ML IV SCH (10:29)
[2017-02-17] MEDS: RIFABUTIN 150 MG CAP PO SCH (10:32)
[2017-02-17] MEDS: oxyCODONE IR 5 MG TAB PO PRN ×2 (10:46→20:44)
[2017-02-17] MEDS: ATOVAQUONE 750 MG/5 ML PO SCH ×2 (12:42→18:00)
[2017-02-17] MEDS: AZITHROMYCIN 600 MG TAB PO SCH (12:42)
[2017-02-17] MEDS: predniSONE 20 MG TAB PO SCH (12:42)
[2017-02-17] MEDS ORDERED: ABACAVIR SULFATE 300 MG TAB PO SCH (18:00)
--- NOTE | 2017-02-17 18:36 | PCMIDPN ---
Assessment/Plan: Assessment/Plan: * Acute kidney injury: Creatinine stable today. Likely multifactorial etiology. Appreciate ongoing nephrology care. * AIDS: Continue anti-retroviral therapy with 3TC, Abacavir, and Dolutegravir. Viral load shows greater than 3 million copies. Suggest noncompliance with prior anti-retroviral therapy. Will continue to emphasize need for compliance with therapy. * Disseminated MAC: Continue azithromycin, ethambutol and rifabutin. Plan to continue prednisone given burden of disease; if non compliant with antiretrovirals, less clear that immune reconstitution contributing to overall presentation. * CMV retinitis of right eye: Continue Valcyte 450 mg every 48 hr adjusted for renal insufficiency. * Pulmonary nodules: Cytology shows multi nucleated cells felt to be most compatible with mycobacterial process. Likely due to MAC. CMV PCR positive on BAL sample is of unclear significance. Do not favor increasing Valcyte dosing to induction doses in the setting of ongoing renal insufficiency and PCR findings may represent colonization rather than invasive pulmonary disease. * Fever/rigors: No further fever and blood cultures remain negative. Will therefore discontinue meropenem. * OI prophylaxis: Continue Mepron as outlined by Dr. Hartman yesterday. 02/17/17 18:30 Subjective: Patient feels better today. No significant cough. Appetite improved. Feels like vision has improved slightly in right eye. Objective: Vital Signs Temp Pulse Resp BP Pulse Ox 36.1 C 62 15 118/78 97 02/17/17 16:00 02/17/17 16:00 02/17/17 16:00 02/17/17 16:00 02/17/17 16:00 Microbiology 02/13/17 11:40 Gram Stain - Final Lung Right Lobe - Bronchial Washings 02/13/17 11:40 Gram Stain - Final Lung Right Lobe - Bronchial Washings Laboratory Results 02/16/17 04:37 02/17/17 04:43 02/16/17 02/17/17 02/18/17 05:59 05:59 05:59 Intake Total 2650 800 600 Output Total 1500 850 525 Balance 1150 -50 75 Dolutegravir/3TC/ABC Mepron Azithro/EMB/Rifabutin Valcyte Meropenem #4 Prednisone #2 Laboratory Tests 01/15/17 01/15/17 02/14/17 05:10 06:20 16:37 Cortisol AM Sample 7.3 18.2 HIV-1 RNA PCR copies/ml 7821024.00 H - Physical Exam General Appearance: alert, no apparent distress EENT: No thrush Cardiac/Chest: regular rate, rhythm Extremities: No inflammation Abdomen: non-tender, No distended Skin: No embolic lesions ICD10 Worksheet Patient Problems: Problems Problem Status Onset Dehydration Acute Renal failure Acute Anemia Acute Fever Acute Vomiting Acute
[2017-02-18] MEDS: PROMETHAZINE HCL 25 MG/ML INJ IVP PRN (04:14)
[2017-02-18] MEDS: oxyCODONE IR 5 MG TAB PO PRN (04:29)
[2017-02-18 05:36] LABS: PLATELET COUNT 87 10^3/uL (150-400)
[2017-02-18] MEDS: HEPARIN 5,000 UNIT/0.5 ML SYR SC SCH ×3 (05:46→20:32)
--- NOTE | 2017-02-18 08:50 | SOAPPROG ---
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2 C 63 18 108/68 98 02/18/17 04:00 02/18/17 04:00 02/18/17 04:00 02/18/17 04:00 02/18/17 04:00 Microbiology 02/13/17 11:40 Gram Stain - Final Lung Right Lobe - Bronchial Washings 02/13/17 11:40 Gram Stain - Final Lung Right Lobe - Bronchial Washings Laboratory Results 02/18/17 05:12 02/18/17 05:12 02/17/17 02/18/17 02/19/17 05:59 05:59 05:59 Intake Total 800 840 Output Total 850 1025 Balance -50 -185 ICD10 Worksheet Patient Problems: Problems Problem Status Onset Dehydration Acute Renal failure Acute Anemia Acute Fever Acute Vomiting Acute
[2017-02-18] MEDS: ONDANSETRON DISINTEGRATING 4 MG TAB PO PRN (09:22)
[2017-02-18] MEDS: DRONABINOL 2.5 MG CAP PO SCH ×2 (09:23→20:31)
--- NOTE | 2017-02-18 09:23 | PCMIDPN ---
Assessment/Plan: 1. Acute kidney injury: Slowly improving. Etiology unclear, but suspect multifactorial (dehydration, nonsteroidals, tenofovir). Appreciate Nephrology assistance. Will adjust medications as per below given improvement in renal function. 2. AIDS: Will increase Epivir to 150 mg daily, continue ABC 600 mg daily, and Dolutegravir 50 mg daily. All medications need to be given together, with or without food. 3. CMV retinitis of the right eye: Will increase Valcyte 450 mg daily. Repeat CMV PCR. Patient is stable. 4. 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 He is on day 3/5 of prednisone 80 mg daily. Will proceed with slow taper for now, although agree that given high HIV viral load, suspect contribution from iris is minimal. Given the patient's progressive leukopenia, will ask Hematology to see him, although suspect patient will declined bone marrow biopsy. May need Neupogen. 5. Prophylaxis: Patient has a history of a desquamating rash to sulfa. Continue Mepron 1500 mg/ 750 given interaction with rifabutin. 6. Anemia: Status post receipt of 2 U of packed red blood cells. Parvovirus PCR negative, previous vitamin B12, folate and testosterone levels within normal limits. Suspect this is all related to BERRY. 7. History of esophageal candidiasis: No symptoms presently. No evidence of oral thrush. No need for fluconazole. 8. Pulmonary nodules: Likely all secondary to MAC. Agree that presence of CMV is of unclear significance. Continue side as per the above. Subjective: Patient's HIV viral load returned at over 3 million copies. Had long conversation with patient today about adherence. He is not sure what happened at home. Explained to him moving forward that he will likely need to either stay with his mother, or go back to the retirement house, where his medications were being administered to him daily. He expressed understanding and will have a conversation with his mother. Also talked to him about the fact that I will have Hematology see him given his progressive leukopenia. Vomited this morning , but tells me he thinks it was from something he ate. Denies abdominal pain,, and is starting to feel better. Happy about the fact that his kidney function is better. Denies any chest discomfort consistent with esophageal candidiasis. Objective: Dolutegravir 50 mg daily 3TC 100 mg daily ABC 600 mg daily Mepron 1500/750 Valcyte 450 Q 48 hr Azithromycin 600 daily Rifabutin 150 mg daily ETB 1200 mg 3 times weekly Afebrile Vital Signs Temp Pulse Resp BP Pulse Ox 36.2 C 63 18 108/68 98 02/18/17 04:00 02/18/17 04:00 02/18/17 04:00 02/18/17 04:00 02/18/17 04:00 Microbiology 02/13/17 11:40 Mycobacterial Smear (JOSE ELIAS) - Final Lung Right Lobe - Bronchial Washings 02/13/17 11:40 Mycobacterial Smear (JOSE ELIAS) - Final Lung Right Lobe - Bronchial Washings 02/13/17 11:40 Gram Stain - Final Lung Right Lobe - Bronchial Washings 02/13/17 11:40 Gram Stain - Final Lung Right Lobe - Bronchial Washings Laboratory Results 02/18/17 05:12 02/18/17 05:12 02/17/17 02/18/17 02/19/17 05:59 05:59 05:59 Intake Total 800 840 Output Total 850 1025 Balance -50 -185 Laboratory Tests 02/11/17 02/13/17 15:25 01:00 Coccidioides Ab (CF) Pending Urine Histoplasma Ag 0.00 Urine Legionella Ag Negative A. galactomannan Ag < 0.500 - Physical Exam General Appearance: no apparent distress, cachetic EENT: pharynx normal, No thrush Respiratory: other (Decreased breath sounds left base) Cardiac/Chest: regular rate, rhythm, No systolic murmur Abdomen: soft, distended Skin: No rash Neuro/Psych: no motor/sensory deficits, oriented x 3 ICD10 Worksheet Patient Problems: Problems Problem Status Onset Dehydration Acute Renal failure Acute Anemia Acute Fever Acute Vomiting Acute
[2017-02-18] MEDS: Dolutegravir Sodium [Tivicay] 50 MG PO SCH (09:24)
[2017-02-18] MEDS: ETHAMBUTOL HCL 400 MG TAB PO SCH (09:30)
[2017-02-18] MEDS: ABACAVIR SULFATE 300 MG TAB PO SCH (09:32)
[2017-02-18] MEDS: DIFLUPREDNATE OPTH RTEYE SCH ×2 (09:36→20:33)
[2017-02-18] MEDS: DIFLUPREDNATE OPTH EACHEYE SCH (10:54)
[2017-02-18 11:52] LABS: PLATELET COUNT 124 10^3/uL (150-400)
[2017-02-18 11:54] LABS: INR 1.04 (0.83-1.16); PROTIME(PATIENT) 13.8 SEC (12.0-15.0)
[2017-02-18] MEDS: RIFABUTIN 150 MG CAP PO SCH (12:02)
--- NOTE | 2017-02-18 12:42 | GCON ---
[f rep st] CONSULTATION NEW PATIENT CONSULTATION FOR HEMATOLOGY/MEDICAL ONCOLOGY. DATE OF CONSULTATION: 02/18/[address] Samra Hartman. REASON FOR CONSULTATION: Patient with AIDS and disseminated MAC infection, now with pancytopenia. HISTORY OF PRESENT ILLNESS: The patient is a 41-year-old male, recently admitted to the hospital wit h a new diagnosis of HIV/AIDS in December of 2016. He follows with Dr. Samra Hartman. He was admitt ed with abdominal pain and nausea. Per Dr. Hartman's noted, he has a T-cell count of 0 and a viral rosemary d initially at 2 million in mid December. He was hospitalized here briefly for gastroenteritis. AFB culture of the sputum was positive at that time. CT scan of the chest, abdomen, and pelvis revealed extensive lymphadenopathy without lung parenchymal disease. He was started on 2-drug therapy for di sseminated Mycobacterium avium. He was diagnosed around that time with CMV retinitis of the right ey e. The patient was stable on 2-drug therapy for MAC, but susceptibility testing revealed the need to add rifabutin. The patient also was started on antiretrovirals in the form of Descovy and dolutegra vir on the 02 of February, but because of drug interaction with the MAC drugs and new formulation o f tenofovir, medication changes had to be made. The patient began to feel unwell perhaps 2 days into the addition of Truvada. Energy level deteriorating. Denied fevers or shaking chills. When he arr ived to the emergency room here in late January, his blood pressure was low. Afebrile. His creatin ine was 6.7. The patient received IV contrast before Radiology was notified. The CT of the abdomen and pelvis essentially looked stable, but with bulky abdominal lymphadenopathy. The patient is follo wed here by Infectious Disease, as well as Nephrology. I have been asked to see him today for progre ssive pancytopenia. He is actively being treated for acute kidney injury, AIDS, CMV retinitis, disse minated Mycobacterium avium with progressive leukopenia and thrombocytopenia, and anemia. REVIEW OF SYSTEMS: The patient currently feels fatigued and is just annoyed by the amount of blood d raws he is getting. He denies any cough. He denies any current fevers. He denies any enlarging lym ph nodes. He does report some B symptoms about a month ago. These have somewhat resolved. Weight l oss has been about 40 pounds over the past several months with the diagnosis. He denies neurologic c hanges or skin changes. PAST MEDICAL HISTORY: 1. HIV/AIDS. 2. CMV retinitis. 3. Diane esophagitis. 4. Disseminated MAC. 5. Anemia. 6. Pulmonary nodules. FAMILY HISTORY: Noncontributory. SOCIAL HISTORY: No smoking or alcohol. He was in a senior care house. Has a questionable social histor y. MEDICATIONS: EMR has been reviewed. ALLERGIES: Have been reviewed. PHYSICAL EXAMINATION: VITAL SIGNS: Today show a blood pressure of 120/75, pulse of 74, respiration rate 18, saturating 95% on room air, and temp is 36.3. GENERAL: He is a thin, borderline cachectic gentleman, not in acute distress. HEENT: Anicteric sclerae. Oropharynx is clear. Moist m ucous membranes. NECK: Supple. No supraclavicular or cervical lymphadenopathy. HEART: Regular ra te and rhythm. LUNGS: Clear. No wheezing or rhonchi. ABDOMEN: Soft, but it is tender throughout, mostly in the flanks and epigastrium. Unable to palpate a spleen. LOWER EXTREMITIES: No significa nt edema. SKIN: No rash. No petechiae. No purpura. NEUROLOGIC: Nonfocal. LABORATORY DATA: Today shows a white blood cell count of 0.72, with an ANC of about 500, hemoglobin 10.2, hematocrit 29.6, and platelet count of 87,000. His MCV is 82.9. I will note, he has had 3 uni ts of packed red blood cells since admission. The last one was given on 02/15/2017. His differentia l earlier in admission showed some neutrophils as well as band neutrophils. He has a few monocytes, metamyelocytes, and myelocytes on his peripheral smear. His lactic acid is low. Sodium 134, BUN 40, creatinine 3, calcium 8.3, phos 4.7, albumin 2.5. LFTs not checked. IMAGING: Most recent abdominal ultrasound shows no renal obstruction. Chest CT done on 02/11/2017 s hows new right middle lobe pneumonia, new middle lobe nodules which may be infectious, new trace pleu ral effusions, and increased mediastinal lymphadenopathy. A subcarinal right retrohilar gio conglo merate is enlarged at 2.[address] abdomen that was done on 02/10/2017 showed abnormal enlarged infracarinal, mesenteric, and retroperitoneal adenopathy. The largest lymph node conglomera te was 3.8 x 3 cm in the periaortic region. His spleen was measured as normal. ASSESSMENT AND PLAN: A 41-year-old gentleman with a new diagnosis of acquired immune deficiency synd zina, relatively noncompliant with antiretrovirals, who was admitted for renal failure and has ongoin g treatment of disseminated Mycobacterium avium, as well as cytomegalovirus retinitis. He now has pr ogressive pancytopenia. 1. Pancytopenia. The differential is very broad, given the underlying infection as well as full-blo wn acquired immune deficiency syndrome. Certainly, the pancytopenia could be due to fulminant acquir ed immune deficiency syndrome or Mycobacterium avium intracellulare infection. May also be somewhat due to drug combination. Nonetheless, I did tell the patient that certainly, given his immunocomprom ised state and lymphadenopathy seen on CT chest, abdomen and pelvis, there is a small concern that he could have HIV-related lymphoma or another bone marrow disorder. I do think a bone marrow biopsy wo uld be warranted. Unfortunately, the patient is very fearful of needles. He is refusing a bone sara ow biopsy at this time, stating he needs to be completely knocked out for this procedure. Again, I t hink it is unlikely, but something we have not ruled out given the fact his AIDS has been uncontrolle d for some time. He has decided to hold up on the bone marrow biopsy, and we have chosen to check so me labs to understand the nature of the pancytopenia. See below. 2. Leukopenia, in relation to anti-retroviral therapy, underlying infection, and acquired immune def iciency syndrome. I do think he would benefit from G-CSF. His ANC right now is about 500. If he fa lls below, he is certainly at more risk for more bacterial and/or opportunistic infections. If he ag chika, I would start 480 mcg daily. So far, he is refusing. Infectious Disease has been very extensi ve with other infectious workup, with serologies, cultures, etc. 3. Anemia, status post 3 units of packed red blood cells this admission. Again, could be in relatio n to above. I am checking iron studies, although may be a little bit difficult to interpret given th e recent blood transfusions. I am also checking tests to rule out hemolytic anemia that can be assoc iated with AIDS. Parvo, B12, and folate have already been evaluated. He has no active bleeding, and his hemoglobin seems to be stable, status post transfusion, which is encouraging. 4. Thrombocytopenia. Additional labs sent. DIC panel and HIT antibody, given the fact the patient is on subcu heparin and the timing would be appropriate for HIT, although I do feel unlikely. Periph eral smear does show some schistocytes. With renal failure, I think it is important to rule out TTP, although clinically the patient continues to be stable. Again, not bleeding and does not require tr ansfusion at this time. 5. Lymphadenopathy. Somewhat worrisome. Spleen is not enlarged. Checking an LDH and uric acid. C onsider biopsy if lymph nodes do not improve. 6. 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 Per Infectious Disease. 7. Kidney failure. Creatinine is improving. Nephrology following. Unclear etiology. May benefit from renal biopsy. We will continue to follow along with this complicated patient. If the counts fail to improve, I wou ld continue to recommend a bone marrow biopsy and growth factor. The patient is somewhat reluctant t o this plan. The case will be discussed with Dr. Hartman. Over an hour was spent with the patient, mo re than 50% of the time in counseling and coordinating care. /[id number]/MODL
[2017-02-18] MEDS: AZITHROMYCIN 600 MG TAB PO SCH (14:44)
[2017-02-18] MEDS: predniSONE 20 MG TAB PO SCH (14:46)
[2017-02-18] MEDS: ATOVAQUONE 750 MG/5 ML PO SCH ×2 (14:47→18:49)
--- NOTE | 2017-02-18 16:04 | ASMTCMCOM ---
CM Note CM Note Notes: Per Dr Hartman's note today, she is recommedning that pt live with his mother at [place] or go back to a prison house where they were helping him with his medication. It is unclear when pt will be ready for DC. Date Signed: 02/18/2017 04:04 PM Electronically Signed By:Ruth Pennington LCSW
--- NOTE | 2017-02-18 18:53 | HOSPPROG ---
Hospitalist Progress Note Assessment/Plan: #Sepsis: resolved. Due to PNA #RML PNA: Day 5/5 Meropenem -Cryptococcus negative. +CMV.Coccidio pending -restarted MAC therapy #AIDs: HAART therapy. Viral load > 3million #Disseminated MAC: cont abx per ID #CMV retinitis right eye: Valcyte #Pancytopenia: ddx broad. May be acute illness, poorly-controlled AIDs. -appreciate Oncology consultation. -eval for hemolysis, BM suppression, HIT Ab -lymphadenopathy concerning -he declines BM biopsy and Neupogen -H/H stable after 3 units RBCs, no e/o active bleeding DEEPA: likely ATN and NSAID-induced. Improving daily. U/S shows medical renal disease. No indication for HD #Depressed mood: brother in hosp needing CABG. Discussed depression in chronic illnesses and suggested anti-depressant; he want to think about it #DVT ppx: [facility] #Disp: cont inpatient admission with DEEPA, MAC infection. Cont abx, serial labs Subjective: "tired of being sick and stuck with needles" Objective: Vital Signs Temp Pulse Resp BP Pulse Ox 36.3 C 68 18 125/76 H 97 02/18/17 14:52 02/18/17 14:52 02/18/17 14:52 02/18/17 14:52 02/18/17 14:52 Microbiology 02/13/17 11:40 Gram Stain - Final Lung Right Lobe - Bronchial Washings 02/13/17 11:40 Mycobacterial Smear (JOSE ELIAS) - Final Lung Right Lobe - Bronchial Washings 02/13/17 11:40 Mycobacterial Smear (JOSE ELIAS) - Final Lung Right Lobe - Bronchial Washings Laboratory Results 02/18/17 11:30 02/18/17 05:12 02/17/17 02/18/17 02/19/17 05:59 05:59 05:59 Intake Total 800 840 Output Total 850 1025 Balance -50 -185 PT 13.8 SEC (12.0-15.0) 02/18/17 11:30 INR 1.04 (0.83-1.16) 02/18/17 11:30 - Physical Exam Constitutional: other (thin) Eyes: PERRL Ears, Nose, Mouth, Throat: moist mucous membranes, hearing normal Cardiovascular: regular rate and rhythym Gastrointestinal: normoactive bowel sounds, soft, non-tender abdomen Genitourinary: no bladder fullness Skin: warm Musculoskeletal: full muscle strength Neurologic: CN II-XII Intact Psychiatric: interacting appropriately, flat affect ICD10 Worksheet Patient Problems: Problems Problem Status Onset Dehydration Acute Renal failure Acute Anemia Acute Fever Acute Vomiting Acute
[2017-02-19] MEDS: HEPARIN 5,000 UNIT/0.5 ML SYR SC SCH ×3 (04:52→21:20)
--- NOTE | 2017-02-19 08:51 | HOSPPROG ---
Hospitalist Progress Note Assessment/Plan: #Sepsis: resolved. Due to PNA #RML PNA: completed course of Meropenem #AIDs: HAART therapy. Viral load > 3million #Disseminated MAC: ethambutol, rifabutin, azithro #CMV retinitis right eye: Valcyte #Pancytopenia: ddx broad. May be acute illness, poorly-controlled AIDs. -appreciate Oncology consultation. -eval for hemolysis, BM suppression, HIT Ab -lymphadenopathy concerning -he declines BM biopsy and Neupogen -H/H stable after 3 units RBCs, no e/o active bleeding DEEPA: Cr down to 2. Likely ATN and NSAID-related. Liberalized diet U/S shows medical renal disease. No indication for HD #Depressed mood: brother in hosp needing CABG. Discussed depression in chronic illnesses and suggested anti-depressant; he want to think about it #DVT ppx: [facility] #Disp: cont inpatient admission with DEEPA, MAC infection. Cont abx, serial labs Subjective: abd pain after large breakfast this morning Objective: Vital Signs Temp Pulse Resp BP Pulse Ox 36.6 C 65 14 118/68 96 02/19/17 08:11 02/19/17 08:11 02/19/17 08:11 02/19/17 08:11 02/19/17 08:11 Microbiology 02/13/17 11:40 Gram Stain - Final Lung Right Lobe - Bronchial Washings 02/13/17 11:40 Mycobacterial Smear (JOSE ELIAS) - Final Lung Right Lobe - Bronchial Washings 02/13/17 11:40 Mycobacterial Smear (JOSE ELIAS) - Final Lung Right Lobe - Bronchial Washings Laboratory Results 02/18/17 11:30 02/19/17 04:11 02/18/17 02/19/17 02/20/17 05:59 05:59 05:59 Intake Total 840 1500 Output Total 1025 800 Balance -185 700 PT 13.8 SEC (12.0-15.0) 02/18/17 11:30 INR 1.04 (0.83-1.16) 02/18/17 11:30 - Physical Exam Constitutional: cachectic Eyes: PERRL Ears, Nose, Mouth, Throat: moist mucous membranes Cardiovascular: regular rate and rhythym Respiratory: no respiratory distress Gastrointestinal: tenderness (diffusely), distension (mild), No guarding, No rebound Genitourinary: no bladder fullness Skin: warm Musculoskeletal: full muscle strength Neurologic: AAOx3 Psychiatric: flat affect ICD10 Worksheet Patient Problems: Problems Problem Status Onset Dehydration Acute Renal failure Acute Anemia Acute Fever Acute Vomiting Acute
[2017-02-19] MEDS: RIFABUTIN 150 MG CAP PO SCH (09:39)
[2017-02-19] MEDS: DRONABINOL 2.5 MG CAP PO SCH ×2 (09:39→21:19)
[2017-02-19] MEDS: ETHAMBUTOL HCL 400 MG TAB PO SCH (09:40)
[2017-02-19] MEDS: Dolutegravir Sodium [Tivicay] 50 MG PO SCH (09:41)
[2017-02-19] MEDS: ABACAVIR SULFATE 300 MG TAB PO SCH (09:41)
[2017-02-19] MEDS: DIFLUPREDNATE OPTH RTEYE SCH ×2 (09:42→21:19)
--- NOTE | 2017-02-19 13:00 | SOAPPROG ---
SOAP Progress Note Assessment/Plan: E&M Pancytopenia * Pancytopenia: multiple potential causes including medication, AIDS, Mycobacterium. Concerns about possible lymphoproliferative process with lymphadenopathy. Multiple blood tests pending. BM Bx recommended but he is very reluctant. If he agrees, may have to do it with conscious sedation; perhaps work through IR? Will follow up on outstanding labs. No need for transfusion today. * Acute kidney injury: Probably multifactorial; seems to be slowly improving * AIDS: Followed by ID. On Epivir and Dolutegravir. 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 On ethambutol, rifabutin, and azithromycin. On 5 day course of prednisone which could interfere with a lymphoma evaluation. Subjective: Doing about the same without new complaints. Anxious about the idea of a bone marrow biopsy. Objective: Vital Signs Temp Pulse Resp BP Pulse Ox 36.6 C 65 14 118/68 96 02/19/17 08:11 02/19/17 08:11 02/19/17 08:11 02/19/17 08:11 02/19/17 08:11 Microbiology 02/13/17 11:40 Gram Stain - Final Lung Right Lobe - Bronchial Washings 02/13/17 11:40 Mycobacterial Smear (JOSE ELIAS) - Final Lung Right Lobe - Bronchial Washings 02/13/17 11:40 Mycobacterial Smear (JOSE ELIAS) - Final Lung Right Lobe - Bronchial Washings Laboratory Results 02/18/17 11:30 02/19/17 04:11 02/18/17 02/19/17 02/20/17 05:59 05:59 05:59 Intake Total 840 1500 Output Total 1025 800 Balance -185 700 PT 13.8 SEC (12.0-15.0) 02/18/17 11:30 INR 1.04 (0.83-1.16) 02/18/17 11:30 Laboratory Tests 02/16/17 02/17/17 02/18/17 04:37 04:43 05:12 WBC 1.27 L Hgb 9.3 L Plt Count 94 L Absolute Seg Neuts 1.18 L Corrected Retic Count Creatinine 3.8 H 3.0 H Uric Acid Iron Saturation Ferritin Total Bilirubin Lactate Dehydrogenase 01/05/18 01/05/18 01/05/18 05:12 11:30 11:30 WBC 0.72 L* Hgb 10.2 L Plt Count 87 L Absolute Seg Neuts 0.53 L Corrected Retic Count < 0.4 L Creatinine Uric Acid 4.7 Iron Saturation 72 H Ferritin 1330.0 H Total Bilirubin 0.3 Lactate Dehydrogenase 398 02/19/17 04:11 WBC Hgb Plt Count Absolute Seg Neuts Corrected Retic Count Creatinine 2.4 H Uric Acid Iron Saturation Ferritin Total Bilirubin Lactate Dehydrogenase CT chest without contrast, 02/11/2017 Impression: 1. New right middle lobe pneumonia. 2. New right middle lobe nodules which may be infectious. 3. New trace pleural effusions bilaterally. 4. Increased mediastinal lymphadenopathy. 5. Persistent nephrograms in the visualized upper poles of the kidneys bilaterally. This suggests underlying renal dysfunction. 6. Additional findings, as above. Dictated By: Prashant Allison MD CT Scan of the Abdomen and Pelvis (With Contrast) at 1929 hours Impression: 1. Abnormally enlarged infracarinal, mesenteric, and retroperitoneal adenopathy , with a differential diagnosis of HIV/CMV adenopathy, inflammatory/infectious adenopathy , or lymphoma. 2. No bowel obstruction, colitis, inflammatory bowel disease, or focal fluid collection/abscess. 3. Gastroesophageal reflux and small hiatal hernia. Findings and recommendations given to Hima Lopes M.D., at 2000 hours, on February 10, 2017. Dr. Lopes was notified that the patient received intravenous contrast. Final report concurs with initial preliminary interpretation. E:amm Dictated By: Moises Seay Physical Exam - Physical Exam General Appearance: no apparent distress Respiratory: lungs clear Cardiac/Chest: regular rate, rhythm Lymphatic: no adenopathy ICD10 Worksheet Patient Problems: Problems Problem Status Onset Dehydration Acute Renal failure Acute Anemia Acute Fever Acute Vomiting Acute
[2017-02-19] MEDS: ATOVAQUONE 750 MG/5 ML PO SCH ×2 (13:07→18:18)
[2017-02-19] MEDS: AZITHROMYCIN 600 MG TAB PO SCH (13:07)
[2017-02-19] MEDS: predniSONE 20 MG TAB PO SCH (13:07)
--- NOTE | 2017-02-19 13:12 | SOAPPROG ---
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 BERRY poor nutrition, appetite is returning, had some nausea and vomiting yesterday, none today hypokalemia, better Plan: continue fluids, PO expand diet to regular continue anti-infectives per ID Await culture results Follow lytes vol and renal function 02/16/17 09:44 02/17/17 09:57 02/18/17 08:46 02/19/17 13:09 Subjective: a little more energy today appetite improving up and aroud today no cp sob nausea or vomiting spirits good Objective: Vital Signs Temp Pulse Resp BP Pulse Ox 36.6 C 65 14 118/68 96 02/19/17 08:11 02/19/17 08:11 02/19/17 08:11 02/19/17 08:11 02/19/17 08:11 Microbiology 02/13/17 11:40 Gram Stain - Final Lung Right Lobe - Bronchial Washings 02/13/17 11:40 Mycobacterial Smear (JOSE ELIAS) - Final Lung Right Lobe - Bronchial Washings 02/13/17 11:40 Mycobacterial Smear (JOSE ELIAS) - Final Lung Right Lobe - Bronchial Washings Laboratory Results 02/18/17 11:30 02/19/17 04:11 02/18/17 02/19/17 02/20/17 05:59 05:59 05:59 Intake Total 840 1500 Output Total 1025 800 Balance -185 700 PT 13.8 SEC (12.0-15.0) 02/18/17 11:30 INR 1.04 (0.83-1.16) 02/18/17 11:30 Physical Exam - Physical Exam General Appearance: alert, thin Respiratory: No rhonchi, No wheezing Cardiac/Chest: regular rate, rhythm, No edema, No friction rub Abdomen: normal bowel sounds, non-tender, soft Extremities: No swelling Neuro/Psych: alert, normal mood/affect, oriented x 3 ICD10 Worksheet Patient Problems: Problems Problem Status Onset Dehydration Acute Renal failure Acute Anemia Acute Fever Acute Vomiting Acute
--- NOTE | 2017-02-19 14:17 | PCMIDPN ---
Assessment/Plan: Assessment/Plan: * Acute kidney injury: Creatinine improved. Continue to follow with you. * AIDS: Continue anti-retroviral therapy with 3TC, Abacavir, and Dolutegravir. * Disseminated MAC: Continue azithromycin, ethambutol and rifabutin. Continue dose prednisone with goal of decreasing inflammatory response to therapy. Adjust medications as renal function improves. * CMV retinitis of right eye: Continue Valcyte 450 mg daily. * Pulmonary nodules: Cytology shows multi nucleated cells felt to be most compatible with mycobacterial process. Likely due to MAC. CMV PCR positive on BAL sample is of unclear significance. Do not favor increasing Valcyte dosing to induction doses in the setting of ongoing renal insufficiency and PCR findings may represent colonization rather than invasive pulmonary disease. * OI prophylaxis: Continue Mepron. * Pancytopenia: Appreciate Oncology evaluation. Patient currently refusing bone marrow biopsy and Neupogen. Encouraged him to continue to think about moving forward with Neupogen to stimulate white blood cell production. 02/17/17 18:30 02/19/17 14:09 Subjective: Overall feels better. Able to eat large breakfast this a.m.. Remains opposed to bone marrow biopsy and use of G-CSF. Objective: Vital Signs Temp Pulse Resp BP Pulse Ox 36.6 C 65 14 118/68 96 02/19/17 08:11 02/19/17 08:11 02/19/17 08:11 02/19/17 08:11 02/19/17 08:11 Microbiology 02/13/17 11:40 Gram Stain - Final Lung Right Lobe - Bronchial Washings 02/13/17 11:40 Mycobacterial Smear (JOSE ELIAS) - Final Lung Right Lobe - Bronchial Washings 02/13/17 11:40 Mycobacterial Smear (JOSE ELIAS) - Final Lung Right Lobe - Bronchial Washings Laboratory Results 02/18/17 11:30 02/19/17 04:11 02/18/17 02/19/17 02/20/17 05:59 05:59 05:59 Intake Total 840 1500 Output Total 1025 800 Balance -185 700 3TC/Abacavir/Dolutegravir Mepron prophy Azithro/Rifabutin/EMB Valganciclovir daily - Physical Exam General Appearance: alert, no apparent distress EENT: No scleral icterus, No thrush Respiratory: lungs clear, No respiratory distress Cardiac/Chest: regular rate, rhythm, systolic murmur Abdomen: distended (Mild), tender (Mild) ICD10 Worksheet Patient Problems: Problems Problem Status Onset Dehydration Acute Renal failure Acute Anemia Acute Fever Acute Vomiting Acute
[2017-02-20] MEDS: oxyCODONE IR 5 MG TAB PO PRN ×2 (05:18→11:46)
[2017-02-20] MEDS: ONDANSETRON DISINTEGRATING 4 MG TAB PO PRN ×2 (05:22→11:13)
[2017-02-20] MEDS: HEPARIN 5,000 UNIT/0.5 ML SYR SC SCH ×3 (05:23→20:08)
[2017-02-20 09:07] LABS: PLATELET COUNT 82 10^3/uL (150-400)
--- NOTE | 2017-02-20 10:51 | SOAPPROG ---
SOAP Progress Note Assessment/Plan: Assessment: DEEPA continues to improve, pending today volume depletion better, now maintaining fluids by mouth only AIDS, likely disseminated BERRY poor nutrition, appetite is returning, had some nausea and vomiting, none today hypokalemia, better Plan: continue fluids, PO expand diet to regular continue anti-infectives per ID Await culture results Follow lytes vol and renal function 02/16/17 09:44 02/17/17 09:57 02/18/17 08:46 02/19/17 13:09 02/20/17 10:46 Subjective: Ramses is frustrated today, tired of being ill some nausea, no vomiting appetite is OK slept fine last night understands why his WBC is low, needs to take his meds as directed as an outpatient, but still frustrated no cp sob, some fatigue Objective: Vital Signs Temp Pulse Resp BP Pulse Ox 36.8 C 82 18 145/83 H 93 02/20/17 05:33 02/20/17 05:33 02/20/17 05:33 02/20/17 05:33 02/20/17 05:33 Microbiology 02/14/17 16:45 Blood Culture - Final Blood 02/14/17 16:37 Blood Culture - Final Blood 02/13/17 11:40 Gram Stain - Final Lung Right Lobe - Bronchial Washings Bronchial Washings Culture - Final 02/13/17 11:40 Gram Stain - Final Lung Right Lobe - Bronchial Washings Bronchial Washings Culture - Final Laboratory Results 02/20/17 08:49 02/19/17 02/20/17 02/21/17 05:59 05:59 05:59 Intake Total 1500 600 Output Total 800 500 Balance 700 100 PT 13.8 SEC (12.0-15.0) 02/18/17 11:30 INR 1.04 (0.83-1.16) 02/18/17 11:30 Physical Exam - Physical Exam General Appearance: alert, thin Respiratory: No rhonchi, No wheezing Cardiac/Chest: regular rate, rhythm, No edema, No friction rub Abdomen: normal bowel sounds, non-tender, soft Extremities: No swelling Neuro/Psych: alert, oriented x 3, depressed affect ICD10 Worksheet Patient Problems: Problems Problem Status Onset Dehydration Acute Renal failure Acute Anemia Acute Fever Acute Vomiting Acute
[2017-02-20] MEDS ORDERED: POTASSIUM CL 20 MEQ TAB PO ONE (10:57)
[2017-02-20] MEDS: DIFLUPREDNATE OPTH RTEYE SCH ×2 (11:45→20:09)
[2017-02-20] MEDS: RIFABUTIN 150 MG CAP PO SCH (11:45)
[2017-02-20] MEDS: Dolutegravir Sodium [Tivicay] 50 MG PO SCH (11:45)
[2017-02-20] MEDS: DRONABINOL 2.5 MG CAP PO SCH ×2 (11:46→20:20)
[2017-02-20] MEDS: ABACAVIR SULFATE 300 MG TAB PO SCH (11:46)
[2017-02-20] MEDS: ETHAMBUTOL HCL 400 MG TAB PO SCH (11:47)
--- NOTE | 2017-02-20 12:40 | SOAPPROG ---
SOAP Progress Note Assessment/Plan: E&M Pancytopenia * Pancytopenia: multiple potential causes including medication, AIDS, Mycobacterium. Concerns about possible lymphoproliferative process with lymphadenopathy. Multiple blood tests pending. BM Bx recommended but he is very reluctant. He is agreeable to having IR do it under conscious sedation. Labs are worse so will see if that can be set up tomorrow. * Acute kidney injury: Probably multifactorial; continues to improve * AIDS: Followed by ID. On Epivir and Dolutegravir. 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 On ethambutol, rifabutin, and azithromycin. On 5 day course of prednisone which could interfere with a lymphoma evaluation. Subjective: Still anxious and generally not feeling well. Objective: Vital Signs Temp Pulse Resp BP Pulse Ox 37.8 C 85 16 136/76 H 98 02/20/17 08:00 02/20/17 08:00 02/20/17 08:00 02/20/17 08:00 02/20/17 08:00 Microbiology 02/14/17 16:45 Blood Culture - Final Blood 02/14/17 16:37 Blood Culture - Final Blood 02/13/17 11:40 Gram Stain - Final Lung Right Lobe - Bronchial Washings Bronchial Washings Culture - Final 02/13/17 11:40 Gram Stain - Final Lung Right Lobe - Bronchial Washings Bronchial Washings Culture - Final Laboratory Results 02/20/17 08:49 02/20/17 09:49 02/19/17 02/20/17 02/21/17 05:59 05:59 05:59 Intake Total 1500 600 Output Total 800 500 Balance 700 100 PT 13.8 SEC (12.0-15.0) 02/18/17 11:30 INR 1.04 (0.83-1.16) 02/18/17 11:30 Laboratory Tests 02/18/17 02/20/17 05:12 08:49 WBC 0.72 L* 0.37 L* Hgb 8.9 L Hct 29.6 L Plt Count 87 L 82 L Physical Exam - Physical Exam General Appearance: no apparent distress, anxiety Respiratory: lungs clear Cardiac/Chest: regular rate, rhythm ICD10 Worksheet Patient Problems: Problems Problem Status Onset Dehydration Acute Renal failure Acute Anemia Acute Fever Acute Vomiting Acute
[2017-02-20] MEDS: ATOVAQUONE 750 MG/5 ML PO SCH ×3 (15:08→20:05)
[2017-02-20] MEDS: AZITHROMYCIN 600 MG TAB PO SCH (15:08)
[2017-02-20] MEDS: predniSONE 20 MG TAB PO SCH (15:09)
[2017-02-20] MEDS ORDERED: ALTEPLASE 2 MG VIAL IVP PRN (16:39)
--- NOTE | 2017-02-20 16:56 | PCMIDPN ---
Assessment/Plan: Assessment/Plan: * Acute kidney injury: Creatinine continues to improve. * AIDS: Continue anti-retroviral therapy with 3TC (dose increased 150 mg p.o. daily), Abacavir, and Dolutegravir. * Disseminated MAC: Continue azithromycin, ethambutol and rifabutin. Completed 5 days of prednisone. Unclear if recurrent fever due to persistent disseminated MAC, IRIS, or other etiology. See below discussion. * CMV retinitis of right eye: Continue Valcyte 450 mg daily. * Pulmonary nodules: Given persistent fever, will arrange for repeat CT scan of chest. * OI prophylaxis: Continue Mepron. * Pancytopenia: More profound leukopenia today. May be agreeable to bone marrow biopsy with conscious sedation. Oncology assisting with arranging this hopefully for tomorrow. Have discussed with patient importance of additional diagnostic information given his profound immunosuppression. Will start Ativan to see if this will help relieve anxiety associated with needle so that G CSF can be administered. * Fever: Recurrent fever today with broad differential diagnosis including persistent fever due to disseminated MAC/IRIS versus other etiology such as lymphoma versus complication of neutropenia such as bacteremia. Will obtain blood cultures and begin meropenem. Will need repeat CT scan of chest, abdomen , and pelvis - will plan for tomorrow if feasible before or after bone marrow biopsy. * Needle phobia: Will have PICC placed in a.m. so that blood draws will not involve needlestick. Time spent, greater than 35 min, of which greater than half was spent in education/counseling/coordination of care related to AIDS, disseminated MAC, pancytopenia, fever, and plan of care 02/20/17 16:55 02/20/17 17:02 Subjective: Patient with fever this afternoon. No chills. Some ongoing abdominal pain. Continues to be unable to tolerate consideration of G-CSF due to needle phobia. Objective: Vital Signs Temp Pulse Resp BP Pulse Ox 38.7 C H 95 19 123/69 H 95 02/20/17 15:57 02/20/17 15:57 02/20/17 15:57 02/20/17 15:57 02/20/17 15:57 Microbiology 02/14/17 16:45 Blood Culture - Final Blood 02/14/17 16:37 Blood Culture - Final Blood 02/13/17 11:40 Gram Stain - Final Lung Right Lobe - Bronchial Washings Bronchial Washings Culture - Final 02/13/17 11:40 Gram Stain - Final Lung Right Lobe - Bronchial Washings Bronchial Washings Culture - Final Laboratory Results 02/20/17 08:49 02/20/17 09:49 02/19/17 02/20/17 02/21/17 05:59 05:59 05:59 Intake Total 1500 600 Output Total 800 500 900 Balance 700 100 -900 3TC/Abacavir/Dolutegravir Mepron prophy Valcyte Azithro/EMB/Rifabutin - Physical Exam General Appearance: alert, non-toxic, other (Chronically ill-appearing) EENT: No thrush Respiratory: lungs clear, No respiratory distress Cardiac/Chest: regular rate, rhythm Extremities: No inflammation Abdomen: tender (Mild diffusely), No distended Skin: No rash ICD10 Worksheet Patient Problems: Problems Problem Status Onset Dehydration Acute Renal failure Acute Anemia Acute Fever Acute Vomiting Acute
[2017-02-20] MEDS: LORazepam 0.5 MG TAB PO PRN (16:57)
[2017-02-20] MEDS ORDERED: FILGRASTIM-SNDZ 480 MCG/0.8 ML SYR SC SCH (17:00)
[2017-02-20] MEDS: MEROPENEM 1 GM in NS 100 ML IV SCH (18:23)
--- NOTE | 2017-02-20 19:48 | HOSPPROG ---
Hospitalist Progress Note Assessment/Plan: #New fever: concerning with neutropenia. CT abd/a/p pending. CXR negative. Meropenem started. Blood cultures pending #Sepsis: resolved. #Progressive pancytopenia: ddx includes: MAC, medications, AIDS, lymphoproliferative disease. He agrees to BM biopsy tomorrow with conscious sedation. Neupogen #AIDs: HAART therapy. Viral load > 3million #Disseminated MAC: ethambutol, rifabutin, azithro #CMV retinitis right eye: Valcyte DEEPA: Cr down to 2. Likely ATN and NSAID-related. Liberalized diet U/S shows medical renal disease. No indication for HD #Depressed mood/anxiety: have had several conversations stating SSRI would be beneficial. He wants to think about. Add Ativan to help tolerate procedures #DVT ppx: SQH #Disp: cont inpatient admission with DEEPA, MAC infection. Cont abx, serial labs Subjective: abd pain last night after eating pizza. Very scared of BM biopsy Objective: Vital Signs Temp Pulse Resp BP Pulse Ox 38.7 C H 95 19 123/69 H 95 02/20/17 15:57 02/20/17 15:57 02/20/17 15:57 02/20/17 15:57 02/20/17 15:57 Microbiology 02/14/17 16:45 Blood Culture - Final Blood 02/14/17 16:37 Blood Culture - Final Blood 02/13/17 11:40 Gram Stain - Final Lung Right Lobe - Bronchial Washings Bronchial Washings Culture - Final 02/13/17 11:40 Gram Stain - Final Lung Right Lobe - Bronchial Washings Bronchial Washings Culture - Final Laboratory Results 02/20/17 08:49 02/20/17 09:49 02/19/17 02/20/17 02/21/17 05:59 05:59 05:59 Intake Total 1500 600 Output Total 800 500 900 Balance 700 100 -900 PT 13.8 SEC (12.0-15.0) 02/18/17 11:30 INR 1.04 (0.83-1.16) 02/18/17 11:30 - Physical Exam Constitutional: chronically ill appearing Eyes: PERRL Ears, Nose, Mouth, Throat: moist mucous membranes, hearing normal Cardiovascular: regular rate and rhythym Respiratory: no respiratory distress Gastrointestinal: normoactive bowel sounds, tenderness Genitourinary: no bladder fullness Neurologic: AAOx3 Psychiatric: depressed, flat affect ICD10 Worksheet Patient Problems: Problems Problem Status Onset Dehydration Acute Renal failure Acute Anemia Acute Fever Acute Vomiting Acute
[2017-02-20] MEDS: FILGRASTIM-SNDZ 300 MCG/0.5 ML SYR SC SCH (20:05)
[2017-02-20] MEDS: ACETAMINOPHEN 325 MG TAB PO PRN (23:39)
[2017-02-21] MEDS: MEROPENEM 1 GM in NS 100 ML IV SCH ×2 (04:39→17:31)
[2017-02-21] MEDS: ACETAMINOPHEN 325 MG TAB PO PRN ×4 (04:39→17:36)
[2017-02-21] MEDS: HEPARIN 5,000 UNIT/0.5 ML SYR SC SCH ×3 (04:42→21:13)
[2017-02-21] MEDS: oxyCODONE IR 5 MG TAB PO PRN ×3 (04:44→21:23)
[2017-02-21] MEDS: ONDANSETRON DISINTEGRATING 4 MG TAB PO PRN ×2 (09:26→23:29)
[2017-02-21] MEDS: LORazepam 0.5 MG TAB PO PRN (09:30)
--- NOTE | 2017-02-21 10:14 | PCMIDPN ---
Assessment/Plan: 1. Acute kidney injury: Slowly improving. Etiology unclear, but suspect multifactorial (dehydration, nonsteroidals, tenofovir). Appreciate Nephrology assistance. Will repeat complete metabolic panel today. 2. AIDS: Continue Epivir 150 mg daily, ABC 600 mg daily, and Dolutegravir 50 mg daily. All medications need to be given together, with or without food. 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 Repeat CMV PCR not done correctly. I reordered it in the serum. 4. 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 Will repeat CT studies of the chest abdomen and pelvis today. The patient is agreeable and understands the necessity of the studies. Bone marrow biopsy tomorrow; appreciate Hematology assistance. He is agreeable to starting Neupogen with some Ativan given his needle phobia. 5. Prophylaxis: Patient has a history of a desquamating rash to sulfa. Continue Mepron 1500 mg/ 750 given interaction with rifabutin. Toxo IgG negative. Please also note that the complement fixation titer for Coccidioides gave uninterpretable results for the IgG x2. I did call [facility], who told me that the control was also positive. I spoke to 1 of the laboratory physicians, who felt this was secondary to cross reactivity and not active disease. They recommended a urine Coccidioides antigen and serum Coccidioides antigen, which I have ordered as miscellaneous tests. Suspicion for disseminated Coccidioides is low at this point in time. I spoke with Renny Arceo regarding the patient' s bronch wash; he did not see spherules. Fungal culture of the bronch did not grow Coccidioides. Blood cultures have also been negative. I also spoke to patient: He reports he travel to [facility] for a week last year for a job working in [employer]. He states that he was not working in the dirt or dust. Denies any travel to [facility] or [facility] in [place], ever. States he is spent the majority of his life in [place]. 6. History of esophageal candidiasis: No symptoms presently. No evidence of oral thrush. No need for fluconazole. 7. Fevers: Continue meropenem. Differential diagnosis broad, as outlined by my colleague, Dr. Robles. Also of note, ABC hypersensitivity reaction is less likely given his negative HLA [id number] test. Over 60 min was spent with this patient today, speaking with him about his grave diagnoses, and coordinating his care. 02/21/17 10:19 Subjective: Weekend events noted. Patient had recurrent fevers and meropenem was restarted. He continued to refuse Neupogen given his phobia of needles. Progressive leukopenia and thrombocytopenia noted. Patient states he ate a large on what this morning, but was vomiting when I walked in the room this morning. He states he kept food down yesterday and denies diarrhea. No headaches, and vision in the right eye is stable. No dysphagia or odynophagia. Objective: Azithromycin 600 mg daily Rifabutin 300 mg daily Ethambutol 1200 mg daily Meropenem 1 g IV q.12 hours day 2. Mepron 1500/750 Valcyte 450 daily Dolutegravir 50 mg daily ABC 600 mg daily 3TC 150 mg daily T-max 39.4 Vital Signs Temp Pulse Resp BP Pulse Ox 38.1 C 104 H 22 H 158/80 H 98 02/21/17 08:57 02/21/17 08:25 02/21/17 08:25 02/21/17 09:03 02/21/17 08:25 Microbiology 02/14/17 16:45 Blood Culture - Final Blood 02/14/17 16:37 Blood Culture - Final Blood Laboratory Results 02/20/17 08:49 02/20/17 09:49 02/20/17 02/21/17 02/22/17 05:59 05:59 05:59 Intake Total 600 1600 Output Total 500 1875 275 Balance 100 -275 -275 Repeat blood cultures from yesterday are pending - Physical Exam General Appearance: cachetic, other (Looks tired.) EENT: pharynx normal, No scleral icterus, No thrush Respiratory: lungs clear Cardiac/Chest: tachycardia Abdomen: soft, distended Skin: No rash Neuro/Psych: no motor/sensory deficits, oriented x 3 ICD10 Worksheet Patient Problems: Problems Problem Status Onset Dehydration Acute Renal failure Acute Anemia Acute Fever Acute Vomiting Acute
--- NOTE | 2017-02-21 10:17 | HOSPPROG ---
Hospitalist Progress Note Assessment/Plan: #New fever: concerning with neutropenia. Meropenem started. Blood cultures pending -CXR negative, UA pending. -CT chest/A&P without obvious etiology #Sepsis: resolved. #Hypokalemia: replete #Progressive pancytopenia: ddx includes: MAC, medications, AIDS, lymphoproliferative disease. -plan for BM biopsy tomorrow with conscious sedation. Query the utility given the underlying uncontrolled AIDs, medical noncompliance. If had underlying malignancy, suspect wouldn't clinically tolerate any treatment -Neupogen #AIDs: HAART therapy. Viral load > 3million #Disseminated MAC: ethambutol, rifabutin, azithro #CMV retinitis right eye: Valcyte DEEPA: Cr down to 2. Likely ATN and NSAID-related. Liberalized diet U/S shows medical renal disease. No indication for HD #Depressed mood/anxiety: have had several conversations stating SSRI would be beneficial. He wants to think about. Add Ativan to help tolerate procedures #DVT ppx: SQH #Disp: cont inpatient admission with DEEPA, MAC infection. Cont abx, serial labs #Goals: query the utility of further testing if patient not compliant with medications. He is demanding in his cares, refusing lab draws, etc. PICC placement today may alleviate some of these issues. Would benefit from Palliative Care consult Discussed case with Dr. Linares and Dr. Cason Subjective: less abd pain today. Had emesis this morning Objective: Vital Signs Temp Pulse Resp BP Pulse Ox 38.1 C 104 H 22 H 158/80 H 98 02/21/17 08:57 02/21/17 08:25 02/21/17 08:25 02/21/17 09:03 02/21/17 08:25 Microbiology 02/14/17 16:45 Blood Culture - Final Blood 02/14/17 16:37 Blood Culture - Final Blood Laboratory Results 02/20/17 08:49 02/20/17 09:49 02/20/17 02/21/17 02/22/17 05:59 05:59 05:59 Intake Total 600 1600 Output Total 500 1875 275 Balance 100 -275 -275 PT 13.8 SEC (12.0-15.0) 02/18/17 11:30 INR 1.04 (0.83-1.16) 02/18/17 11:30 - Time Spent With Patient Time Spent with Patient: greater than 35 minutes Time Spent with Patient: Greater than 35 minutes spent on this patients care, greater than 50% of time spent counseling, educating, and coordinating care regarding the above mentioned plan. - Physical Exam Constitutional: cachectic Eyes: PERRL Ears, Nose, Mouth, Throat: moist mucous membranes Cardiovascular: regular rate and rhythym, no murmur, rub, or gallop Respiratory: no respiratory distress, no rales or rhonchi Gastrointestinal: normoactive bowel sounds, soft, non-tender abdomen, No distension Genitourinary: No guallpa in urethra Skin: warm Musculoskeletal: full muscle strength Neurologic: AAOx3, CN II-XII Intact ICD10 Worksheet Patient Problems: Problems Problem Status Onset Dehydration Acute Renal failure Acute Anemia Acute Fever Acute Vomiting Acute
[2017-02-21] MEDS: DIFLUPREDNATE OPTH RTEYE SCH ×2 (10:30→21:12)
[2017-02-21] MEDS: Dolutegravir Sodium [Tivicay] 50 MG PO SCH (10:31)
[2017-02-21] MEDS: DRONABINOL 2.5 MG CAP PO SCH ×2 (10:32→21:11)
[2017-02-21] MEDS: ABACAVIR SULFATE 300 MG TAB PO SCH (10:32)
[2017-02-21] MEDS: ETHAMBUTOL HCL 400 MG TAB PO SCH (10:32)
--- NOTE | 2017-02-21 10:33 | SOAPPROG ---
SOAP Progress Note Assessment/Plan: Assessment/Plan: DEEPA: improving, Cr down to 2.0 yesterday from 6.7 at presentation, nonoliguric, lytes ok. - No need for HD. - Will continue to monitor. - Avoid hypotension and nephrotoxins. Hypokalemia: given KCl yesterday, will await lab results today after PICC line placement and replace as needed. Hyponatremia: improved, sodium 137 yesterday, now on 2L fluid restriction. Will continue to monitor and liberalize fluid restriction as tolerated. Metabolic acidosis: in setting of DEEPA, which is now recovering. Will continue to monitor. Subjective: Pt had fevers overnight. He notes that he feels hot in the room. He is very afraid of needles, getting a PICC line today. He has agreed to Neupogen. Objective: Vital Signs Temp Pulse Resp BP Pulse Ox 38.1 C 104 H 22 H 158/80 H 98 02/21/17 08:57 02/21/17 08:25 02/21/17 08:25 02/21/17 09:03 02/21/17 08:25 Microbiology 02/14/17 16:45 Blood Culture - Final Blood 02/14/17 16:37 Blood Culture - Final Blood Laboratory Results 02/20/17 08:49 02/20/17 09:49 02/20/17 02/21/17 02/22/17 05:59 05:59 05:59 Intake Total 600 1600 Output Total 500 1875 275 Balance 100 -275 -275 PT 13.8 SEC (12.0-15.0) 02/18/17 11:30 INR 1.04 (0.83-1.16) 02/18/17 11:30 General: alert and oriented, no acute distress Eyes: EOMI, PERRL OP: Clear CV: RRR Resp: nonlabored respirations on RA Abd: Soft, NT Ext: no edema Neuro: CN II-XII Grossly intact, no asterixis Psych: cooperative ICD10 Worksheet Patient Problems: Problems Problem Status Onset Dehydration Acute Renal failure Acute Anemia Acute Fever Acute Vomiting Acute
[2017-02-21] MEDS: RIFABUTIN 150 MG CAP PO SCH (11:39)
[2017-02-21] MEDS: AZITHROMYCIN 600 MG TAB PO SCH (11:39)
[2017-02-21] MEDS: ATOVAQUONE 750 MG/5 ML PO SCH ×2 (11:48→17:31)
[2017-02-21] MEDS: FILGRASTIM-SNDZ 300 MCG/0.5 ML SYR SC SCH (14:16)
[2017-02-21 14:37] LABS: PLATELET COUNT 85 10^3/uL (150-400)
--- NOTE | 2017-02-21 14:44 | ASMTCMCOM ---
CM Note CM Note Notes: Patient now with new fever. Discharge date remains unclear. Also reviewed therapy recommendations, patient has been cleared for home. Case Management will continue to follow for discharge needs, tbd at this time. Date Signed: 02/21/2017 02:43 PM Electronically Signed By:Estefanía Nichole RN
[2017-02-21] MEDS ORDERED: POTASSIUM CL 20 MEQ TAB PO ONE (17:33)
[2017-02-22] MEDS: ACETAMINOPHEN 325 MG TAB PO PRN ×3 (01:33→20:41)
[2017-02-22] MEDS: ONDANSETRON DISINTEGRATING 4 MG TAB PO PRN (05:05)
[2017-02-22] MEDS: HEPARIN 5,000 UNIT/0.5 ML SYR SC SCH ×3 (05:06→22:18)
[2017-02-22] MEDS: MEROPENEM 1 GM in NS 100 ML IV SCH (05:06)
[2017-02-22] MEDS: oxyCODONE IR 5 MG TAB PO PRN (07:50)
[2017-02-22 07:52] LABS: PLATELET COUNT 62 10^3/uL (150-400)
[2017-02-22] MEDS: ONDANSETRON 4 MG/2 ML VIAL IVP PRN (09:02)
[2017-02-22] MEDS ORDERED: POTASSIUM CL 20 MEQ TAB PO ONE (09:19)
--- NOTE | 2017-02-22 09:31 | PCMIDPN ---
Assessment/Plan: 1. Acute kidney injury: Slowly improving. Etiology unclear, but suspect multifactorial (dehydration, nonsteroidals, tenofovir). Appreciate Nephrology assistance. 2. AIDS: Continue Epivir 150 mg daily, ABC 600 mg daily, and Dolutegravir 50 mg daily. All medications need to be given together, with or without food. 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 Repeat CMV PCR not done correctly. I reordered it. 4. 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 Given stability/improvement in abnormalities seen on CT scans of the chest/abdomen /pelvis, will hold off on bone marrow biopsy. Suspect he has a component of immune reconstitution, and will add back prednisone at 60 mg daily With plans on a slow taper. Continue Neupogen. Case discussed with Dr. Brtiton of Oncology, who agrees. 5. Prophylaxis: Continue Mepron for Pneumocystis prophylaxis. Coccidioides testing re- done yesterday as per my note. 6. History of esophageal candidiasis: The patient has no oral candidiasis, but given persistent thickening of his esophagus on CT scan and fevers, will add back fluconazole dose adjusted for renal insufficiency at 100 mg daily for 14 days. of note, Diane glabrata and Diane dublinensis were isolated in his bronch wash. Diane glabrata has been associated with azole resistance, but patient previously responded to fluconazole, so will not use Micafungin up front. 7. Fevers: Continue meropenem as is given neutropenia, although no evidence of bacterial process at this point in time. Suspect fevers are multifactorial. No evidence of drug eruption. Over 25 min was spent with this patient. 02/22/17 09:34 Subjective: Reviewed CT scans with --- adenopathy in the chest abdomen and pelvis is stable, and parenchymal abnormality/ nodule in the chest is practically gone. Spoke with Dr. Britton regarding bone marrow biopsy. Both he and I feel that this is likely not going to be helpful, as would expect patient to be worsening radiographically and clinically if he had untreated /undiagnosed lymphoma or other infectious process at this point in time. The patient is absolutely thrilled that he does not need a bone marrow biopsy in tells me that he wants to eat that he is starving. No nausea or vomiting today. No diarrhea. Objective: Meropenem 1 g IV q.12 hours day 2 azithromycin 600 mg daily ethambutol 1200 mg daily rifabutin 300 mg daily Dolutegravir 50 mg daily/ABC 600 mg daily/3TC 150 mg daily Mepron 1500/750 Vital Signs Temp Pulse Resp BP Pulse Ox 37.9 C 90 16 108/42 L 95 02/22/17 08:48 02/22/17 09:20 02/22/17 09:20 02/22/17 09:20 02/22/17 09:20 Microbiology 02/21/17 15:54 Mycobacterial Smear (JOSE ELIAS) - Final Blood Laboratory Results 02/22/17 07:40 02/22/17 04:46 02/21/17 02/22/17 02/23/17 05:59 05:59 05:59 Intake Total 1600 2205 Output Total 1875 1825 Balance -275 380 Recent blood cultures no growth to date no new microbiology - Physical Exam General Appearance: alert, no apparent distress EENT: pharynx normal, No thrush Respiratory: lungs clear Cardiac/Chest: regular rate, rhythm Abdomen: soft Skin: No rash Neuro/Psych: oriented x 3 ICD10 Worksheet Patient Problems: Problems Problem Status Onset Dehydration Acute Renal failure Acute Anemia Acute Fever Acute Vomiting Acute
[2017-02-22] MEDS: ETHAMBUTOL HCL 400 MG TAB PO SCH (09:47)
[2017-02-22] MEDS: DRONABINOL 2.5 MG CAP PO SCH ×2 (09:47→20:36)
[2017-02-22] MEDS: ABACAVIR SULFATE 300 MG TAB PO SCH (09:47)
[2017-02-22] MEDS: DIFLUPREDNATE OPTH RTEYE SCH ×2 (09:48→20:38)
[2017-02-22] MEDS: Dolutegravir Sodium [Tivicay] 50 MG PO SCH (09:48)
[2017-02-22] MEDS: FLUCONAZOLE 100 MG TAB PO SCH (09:53)
[2017-02-22] MEDS: predniSONE 20 MG TAB PO SCH (09:53)
--- NOTE | 2017-02-22 09:55 | SOAPPROG ---
SOAP Progress Note Assessment/Plan: Assessment/Plan: DEEPA: improving, Cr down to 1.9 today from 6.7 at presentation, nonoliguric, lytes ok. - No need for HD. - Will continue to monitor. - Avoid hypotension and nephrotoxins. Hypokalemia: given KCl yesterday, K now up to 3.5, will give additional KCl 20meq po x1 and continue to monitor. Hyponatremia: improved, sodium 131 on 2L fluid restriction. Will continue current fluid restriction and liberalize as tolerated. Metabolic acidosis: in setting of DEEPA, which is now recovering. CO2 up to 20. Will continue to monitor. Subjective: Pt states he is in a better mood today, heard that WBC count is slightly improved today and that he will not be getting bone marrow biopsy after all. Objective: Vital Signs Temp Pulse Resp BP Pulse Ox 37.9 C 90 16 108/42 L 95 02/22/17 08:48 02/22/17 09:20 02/22/17 09:20 02/22/17 09:20 02/22/17 09:20 Microbiology 02/21/17 15:54 Mycobacterial Smear (JOSE ELIAS) - Final Blood Laboratory Results 02/22/17 07:40 02/22/17 04:46 02/21/17 02/22/17 02/23/17 05:59 05:59 05:59 Intake Total 1600 2205 Output Total 1875 1825 Balance -275 380 PT 13.8 SEC (12.0-15.0) 02/18/17 11:30 INR 1.04 (0.83-1.16) 02/18/17 11:30 General: alert and oriented, no acute distress Eyes: EOMI, pERRL OP: Clear CV: RRR Resp: nonlabored respirations Abd: Soft, NT/ND Ext: no edema BLE neuro: CN II-XII grossly intact, no asterixis Psych: cooperative ICD10 Worksheet Patient Problems: Problems Problem Status Onset Dehydration Acute Renal failure Acute Anemia Acute Fever Acute Vomiting Acute
[2017-02-22] MEDS: AZITHROMYCIN 600 MG TAB PO SCH (11:02)
[2017-02-22] MEDS: ATOVAQUONE 750 MG/5 ML PO SCH ×2 (11:02→20:39)
[2017-02-22] MEDS: RIFABUTIN 150 MG CAP PO SCH (11:02)
--- NOTE | 2017-02-22 12:45 | HOSPPROG ---
Hospitalist Progress Note Assessment/Plan: DIAGNOSES: + neutropenic fever in setting of AIDS with severe immunosuppression; no definite identified source of fever at this time + severe pancytopenia + suspicion for HIV immune reconstitution syndrome + acute renal failure, suspected primarily hemodynamic, possibility of other etiologic factors considered + suspected esophageal candidiasis + acute sepsis resolved + hypokalemia, resolved with treatment + known AIDS on HAART + known disseminated MAC + known CMV retinitis right eye I reviewed the patient's case in detail today with doctors She Cason and Samra Hartman. He is showing improvement in white cell and neutrophil counts today. It seems unlikely that this represents leukemia or aplastic anemia. His platelets and red cells are stable. Immune reconstitution syndrome is certainly or real possibility for him at this point. Some affective his disseminated MAC on his marrow expected and there could potentially be other infectious illnesses affecting marrow. A marrow biopsy or aspirate is unlikely to eliminate any new diagnoses or processes otherwise at this point. Dr. Hartman is recommending that we did not do a marrow biopsy at this time and I would agree. PLANS: -therapy added at this time for esophageal candidiasis -continue current antibiotics for neutropenic fever coverage while we observe for any signs of other bacterial infection -continue HAART -continue current therapy for MAC and CMV -increase activity as able -no medication for DVT prophylaxis at this time with his low platelets SUBJECTIVE: Patient feels slightly better today but still very weak and tired Still having some chills and sweats OBJECTIVE Vitals reviewed: T-max this morning 38.8, otherwise stable vitals Exam: alert oriented Looks extremely fatigued and weak skin warm dry color ok resps not labored lungs clear BSs heart regular abd soft nondistended nontender, bowel sounds present limbs warm, no edema iv site ok Objective: Vital Signs Temp Pulse Resp BP Pulse Ox 37.9 C 75 15 106/62 99 02/22/17 08:48 02/22/17 11:39 02/22/17 11:39 02/22/17 11:39 02/22/17 11:39 Microbiology 02/21/17 15:54 Mycobacterial Smear (JOSE ELIAS) - Final Blood Laboratory Results 02/22/17 07:40 02/22/17 04:46 02/21/17 02/22/17 02/23/17 06:59 06:59 06:59 Intake Total 1600 2205 Output Total 1875 1825 400 Balance -275 380 -400 PT 13.8 SEC (12.0-15.0) 02/18/17 11:30 INR 1.04 (0.83-1.16) 02/18/17 11:30 ICD10 Worksheet Patient Problems: Problems Problem Status Onset Dehydration Acute Renal failure Acute Anemia Acute Fever Acute Vomiting Acute
--- NOTE | 2017-02-22 13:08 | SOAPPROG ---
SOAP Progress Note Assessment/Plan: Assessment: 1.) Pancytopenia, thought secondary to underlying infectious processes and therapies, showing some improvement in his ANC on G-CSF, SQ daily. No need for transfusion support today. 2.) AIDS 3.) Disseminated MAC 4.) CMV retinitis 5.) Acute renal insufficiency, Cr 1.9 today 6.) R fungal pneumonia, Diane species cultured 7.) Depression 8.) Esophageal Candidiasis 9.) Mediastinal and intra-abdominal lymphadenopathy, which could be reactive to infectious processes 10.) Pleural effusion, likely due to infectious process - lung. Plan: Our service will follow while inpatient. Continue G-CSF SQ daily At this point, I think it is entirely reasonable to defer bone marrow procedure given his clinical scenario. 02/22/17 13:08 Subjective: Pt. soundly asleep at time of hospital rounding @ 1 PM today. Pt. comfortable in appearance. Objective: Pt not examined or interviewed. His Tmax of 38.3 noted Labs here noted PLT 62, WBC up slightly 0.74 with ANC of .54, Hgb 7.8 Imaging noted with RML consolidation and mediastinal, mesenteric and retroperitoneal LN enlargement noted on CT scans, 02/21/17. Vital Signs Temp Pulse Resp BP Pulse Ox 37.9 C 75 15 106/62 99 02/22/17 08:48 02/22/17 11:39 02/22/17 11:39 02/22/17 11:39 02/22/17 11:39 Microbiology 02/21/17 15:54 Mycobacterial Smear (JOSE ELIAS) - Final Blood Laboratory Results 02/22/17 07:40 02/22/17 04:46 02/21/17 02/22/17 02/23/17 05:59 05:59 05:59 Intake Total 1600 2205 Output Total 1875 1825 400 Balance -275 380 -400 PT 13.8 SEC (12.0-15.0) 02/18/17 11:30 INR 1.04 (0.83-1.16) 02/18/17 11:30 ICD10 Worksheet Patient Problems: Problems Problem Status Onset Dehydration Acute Renal failure Acute Anemia Acute Fever Acute Vomiting Acute
[2017-02-22] MEDS: FILGRASTIM-SNDZ 300 MCG/0.5 ML SYR SC SCH (14:49)
[2017-02-22] MEDS ORDERED: MEROPENEM 1 GM in STERILE WATER INJ 20 ML IV SCH (17:00)
[2017-02-23] MEDS: ACETAMINOPHEN 325 MG TAB PO PRN ×2 (03:44→11:21)
[2017-02-23] MEDS: MEROPENEM 1 GM in STERILE WATER INJ 20 ML IV SCH ×2 (05:15→18:14)
[2017-02-23 05:32] LABS: PLATELET COUNT 76 10^3/uL (150-400)
[2017-02-23] MEDS: oxyCODONE IR 5 MG TAB PO PRN ×2 (08:48→11:10)
[2017-02-23] MEDS: HEPARIN 5,000 UNIT/0.5 ML SYR SC SCH ×2 (08:53→13:13)
[2017-02-23] MEDS: ABACAVIR SULFATE 300 MG TAB PO SCH (09:36)
[2017-02-23] MEDS: DRONABINOL 2.5 MG CAP PO SCH ×2 (09:36→23:09)
[2017-02-23] MEDS: ETHAMBUTOL HCL 400 MG TAB PO SCH (09:36)
[2017-02-23] MEDS: predniSONE 20 MG TAB PO SCH (09:36)
[2017-02-23] MEDS: FLUCONAZOLE 100 MG TAB PO SCH (09:36)
[2017-02-23] MEDS: Dolutegravir Sodium [Tivicay] 50 MG PO SCH (09:39)
[2017-02-23] MEDS: DIFLUPREDNATE OPTH RTEYE SCH ×2 (09:42→23:09)
[2017-02-23] MEDS: ATOVAQUONE 750 MG/5 ML PO SCH ×2 (11:10→18:14)
[2017-02-23] MEDS: AZITHROMYCIN 600 MG TAB PO SCH (11:10)
[2017-02-23] MEDS: LORazepam 0.5 MG TAB PO PRN (11:15)
[2017-02-23] MEDS: RIFABUTIN 150 MG CAP PO SCH (11:21)
[2017-02-23] MEDS: ONDANSETRON 4 MG/2 ML VIAL IVP PRN (12:18)
--- NOTE | 2017-02-23 12:56 | SOAPPROG ---
SOAP Progress Note Assessment/Plan: Assessment: DEEPA continues to improve, 1.7 today volume depletion better, now maintaining fluids by mouth only AIDS, likely disseminated BERRY poor nutrition, appetite is returning, had some nausea and vomiting, none today hypokalemia, better Plan: continue fluids, PO expand diet to regular continue anti-infectives per ID Await culture results Follow lytes vol and renal function Add K supplement for the next several days 02/16/17 09:44 02/17/17 09:57 02/18/17 08:46 02/19/17 13:09 02/20/17 10:46 02/23/17 12:53 Subjective: looks and feels better today no cp, SOB improving appetite better getting up and around better cough, but not productive spirits good Objective: Vital Signs Temp Pulse Resp BP Pulse Ox 36.5 C 77 18 111/69 100 02/23/17 08:42 02/23/17 08:42 02/23/17 08:42 02/23/17 08:42 02/23/17 08:42 Microbiology 02/13/17 11:40 Mycobacterial Smear (JOSE ELIAS) - Final Lung Right Lobe - Bronchial Washings 02/21/17 15:54 Mycobacterial Smear (JOSE ELIAS) - Final Blood 02/13/17 11:40 Mycobacterial Smear (JOSE ELIAS) - Final Lung Right Lobe - Bronchial Washings Laboratory Results 02/23/17 05:15 02/23/17 05:15 02/22/17 02/23/17 02/24/17 05:59 05:59 05:59 Intake Total 2205 1094 Output Total 1825 900 Balance 380 194 PT 13.8 SEC (12.0-15.0) 02/18/17 11:30 INR 1.04 (0.83-1.16) 02/18/17 11:30 Physical Exam - Physical Exam General Appearance: alert, thin Respiratory: No rhonchi, No wheezing Cardiac/Chest: regular rate, rhythm, No edema, No gallop, No friction rub Abdomen: normal bowel sounds, non-tender, soft Extremities: No non-tender, No swelling Neuro/Psych: alert, normal mood/affect, oriented x 3 ICD10 Worksheet Patient Problems: Problems Problem Status Onset Dehydration Acute Renal failure Acute Anemia Acute Fever Acute Vomiting Acute
--- NOTE | 2017-02-23 14:44 | PCMIDPN ---
Assessment/Plan: Assessment: HIV/aids-low CD4 count high viral load. Patient just recently restarted on anti -retroviral therapy. Suspect ongoing fevers are likely due to immune reconstitution syndrome. Patient has a depressed white blood cell count and is also pancytopenic and other lines likely due to complications from HIV. Continuing to cover as if neutropenic fever with meropenem. Thrush/candidal esophagitis-presumed secondary to thickening of the esophagus wall on imaging. Covering with fluconazole. CMV retinitis-on Valcyte. Repeat CMV PCR is undetectable. Disseminated BERRY-on rifampin, azithromycin and ethambutol. Stable lymphadenopathy in the retroperitoneum may be due to a combination of disseminated BERRY disease as well as immune reconstitution syndrome. Acute kidney injury-improving gradually. Plan: 1. Continue meropenem in coverage for neutropenic fever. 2. Continue Valcyte for CMV retinitis. 3. Continue fluconazole to cover candidal esophagitis. 4. Continue anti-retroviral regimen. 5. Monitor clinical status as well as fever curve. 6. Continue rifampin, azithromycin and ethambutol for disseminated BERRY. 02/23/17 14:47 02/23/17 14:47 02/23/17 14:48 Subjective: Patient is resting comfortably in his hospital room. He notes occasional fevers. Small aches and pains that are intense but only last 5-10 seconds. No other new complaints. Objective: Vital Signs Temp Pulse Resp BP Pulse Ox 37.4 C 77 18 111/69 100 02/23/17 11:10 02/23/17 08:42 02/23/17 08:42 02/23/17 08:42 02/23/17 08:42 Microbiology 02/13/17 11:40 Mycobacterial Smear (JOSE ELIAS) - Final Lung Right Lobe - Bronchial Washings 02/21/17 15:54 Mycobacterial Smear (JOSE ELIAS) - Final Blood 02/13/17 11:40 Mycobacterial Smear (JOSE ELIAS) - Final Lung Right Lobe - Bronchial Washings Laboratory Results 02/23/17 05:15 02/23/17 05:15 02/22/17 02/23/17 02/24/17 05:59 05:59 05:59 Intake Total 2205 1094 750 Output Total 1825 900 200 Balance 380 194 550 ICD10 Worksheet Patient Problems: Problems Problem Status Onset Dehydration Acute Renal failure Acute Anemia Acute Fever Acute Vomiting Acute
[2017-02-23] MEDS: FILGRASTIM-SNDZ 300 MCG/0.5 ML SYR SC SCH (15:12)
--- NOTE | 2017-02-23 16:53 | HOSPPROG ---
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 Kvng Ashley At this point he is still having no specific acute bacterial or other infectious organism identified beyond his previous site identified opportunistic infections There is no focal disease process indicating a new infectious process The high suspicion remains for an immune reconstitution syndrome though as he has had severe neutropenia and fevers will continue to watch him on ongoing antibiotics. Will review again with Infectious Disease tomorrow. If he remains without fevers at that time we may be able to consider discharging him with the without antibiotic. PLANS: -therapy added at this time for esophageal candidiasis -continue current antibiotics for neutropenic fever coverage while we observe for any signs of other bacterial infection -continue HAART -continue current therapy for MAC and CMV -increase activity as able -no medication for DVT prophylaxis at this time with his low platelets -continue follow renal function and cell counts closely on a daily basis SUBJECTIVE: A bit stronger today but still fairly weak. Eating a little better No chills or sweats today Some diffuse aches in his skeleton no other pain OBJECTIVE Vitals reviewed: No fever since yesterday morning otherwise stable Exam: alert oriented Looks extremely fatigued and weak skin warm dry color ok resps not labored lungs clear BSs heart regular abd soft nondistended nontender, bowel sounds present limbs warm, no edema iv site ok Laboratory data: All cell counts continue to rise slowly today Creatinine slightly better at 1.7 today Objective: Vital Signs Temp Pulse Resp BP Pulse Ox 37.4 C 77 18 111/69 100 02/23/17 11:10 02/23/17 08:42 02/23/17 08:42 02/23/17 08:42 02/23/17 08:42 Microbiology 02/13/17 11:40 Mycobacterial Smear (JOSE ELIAS) - Final Lung Right Lobe - Bronchial Washings 02/13/17 11:40 Mycobacterial Smear (JOSE ELIAS) - Final Lung Right Lobe - Bronchial Washings 02/21/17 15:54 Mycobacterial Smear (JOSE ELIAS) - Final Blood Laboratory Results 02/23/17 05:15 02/23/17 05:15 02/22/17 02/23/17 02/24/17 06:59 06:59 06:59 Intake Total 2205 1094 750 Output Total 1825 900 200 Balance 380 194 550 PT 13.8 SEC (12.0-15.0) 02/18/17 11:30 INR 1.04 (0.83-1.16) 02/18/17 11:30 - Time Spent With Patient Time Spent with Patient: greater than 35 minutes Time Spent with Patient: Greater than 35 minutes spent on this patients care, greater than 50% of time spent counseling, educating, and coordinating care regarding the above mentioned plan. ICD10 Worksheet Patient Problems: Problems Problem Status Onset Dehydration Acute Renal failure Acute Anemia Acute Fever Acute Vomiting Acute
[2017-02-24] MEDS: HEPARIN 5,000 UNIT/0.5 ML SYR SC SCH ×4 (01:40→23:44)
[2017-02-24] MEDS: MEROPENEM 1 GM in STERILE WATER INJ 20 ML IV SCH (04:40)
[2017-02-24 05:06] LABS: PLATELET COUNT 107 10^3/uL (150-400)
--- NOTE | 2017-02-24 07:42 | SOAPPROG ---
SOAP Progress Note Assessment/Plan: Assessment: DEEPA continues to improve, 1.4 today volume depletion better, now maintaining fluids by mouth only AIDS, likely disseminated BERRY poor nutrition, appetite is returning, had some nausea and vomiting earlier this week, none today Plan: continue fluids, PO expand diet to regular continue anti-infectives per ID Await culture results Follow lytes vol and renal function Add K supplement for the next several days Renal signing off 02/16/17 09:44 02/17/17 09:57 02/18/17 08:46 02/19/17 13:09 02/20/17 10:46 02/23/17 12:53 02/24/17 07:39 Subjective: spirits good girlfriend at bedside no cp sob nausea or vomiting appetite picking up seems more enthusiastic today energy better sleeping better Objective: Vital Signs Temp Pulse Resp BP Pulse Ox 36.5 C 74 16 103/65 98 02/24/17 04:39 02/24/17 04:39 02/24/17 04:39 02/24/17 04:39 02/24/17 04:39 Microbiology 02/13/17 11:40 Mycobacterial Smear (JOSE ELIAS) - Final Lung Right Lobe - Bronchial Washings Laboratory Results 02/24/17 04:45 02/24/17 04:45 02/23/17 02/24/17 02/25/17 05:59 05:59 05:59 Intake Total 1094 1510 Output Total 900 201 Balance 194 1309 PT 13.8 SEC (12.0-15.0) 02/18/17 11:30 INR 1.04 (0.83-1.16) 02/18/17 11:30 Physical Exam - Physical Exam General Appearance: alert, thin Respiratory: No rhonchi, No wheezing Cardiac/Chest: regular rate, rhythm, No edema, No gallop, No friction rub Abdomen: normal bowel sounds, non-tender, soft Extremities: No swelling Neuro/Psych: alert, normal mood/affect, oriented x 3 ICD10 Worksheet Patient Problems: Problems Problem Status Onset Dehydration Acute Renal failure Acute Anemia Acute Fever Acute Vomiting Acute
--- NOTE | 2017-02-24 08:51 | PCMIDPN ---
Assessment/Plan: 1. Acute kidney injury: Marked improvement. Nephrology has signed off. 2. AIDS: Increase 3TC to 300 mg daily, continue ABC 600 mg daily and Dolutegravir 50 mg daily. Upon discharge will receive this in 1 pill, Triumeq. All medications need to be given together, with or without food. Will order repeat HIV viral load prior to discharge. 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 Repeat CMV PCR undetectable. 4. 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 Continue Neupogen for now as per Hematology, although thankfully he is no longer neutropenic with an ANC of 1610. 5. Prophylaxis: Continue Mepron for Pneumocystis prophylaxis. Coccidioides testing re- done yesterday as per my note. 6. History of esophageal candidiasis: There is unfortunately a bidirectional drug interaction with fluconazole and rifabutin. For now, will remove this from the equation and use Micafungin while he is in the hospital. Discontinue fluconazole. 7. Fevers: He is no longer neutropenic. Will continue meropenem for 1 more day to complete 5 days of therapy and then discontinue. Blood cultures have been negative. Suspect fevers were related to disseminated mycobacterium avium, and immune reconstitution, plus or minus candidal esophagitis. Over 25 min was spent with this patient. 02/24/17 08:54 Subjective: Much, much better. Creatinine down, ANC is up. No longer having nausea and vomiting. Feels more energetic. (Also on prednisone) Objective: Azithromycin 600 mg daily Rifabutin 300 mg daily Ethambutol 1200 mg daily Fluconazole 100 mg daily Dolutegravir 50 mg daily/ABC 600 mg daily/3TC 150 mg daily Mepron 1500/750 Valcyte 450 daily Meropenem 1 g IV q.12 hours day for Prednisone 60 mg daily day 3 Afebrile Vital Signs Temp Pulse Resp BP Pulse Ox 36.6 C 88 18 118/78 100 02/24/17 08:35 02/24/17 08:35 02/24/17 08:35 02/24/17 08:35 02/24/17 08:35 Microbiology 02/13/17 11:40 Mycobacterial Smear (JOSE ELIAS) - Final Lung Right Lobe - Bronchial Washings Laboratory Results 02/24/17 04:45 02/24/17 04:45 02/23/17 02/24/17 02/25/17 05:59 05:59 05:59 Intake Total 1094 1510 Output Total 900 201 Balance 194 1309 BAL cultures with AFB - Physical Exam General Appearance: no apparent distress, thin EENT: pharynx normal, No scleral icterus, No thrush Respiratory: lungs clear Cardiac/Chest: No tachycardia Extremities: other (PICC line right upper extremity looks fine) Abdomen: non-tender, soft Skin: No rash Neuro/Psych: oriented x 3 ICD10 Worksheet Patient Problems: Problems Problem Status Onset Dehydration Acute Renal failure Acute Anemia Acute Fever Acute Vomiting Acute
--- NOTE | 2017-02-24 09:27 | BVPULMO ---
[facility] Surgical Services- Pulmonology Patient Name: Ramses Humphrey Procedure Date: 02/13/2017 11:16 AM Patient Type: Inpatient Attending MD/ER Physician: Braxton Atkinson MD Procedure: Bronchoscopy Indications: Diagnostic bronchoalveolar lavage Providers: Braxton Atkinson MD Medicines: Lidocaine 1% applied to cords 2 mL, Lidocaine 1% applied to the tracheobronchia l tree mL, Fentanyl 50 mcg IV, Midazolam 1 mg IV Complications: No immediate complications Procedure: After informed consent, a time out was performed. N95 masks were worn, and the procedure was done in a negative pressure room. The patient was given appropria te topical anesthesia and intravenous sedation. The fiberopic bronchoscope was pas sed via a bite block orally into the larynx and subsequently into the lower trachea bronchial tree. Throughout the procedure, the patient's blood pressure, pulse, and oxygen saturations were monitored continuously. The Bronchoscope (Video) was introduced through the mouth and advanced to the tracheobronchial tree of both lungs. The procedure was accomplished without difficulty. The patient tolerated the procedure well. Findings: Specific locations: The following were directly visualized, and are normal: lar ynx, vocal cord motion, trachea, charles, left mainstem bronchus, right mainstem bron chus, bronchus intermedius, left upper lobe including subsegments,left lower lobe including subsegments, right upper lobe including subsegments, right middle lob e including subsegments, right lower lober including subsegments. Bronchoalveolar lavage was performed in the RML lateral segment (B4) of the eitan g. 120 mL of fluid were instilled. 80 mL were returned. The return was clear. Ther e were no mucoid plugs in the return fluid. Washings were obtained. The return was clear. The oropharynx appears normal. The larynx appears normal. The vocal cords appea r normal. The subglottic space is normal. The trachea is of normal caliber. The c emanuel is sharp. The tracheobronchial tree was examined to at least the first subsegme ntal level. Bronchial mucosa and anatomy are normal; there are no endobronchial lesi ons, and no secretions. Post Op Diagnosis: - Bronchoalveolar lavage - Bronchoalveolar lavage was performed. - Washings were obtained. - The examination was normal. - The examination was normal. Estimated Blood Loss: Estimated blood loss: none. Recommendation: - Return patient to hospital [facility]. - Await test results. Braxton Atkinson MD Braxton Atkinson MD 02/24/2017 9:27:17 AM This report has been signed electronicallyBraxton Atkinson MD Number of Addenda: 0 Note Initiated On: 02/13/2017 11:16 AM [email or web address]
[2017-02-24] MEDS: ONDANSETRON 4 MG/2 ML VIAL IVP PRN (10:20)
[2017-02-24] MEDS: MICAFUNGIN IV SCH (10:29)
[2017-02-24] MEDS: SODIUM CHLORIDE IV SCH (10:29)
[2017-02-24] MEDS: oxyCODONE IR 5 MG TAB PO PRN (10:50)
[2017-02-24] MEDS: ETHAMBUTOL HCL 400 MG TAB PO SCH (10:51)
[2017-02-24] MEDS: ABACAVIR SULFATE 300 MG TAB PO SCH (10:51)
[2017-02-24] MEDS: DRONABINOL 2.5 MG CAP PO SCH ×2 (10:51→21:13)
[2017-02-24] MEDS: DIFLUPREDNATE OPTH RTEYE SCH ×2 (10:52→21:13)
[2017-02-24] MEDS: Dolutegravir Sodium [Tivicay] 50 MG PO SCH (10:52)
[2017-02-24] MEDS: RIFABUTIN 150 MG CAP PO SCH (11:30)
[2017-02-24] MEDS: predniSONE 20 MG TAB PO SCH (11:30)
[2017-02-24] MEDS: ONDANSETRON DISINTEGRATING 4 MG TAB PO PRN (12:31)
[2017-02-24] MEDS ORDERED: MEROPENEM 1 GM in STERILE WATER INJ 20 ML IV SCH (13:00)
[2017-02-24] MEDS: ATOVAQUONE 750 MG/5 ML PO SCH ×2 (13:43→18:20)
[2017-02-24] MEDS: AZITHROMYCIN 600 MG TAB PO SCH (13:43)
--- NOTE | 2017-02-24 14:52 | ASMTCMCOM ---
CM Note CM Note Notes: Met with pt to discuss DC plan. Pt states he had been living at a [facility] in [place] but at time of admission was out on furlough and living his son and son's mother. Pt's also has a girlfriend Kayleen. Pt states that his furlough is coming to an end and he is working with his floor space allocator to either extend the furlough or get him probation. Pt prefers to DC to his home b/c he feels that he would be more compliant with his meds and able to deal with his nausea better. However, the [facility] has also been able to manage his meds. Pt states that staying with his mother is not an option because she is caring for an older brother who is ill. CM will continue to follow for any DC needs. Date Signed: 02/24/2017 02:52 PM Electronically Signed By:Ruth Pennington LCSW
[2017-02-24] MEDS: FILGRASTIM-SNDZ 300 MCG/0.5 ML SYR SC SCH (15:40)
--- NOTE | 2017-02-24 18:04 | HOSPPROG ---
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 Kvng Ashley At this point he is still having no specific acute bacterial or other infectious organism identified beyond his previous site identified opportunistic infections There is no focal disease process indicating a new infectious process The high suspicion remains for an immune reconstitution syndrome though as he has had severe neutropenia and fevers will continue to watch him on ongoing antibiotics. Will review again with Infectious Disease tomorrow. If he remains without fevers at that time we may be able to consider discharging him with the without antibiotic. PLANS: -continue treatment for Diane esophagitis but changed to microphone gin due to interaction with his HAART medications -continue current antibiotics for neutropenic fever coverage 1 more day; will review with timing of discharge. Seems he could probably leave tomorrow but the patient is saying she told him it would be several more days -continue HAART -continue current therapy for MAC and CMV -increase activity as able -no medication for DVT prophylaxis at this time with his low platelets -continue follow renal function and cell counts closely on a daily basis SUBJECTIVE: No change in his symptoms at all today Eating well, no respiratory symptoms OBJECTIVE Vitals reviewed: No fever since yesterday morning otherwise stable Exam: alert oriented Looks extremely fatigued and weak skin warm dry color ok resps not labored lungs clear BSs heart regular abd soft nondistended nontender, bowel sounds present limbs warm, no edema iv site ok Laboratory data: All cell counts continue to rise slowly today Creatinine slightly better at 1.4 today Objective: Vital Signs Temp Pulse Resp BP Pulse Ox 36.3 C 74 18 110/71 97 02/24/17 17:17 02/24/17 17:17 02/24/17 17:17 02/24/17 17:17 02/24/17 17:17 Microbiology 02/13/17 11:40 Mycobacterial Smear (JOSE ELIAS) - Final Lung Right Lobe - Bronchial Washings 02/13/17 11:40 Mycobacterial Smear (JOSE ELIAS) - Final Lung Right Lobe - Bronchial Washings Laboratory Results 02/24/17 04:45 02/24/17 04:45 02/23/17 02/24/17 02/25/17 06:59 06:59 06:59 Intake Total 1094 1510 1440 Output Total 900 201 280 Balance 194 1309 1160 PT 13.8 SEC (12.0-15.0) 02/18/17 11:30 INR 1.04 (0.83-1.16) 02/18/17 11:30 ICD10 Worksheet Patient Problems: Problems Problem Status Onset Dehydration Acute Renal failure Acute Anemia Acute Fever Acute Vomiting Acute
[2017-02-24] MEDS: MEROPENEM 1 GM in NS 100 ML IV SCH (23:35)
[2017-02-25] MEDS: oxyCODONE IR 5 MG TAB PO PRN ×3 (01:53→20:50)
[2017-02-25] MEDS: ACETAMINOPHEN 325 MG TAB PO PRN ×2 (05:07→18:08)
[2017-02-25] MEDS: MEROPENEM 1 GM in NS 100 ML IV SCH (05:16)
[2017-02-25] MEDS: HEPARIN 5,000 UNIT/0.5 ML SYR SC SCH ×3 (06:14→20:43)
[2017-02-25] MEDS: ABACAVIR SULFATE 300 MG TAB PO SCH (09:02)
[2017-02-25] MEDS: predniSONE 20 MG TAB PO SCH (09:04)
[2017-02-25] MEDS: DRONABINOL 2.5 MG CAP PO SCH ×2 (09:04→20:50)
[2017-02-25] MEDS: MICAFUNGIN IV SCH (09:05)
[2017-02-25] MEDS: SODIUM CHLORIDE IV SCH (09:05)
[2017-02-25] MEDS: Dolutegravir Sodium [Tivicay] 50 MG PO SCH (09:06)
[2017-02-25] MEDS: DIFLUPREDNATE OPTH RTEYE SCH ×2 (09:06→20:51)
[2017-02-25] MEDS: ONDANSETRON DISINTEGRATING 4 MG TAB PO PRN (09:11)
--- NOTE | 2017-02-25 10:41 | PCMIDPN ---
Assessment/Plan: 1. Acute kidney injury: Marked improvement. Nephrology has signed off. 2. AIDS: Continue 3TC to 300 mg daily, ABC 600 mg daily and Dolutegravir 50 mg daily. Upon discharge will receive this in 1 pill, Triumeq. All medications need to be given together, with or without food. Will order repeat HIV viral load prior to discharge. 3. CMV retinitis of the right eye: Continue Valcyte to 900 mg daily or maintenance dose given improvement in creatinine. Repeat CMV PCR undetectable. 4. 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 Continue Neupogen for now as per Hematology, although thankfully he is no longer neutropenic with an ANC of 1610. Repeat CBC today. 5. Prophylaxis: Continue Mepron for Pneumocystis prophylaxis. Coccidioides testing re- done yesterday as per my note. 6. History of esophageal candidiasis: There is unfortunately a bidirectional drug interaction with fluconazole and rifabutin. Continue Micafungin while in-house. 7. Fevers: He is no longer neutropenic. Will discontinue meropenem after last dose tonight to complete 5 days of therapy. Blood cultures have been negative. Suspect fevers were related to disseminated mycobacterium avium, and immune reconstitution, plus or minus candidal esophagitis. 02/24/17 08:54 02/25/17 10:39 Subjective: Having difficulty sleeping on the prednisone. Otherwise no nausea vomiting. Very hungry. Objective: T-max 37.7degrees Azithromycin 600 mg daily/rifabutin 300 mg daily/ethambutol 1200 mg daily Micafungin 150 mg IV daily day 2 Dolutegravir 50 mg daily/ABC 600 mg daily/3TC 300 mg daily Valcyte 900 mg daily Meropenem 1 g IV q.8 hours day 5. Prednisone 60 mg daily day 4 Vital Signs Temp Pulse Resp BP Pulse Ox 36.6 C 87 17 119/68 97 02/25/17 07:35 02/25/17 07:35 02/25/17 07:35 02/25/17 07:35 02/25/17 07:35 Microbiology 02/13/17 11:40 Mycobacterial Smear (JOSE ELIAS) - Final Lung Right Lobe - Bronchial Washings 02/13/17 11:40 Mycobacterial Smear (JOSE ELIAS) - Final Lung Right Lobe - Bronchial Washings Laboratory Results 02/24/17 04:45 02/25/17 05:00 02/24/17 02/25/17 02/26/17 05:59 05:59 05:59 Intake Total 1510 1840 200 Output Total 201 930 250 Balance 1309 910 -50 No new microbiology - Physical Exam General Appearance: no apparent distress, cachetic EENT: No scleral icterus, No thrush Respiratory: lungs clear Cardiac/Chest: regular rate, rhythm Abdomen: non-tender, soft Skin: No rash ICD10 Worksheet Patient Problems: Problems Problem Status Onset Dehydration Acute Renal failure Acute Anemia Acute Fever Acute Vomiting Acute
[2017-02-25] MEDS: MEROPENEM 1 GM in STERILE WATER INJ 20 ML IV SCH ×2 (13:26→20:47)
[2017-02-25] MEDS: FILGRASTIM-SNDZ 300 MCG/0.5 ML SYR SC SCH (13:26)
[2017-02-25] MEDS: AZITHROMYCIN 600 MG TAB PO SCH (13:35)
[2017-02-25] MEDS: ETHAMBUTOL HCL 400 MG TAB PO SCH (13:35)
[2017-02-25] MEDS: ATOVAQUONE 750 MG/5 ML PO SCH ×2 (13:36→18:09)
[2017-02-25] MEDS: RIFABUTIN 150 MG CAP PO SCH (14:38)
--- NOTE | 2017-02-25 16:05 | ASMTCMCOM ---
CM Note CM Note Notes: Spoke with Dr Hartman today about pt's DC needs. Dr Hartman discussed that pt is at a alf house for violent felony and should complete his sentence there but due to flu and norovirus at the [facility], she is recommending that his furlough be extended for two weeks. While his mother is the best choice she is caring for pt's ill brother. Pt will stay with son and son's mother at DC. CM will cotniue to follow. Date Signed: 02/25/2017 04:04 PM Electronically Signed By:Ruth Pennington LCSW
--- NOTE | 2017-02-25 17:41 | HOSPPROG ---
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 Jackson. today PLANS: - Stop the current antibiotics that were being used for neutropenic fever and observe for any signs of new infection or recurrent fevers; Dr. LITTLE would like to observe him through TuesdayFebruary 28 -continue mycofungin for suspected Diane esophagitis (this is not suspected to be the cause of his presenting fevers) -continue HAART -continue current therapy for MAC and CMV -increase activity as able -no medication for DVT prophylaxis at this time with his low platelets -continue follow renal function and cell counts closely on a daily basis SUBJECTIVE: No change in his symptoms at all today Eating well, no respiratory symptoms OBJECTIVE Vitals reviewed: No fever since yesterday morning otherwise stable Exam: alert oriented Looks extremely fatigued and weak skin warm dry color ok resps not labored lungs clear BSs heart regular abd soft nondistended nontender, bowel sounds present limbs warm, no edema iv site ok Laboratory data: Creatinine slightly better at 1.4 today Objective: Vital Signs Temp Pulse Resp BP Pulse Ox 36.6 C 87 19 108/71 98 02/25/17 16:59 02/25/17 16:59 02/25/17 16:59 02/25/17 16:59 02/25/17 16:59 Laboratory Results 02/24/17 04:45 02/25/17 05:00 02/24/17 02/25/17 02/26/17 06:59 06:59 06:59 Intake Total 1510 2040 1060 Output Total 201 1030 575 Balance 1309 1010 485 PT 13.8 SEC (12.0-15.0) 02/18/17 11:30 INR 1.04 (0.83-1.16) 02/18/17 11:30 ICD10 Worksheet Patient Problems: Problems Problem Status Onset Dehydration Acute Renal failure Acute Anemia Acute Fever Acute Vomiting Acute
[2017-02-25] MEDS ORDERED: MEROPENEM 1 GM in STERILE WATER INJ 20 ML IV SCH (22:00)
[2017-02-26] MEDS: ACETAMINOPHEN 325 MG TAB PO PRN ×4 (00:56→20:50)
[2017-02-26] MEDS: ONDANSETRON DISINTEGRATING 4 MG TAB PO PRN ×3 (00:59→20:50)
[2017-02-26] MEDS: HEPARIN 5,000 UNIT/0.5 ML SYR SC SCH ×3 (04:45→21:05)
[2017-02-26 05:00] LABS: PLATELET COUNT 153 10^3/uL (150-400)
[2017-02-26] MEDS: SODIUM CHLORIDE IV SCH (08:36)
[2017-02-26] MEDS: MICAFUNGIN IV SCH (08:36)
[2017-02-26] MEDS: DRONABINOL 2.5 MG CAP PO SCH (08:43)
[2017-02-26] MEDS: DIFLUPREDNATE OPTH RTEYE SCH ×2 (09:51→21:05)
[2017-02-26] MEDS: predniSONE 20 MG TAB PO SCH (09:52)
[2017-02-26] MEDS: ABACAVIR SULFATE 300 MG TAB PO SCH (09:52)
[2017-02-26] MEDS: Dolutegravir Sodium [Tivicay] 50 MG PO SCH (09:53)
--- NOTE | 2017-02-26 10:55 | HOSPPROG ---
Hospitalist Progress Note Assessment/Plan: 41-year-old with recent diagnosis of AIDS is admitted with abdominal pain and nausea found to be in acute renal failure. He has a number of opportunistic infections as well. # acute kidney injury, multifactorial. Creatinine acutely improved from 6.7- 1.4 currently. Appreciate Nephrology help they have signed off. * Likely multifactorial # AIDS, * Continue 3TC to 300 mg daily, ABC 600 mg daily and Dolutegravir 50 mg daily. Upon discharge will receive this in 1 pill, Triumeq. All medications need to be given together, with or without food. Will order repeat HIV viral load prior to discharge. # CMV retinitis of right eye: * Valvyte, 900mg daily # Disseminated mycobacterium avium with progressive leukopenia/thrombocytopenia : * azithromycin * ethambutol * rifabutin * prednisone 60mg daily with plans on slow taper. * neupogen # AIDS prophylaxis: * Mepron for PCP # Esophageal candidiasis: * micafungin while in house due to drug interaction with fluconazole and rifabutin. # Fevers persist, likely from disseminated mycobacterium infection. * blood cultures negative * s/p 5 days of antibiotics * Subjective: Patient new to me and chart reviewed. Feels about the same. Complains of some mild stomach upset but did eat a relatively good breakfast. Objective: Vital Signs Temp Pulse Resp BP Pulse Ox 36.7 C 118 H 16 135/87 H 95 02/26/17 09:45 02/26/17 08:00 02/26/17 08:00 02/26/17 08:00 02/26/17 08:00 Microbiology 02/20/17 18:05 Blood Culture - Final Blood 02/20/17 17:40 Blood Culture - Final Blood Laboratory Results 02/26/17 04:50 02/26/17 04:50 02/25/17 02/26/17 02/27/17 05:59 05:59 05:59 Intake Total 1840 2200 105 Output Total 930 975 475 Balance 910 1225 -370 PT 13.8 SEC (12.0-15.0) 02/18/17 11:30 INR 1.04 (0.83-1.16) 02/18/17 11:30 - Physical Exam Constitutional: not in pain, chronically ill appearing, cachectic Eyes: PERRL, anicteric sclera, EOMI Ears, Nose, Mouth, Throat: moist mucous membranes Cardiovascular: regular rate and rhythym, no murmur, rub, or gallop Respiratory: no respiratory distress, no rales or rhonchi, clear to auscultation Gastrointestinal: normoactive bowel sounds, tenderness Genitourinary: no bladder fullness Skin: warm Musculoskeletal: No muscular tenderness Neurologic: AAOx3, No facial droop Psychiatric: interacting appropriately, not anxious, not encephalopathic Lymph, Heme, Immunologic: no cervical LAD ICD10 Worksheet Patient Problems: Problems Problem Status Onset Dehydration Acute Renal failure Acute Anemia Acute Fever Acute Vomiting Acute
[2017-02-26] MEDS: ATOVAQUONE 750 MG/5 ML PO SCH ×2 (12:12→18:00)
[2017-02-26] MEDS: AZITHROMYCIN 600 MG TAB PO SCH (12:12)
[2017-02-26] MEDS: ETHAMBUTOL HCL 400 MG TAB PO SCH (12:12)
[2017-02-26] MEDS: RIFABUTIN 150 MG CAP PO SCH (12:22)
--- NOTE | 2017-02-26 13:04 | PCMIDPN ---
Assessment/Plan: 1. Acute kidney injury: Marked improvement. Creatinine stable at 1.4. 2. AIDS: Continue 3TC to 300 mg daily, ABC 600 mg daily and Dolutegravir 50 mg daily. Upon discharge will receive this in 1 pill, Triumeq. All medications need to be given together, with or without food. Will order repeat HIV viral load prior to discharge. 3. CMV retinitis of the right eye: Continue Valcyte to 900 mg daily for maintenance therapy. Repeat CMV PCR undetectable. 4. 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 5. Prophylaxis: Continue Mepron for Pneumocystis prophylaxis. Coccidioides testing re- done yesterday as per my note. 6. History of esophageal candidiasis: There is unfortunately a bidirectional drug interaction with fluconazole and rifabutin. Continue Micafungin while in-house. 7. Fevers: ? Secondary to immune reconstitution. He is no longer neutropenic, and meropenem was stopped yesterday. Continue to follow clinically. 02/26/17 13:07 Subjective: Had a fever to 39.5 earlier today, but feels better now. Had some shaking chills. Excellent appetite, no diarrhea or abdominal pain. No other new complaints. Objective: Ethambutol 1200 mg p. o. daily Rifabutin 300 mg p. o. daily Azithromycin 600 mg p.o. daily Dolutegravir 50 mg p. o. daily/3TC 300 mg p.o. daily/ABC 600 mg p.o. daily Mepron 1500/750 Prednisone 60 mg daily day 5 T-max 39.5degrees Vital Signs Temp Pulse Resp BP Pulse Ox 36.7 C 118 H 16 135/87 H 95 02/26/17 11:47 02/26/17 08:00 02/26/17 08:00 02/26/17 08:00 02/26/17 08:00 Microbiology 02/20/17 18:05 Blood Culture - Final Blood 02/20/17 17:40 Blood Culture - Final Blood Laboratory Results 02/26/17 04:50 02/26/17 04:50 02/25/17 02/26/17 02/27/17 05:59 05:59 05:59 Intake Total 1840 2200 845 Output Total 930 975 695 Balance 910 1225 150 No new microbiology. - Physical Exam General Appearance: no apparent distress, cachetic EENT: No scleral icterus, No thrush Respiratory: lungs clear Cardiac/Chest: regular rate, rhythm, No systolic murmur Extremities: other (PICC line right upper extremity looks fine) Abdomen: non-tender, soft Skin: No rash ICD10 Worksheet Patient Problems: Problems Problem Status Onset Dehydration Acute Renal failure Acute Anemia Acute Fever Acute Vomiting Acute
[2017-02-26] MEDS: oxyCODONE IR 5 MG TAB PO PRN (22:43)
[2017-02-27] MEDS: ONDANSETRON DISINTEGRATING 4 MG TAB PO PRN ×2 (03:06→09:33)
[2017-02-27] MEDS: HEPARIN 5,000 UNIT/0.5 ML SYR SC SCH ×3 (03:43→19:48)
[2017-02-27] MEDS: ACETAMINOPHEN 325 MG TAB PO PRN ×3 (04:43→19:48)
[2017-02-27] MEDS: ABACAVIR SULFATE 300 MG TAB PO SCH (09:21)
[2017-02-27] MEDS: predniSONE 20 MG TAB PO SCH (09:21)
[2017-02-27] MEDS: Dolutegravir Sodium [Tivicay] 50 MG PO SCH (09:22)
[2017-02-27] MEDS: DIFLUPREDNATE OPTH RTEYE SCH ×2 (09:24→21:48)
[2017-02-27] MEDS: MICAFUNGIN IV SCH (09:25)
[2017-02-27] MEDS: SODIUM CHLORIDE IV SCH (09:25)
[2017-02-27] MEDS: ETHAMBUTOL HCL 400 MG TAB PO SCH (12:19)
[2017-02-27] MEDS: ATOVAQUONE 750 MG/5 ML PO SCH ×2 (12:19→18:17)
[2017-02-27] MEDS: AZITHROMYCIN 600 MG TAB PO SCH (12:19)
[2017-02-27] MEDS: RIFABUTIN 150 MG CAP PO SCH (12:20)
--- NOTE | 2017-02-27 13:47 | HOSPPROG ---
Hospitalist Progress Note Assessment/Plan: 41-year-old with recent diagnosis of AIDS is admitted with abdominal pain and nausea found to be in acute renal failure. He has a number of opportunistic infections as well. Still having fevers and chills. # acute kidney injury, multifactorial. Creatinine acutely improved from 6.7 to 1.2 currently. Appreciate Nephrology help they have signed off. * Likely multifactorial # AIDS, * Continue 3TC to 300 mg daily, ABC 600 mg daily and Dolutegravir 50 mg daily. Upon discharge will receive this in 1 pill, Triumeq. All medications need to be given together, with or without food. Will order repeat HIV viral load prior to discharge. # CMV retinitis of right eye: * Valvyte, 900mg daily # Disseminated mycobacterium avium with progressive leukopenia/thrombocytopenia : * azithromycin * ethambutol * rifabutin * prednisone 60mg daily with plans on slow taper. * neupogen # AIDS prophylaxis: * Mepron for PCP # Esophageal candidiasis: * micafungin while in house due to drug interaction with fluconazole and rifabutin. # Fevers persist, likely from disseminated mycobacterium infection. * blood cultures negative * s/p 5 days of antibiotics * dispo: pt will continue current therapy. Defer to ID re: disposition Subjective: complaining of ongoing fevers. eating well Objective: Vital Signs Temp Pulse Resp BP Pulse Ox 36.8 C 92 18 116/77 97 02/27/17 12:21 02/27/17 07:20 02/27/17 07:20 02/27/17 07:20 02/27/17 07:20 Laboratory Results 02/26/17 04:50 02/27/17 04:45 02/26/17 02/27/17 02/28/17 05:59 05:59 05:59 Intake Total 2200 2263 850 Output Total 975 1095 Balance 1225 1168 850 PT 13.8 SEC (12.0-15.0) 02/18/17 11:30 INR 1.04 (0.83-1.16) 02/18/17 11:30 - Physical Exam Constitutional: chronically ill appearing Ears, Nose, Mouth, Throat: moist mucous membranes Cardiovascular: regular rate and rhythym Respiratory: no respiratory distress, clear to auscultation Gastrointestinal: normoactive bowel sounds, No distension Genitourinary: no bladder fullness Skin: warm Neurologic: AAOx3 Psychiatric: interacting appropriately, not anxious ICD10 Worksheet Patient Problems: Problems Problem Status Onset Anemia Acute Vomiting Acute Fever Acute Renal failure Acute Dehydration Acute
--- NOTE | 2017-02-27 16:54 | PCMIDPN ---
Assessment/Plan: 1. Acute kidney injury: Marked improvement. Creatinine stable at 1.2. 2. AIDS: Continue 3TC 300 mg daily, ABC 600 mg daily and Dolutegravir 50 mg daily. Upon discharge will receive this in 1 pill, Triumeq. All medications need to be given together, with or without food. Will order repeat HIV viral load today, which will be done this coming Tuesday. 3. CMV retinitis of the right eye: Continue Valcyte to 900 mg daily for maintenance therapy. Repeat CMV PCR undetectable. 4. 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 5. Prophylaxis: Continue Mepron for Pneumocystis prophylaxis. Coccidioides testing re- done and pending. 6. History of esophageal candidiasis: There is unfortunately a bidirectional drug interaction with fluconazole and rifabutin. Continue Micafungin while in-house. 7. Fevers: ? Secondary to immune reconstitution. He is no longer neutropenic. Will increase prednisone to 80 mg as outlined above. 8. Disposition: The patient adamantly refuses a assisted facility, such as [facility]. He would like to go home. Suspect he can go home on Tuesday. We will arrange for all of his medicines to be called into a pharmacy tomorrow so he is prepared. 02/27/17 16:55 Over 25 min was spent with this patient today Subjective: Complaining of drenching sweats. Had a temperature of 39degrees this morning. No cough, no abdominal pain, no diarrhea or joint pain, no visual disturbance or headache. No rash. Objective: Dolutegravir 50 mg daily/ABC 600 mg daily/3TC 300 mg daily Prednisone 60 mg daily Mepron 1500/750 Ethambutol 1200 mg p.o. daily Rifabutin 300 mg daily Azithromycin 600 mg p.o. daily T-max 39degrees this morning Vital Signs Temp Pulse Resp BP Pulse Ox 36.4 C 67 18 123/75 H 99 02/27/17 16:42 02/27/17 16:42 02/27/17 16:42 02/27/17 16:42 02/27/17 16:42 Laboratory Results 02/26/17 04:50 02/27/17 04:45 02/26/17 02/27/17 02/28/17 05:59 05:59 05:59 Intake Total 2200 2263 850 Output Total 975 1095 Balance 1225 1168 850 - Physical Exam General Appearance: no apparent distress, cachetic EENT: pharynx normal, No thrush Respiratory: lungs clear Cardiac/Chest: regular rate, rhythm, No tachycardia Extremities: other (PICC line right upper extremity fine) Abdomen: non-tender, soft Skin: No rash ICD10 Worksheet Patient Problems: Problems Problem Status Onset Dehydration Acute Renal failure Acute Anemia Acute Fever Acute Vomiting Acute
[2017-02-28] MEDS: ACETAMINOPHEN 325 MG TAB PO PRN ×3 (01:52→21:42)
[2017-02-28] MEDS: oxyCODONE IR 5 MG TAB PO PRN (01:53)
[2017-02-28] MEDS: ONDANSETRON 4 MG/2 ML VIAL IVP PRN (01:53)
[2017-02-28] MEDS: HEPARIN 5,000 UNIT/0.5 ML SYR SC SCH ×4 (02:07→23:15)
[2017-02-28 04:20] LABS: PLATELET COUNT 208 10^3/uL (150-400)
[2017-02-28] MEDS: ONDANSETRON DISINTEGRATING 4 MG TAB PO PRN ×3 (08:18→21:41)
[2017-02-28] MEDS: ABACAVIR SULFATE 300 MG TAB PO SCH (08:21)
[2017-02-28] MEDS: Dolutegravir Sodium [Tivicay] 50 MG PO SCH (08:22)
[2017-02-28] MEDS: predniSONE 20 MG TAB PO SCH (08:23)
[2017-02-28] MEDS: PROMETHAZINE HCL 25 MG/ML INJ IVP PRN (11:08)
[2017-02-28] MEDS: SODIUM CHLORIDE IV SCH (11:10)
[2017-02-28] MEDS: MICAFUNGIN IV SCH (11:10)
[2017-02-28] MEDS: DIFLUPREDNATE OPTH RTEYE SCH ×2 (11:16→21:45)
--- NOTE | 2017-02-28 11:59 | PCMIDPN ---
Assessment/Plan: 1. Acute kidney injury: Marked improvement. Creatinine stable. 2. AIDS: Continue 3TC 300 mg daily, ABC 600 mg daily and Dolutegravir 50 mg daily. Upon discharge will receive this in 1 pill, Triumeq. All medications need to be given together, with or without food. Repeat viral load pending. 3. CMV retinitis of the right eye: Continue Valcyte to 900 mg daily for maintenance therapy. Repeat CMV PCR undetectable. 4. 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 Increased dose to 80 mg daily given rifabutin metabolizes up to 1/3 of the dose and suspect fevers are from immune reconstitution. 5. Prophylaxis: Continue Mepron for Pneumocystis prophylaxis. Coccidioides testing re- done and pending. 6. History of esophageal candidiasis: There is unfortunately a bidirectional drug interaction with fluconazole and rifabutin. Continue Micafungin while in-house. 7. Fevers: ? Secondary to immune reconstitution. He is no longer neutropenic. Increased prednisone to 80 mg as outlined above. 8. Disposition: Hopefully he will go home tomorrow. I called all of his medications, including Triumeq (HIV medication), ethambutol, rifabutin, azithromycin, atovaquone, Valcyte, prednisone, Ativan, clotrimazole troches to the [facility] on [facility] in [place] as per his request. I will see him tomorrow, and sort out when I can see him in clinic and give him an appointment before he leaves. 02/28/17 11:58 Subjective: Feeling better. Anxious to go home. Objective: Medicines have not changed with the exception of prednisone 80 mg daily T-max 38.1degrees Vital Signs Temp Pulse Resp BP Pulse Ox 38.0 C 114 H 18 129/88 H 99 02/28/17 09:18 02/28/17 09:18 02/28/17 09:18 02/28/17 09:18 02/28/17 09:18 Laboratory Results 02/28/17 03:33 02/28/17 03:33 02/27/17 02/28/17 03/01/17 05:59 05:59 05:59 Intake Total 2263 1150 Output Total 1095 200 Balance 1168 950 - Physical Exam General Appearance: alert, no apparent distress EENT: No scleral icterus, No thrush Respiratory: lungs clear Skin: No rash ICD10 Worksheet Patient Problems: Problems Problem Status Onset Dehydration Acute Renal failure Acute Anemia Acute Fever Acute Vomiting Acute
--- NOTE | 2017-02-28 12:31 | SOAPPROG ---
SOAP Progress Note Assessment/Plan: Assessment: Counts improving. Plan: I'll sign off. Please call with questions. Objective: Vital Signs Temp Pulse Resp BP Pulse Ox 37.1 C 95 17 119/57 L 96 02/28/17 12:17 02/28/17 12:17 02/28/17 12:17 02/28/17 12:17 02/28/17 12:17 Laboratory Results 02/28/17 03:33 02/28/17 03:33 02/26/17 02/27/17 02/28/17 23:59 23:59 23:59 Intake Total 2483 1450 200 Output Total 995 400 200 Balance 1488 1050 0 PT 13.8 SEC (12.0-15.0) 02/18/17 11:30 INR 1.04 (0.83-1.16) 02/18/17 11:30 ICD10 Worksheet Patient Problems: Problems Problem Status Onset Dehydration Acute Renal failure Acute Anemia Acute Fever Acute Vomiting Acute
[2017-02-28] MEDS: ETHAMBUTOL HCL 400 MG TAB PO SCH (13:27)
[2017-02-28] MEDS: AZITHROMYCIN 600 MG TAB PO SCH (13:27)
[2017-02-28] MEDS: ATOVAQUONE 750 MG/5 ML PO SCH ×2 (13:28→18:44)
[2017-02-28] MEDS: RIFABUTIN 150 MG CAP PO SCH (13:32)
--- NOTE | 2017-02-28 13:33 | HOSPPROG ---
Hospitalist Progress Note Assessment/Plan: 41-year-old with recent diagnosis of AIDS is admitted with abdominal pain and nausea found to be in acute renal failure. He has a number of opportunistic infections as well. Still having fevers and chills. Temp slightly lower than yesterday # acute kidney injury, multifactorial. Creatinine acutely improved from 6.7 to 1.2 currently. Appreciate Nephrology help they have signed off. * Likely multifactorial # AIDS, * Continue 3TC to 300 mg daily, ABC 600 mg daily and Dolutegravir 50 mg daily. Upon discharge will receive this in 1 pill, Triumeq. All medications need to be given together, with or without food. Will order repeat HIV viral load prior to discharge. # CMV retinitis of right eye: * Valvyte, 900mg daily # Disseminated mycobacterium avium with progressive leukopenia/thrombocytopenia : * azithromycin * ethambutol * rifabutin * prednisone 60mg daily with plans on slow taper. * neupogen # AIDS prophylaxis: * Mepron for PCP # Esophageal candidiasis: * micafungin while in house due to drug interaction with fluconazole and rifabutin. # Fevers persist, likely from disseminated mycobacterium infection. * blood cultures negative * s/p 5 days of antibiotics * dispo: pt will continue current therapy. Defer to ID re: disposition likely tomorrow if counts stable. Subjective: some abdominal discomfort but eating and drinking well Objective: Vital Signs Temp Pulse Resp BP Pulse Ox 37.1 C 95 17 119/57 L 96 02/28/17 12:17 02/28/17 12:17 02/28/17 12:17 02/28/17 12:17 02/28/17 12:17 Laboratory Results 02/28/17 03:33 02/28/17 03:33 02/27/17 02/28/17 03/01/17 05:59 05:59 05:59 Intake Total 2263 1150 Output Total 1095 200 Balance 1168 950 PT 13.8 SEC (12.0-15.0) 02/18/17 11:30 INR 1.04 (0.83-1.16) 02/18/17 11:30 - Physical Exam Constitutional: chronically ill appearing Respiratory: no respiratory distress Neurologic: AAOx3 Psychiatric: interacting appropriately ICD10 Worksheet Patient Problems: Problems Problem Status Onset Anemia Acute Vomiting Acute Fever Acute Renal failure Acute Dehydration Acute
--- NOTE | 2017-02-28 15:23 | ASMTCMCOM ---
CM Note CM Note Notes: Spoke with pt who confirmed he will be staying with his son and his son's mother when he discharges - most likely tomorrow. The ID MD called in his prescriptions to [facility] in [place] for tomorrow. No other CM needs anticipated but will continue to follow until d/c. Date Signed: 02/28/2017 03:22 PM Electronically Signed By:BRANDON Peres
[2017-02-28] MEDS: LORazepam 0.5 MG TAB PO PRN (21:42)
[2017-02-28] MEDS: BENZONATATE 100 MG CAP PO PRN (21:42)
[2017-03-01 08:45] LABS: PLATELET COUNT 218 10^3/uL (150-400)
[2017-03-01] MEDS: DIFLUPREDNATE OPTH RTEYE SCH (09:28)
[2017-03-01] MEDS: predniSONE 20 MG TAB PO SCH (09:29)
[2017-03-01] MEDS: Dolutegravir Sodium [Tivicay] 50 MG PO SCH (09:29)
[2017-03-01] MEDS: ABACAVIR SULFATE 300 MG TAB PO SCH (09:29)
--- NOTE | 2017-03-01 09:30 | GDS ---
[f rep st] DISCHARGE SUMMARY DIAGNOSES: 1. Acute kidney injury, improved. 2. AIDS. 3. CMV retinitis of the right eye. 4. Disseminated BERRY with progressive leukopenia and thrombocytopenia. 5. History of esophageal candidiasis. 6. Fevers, improved today. CONSULTATIONS: Include Infectious Disease, Hematology/Oncology, Nephrology and Critical Care. PROCEDURES DONE: 1. Abdominal CT scan and large infracarinal mesenteric and retroperitoneal adenopathy. 2. Chest CT new right middle lobe pneumonia. Trace pleural effusions. Increased mediastinal adenop athy. 3. Bronchoscopy on 02/13/2017. 4. PICC line insertion. 5. Repeat CT scans of the chest, abdomen and pelvis on 02/21/2017. New trace nonspecific free fluid in the low pelvis and minimal nonspecific stranding along pericolic gutters. No abscess. Retroperi toneal and mesenteric adenopathy is unchanged, and improving right middle lobe airspace consolidation . HOSPITAL COURSE: Mr. Humphrey is a 41-year-old with the above complicated past medical history. He was admitted with abdominal pain and nausea. At the time of admission, he was in acute renal failur e with an elevated creatinine. He had the above procedures, which revealed a right upper lobe consol idation. Nephrology and Pulmonology were both consulted on his initial admission, as well as Infecti ous Disease, who have been following throughout his hospitalization. On admission, his medications w ere reviewed and adjusted for his renal failure. He was placed under supportive care and treated for his opportunistic infections as noted above. Over the course of his hospitalization, his renal func tion gradually improved and at the time of discharge was 1.3. Infectious Disease followed him closel y. He had a bronchoscopy which was done, which was primarily positive for Diane as well as mycobac teria. He was placed on appropriate treatment for this; however, he did continue to have fevers and was pancytopenic due to his HIV status. He was placed on broad-spectrum antibiotics until his counts improved with the help of Neupogen prescribed by Oncology. He continues to be quite ill with a numb er of opportunistic infections at the time of discharge. However, he is overall stable, tolerating o rals and on a stable medicine regimen prescribed by Infectious disease. There is nothing more to do at this time regarding his hospitalization. He will be discharged home. His medications have been r econciled by Infectious Disease and he has a followup scheduled. CONDITION ON DISCHARGE: Fair. He has been afebrile for the last 24 hours. Heart rate 97, blood pre ssure 127/87. He is 98% on room air. He is quite thin. Heart is regular. He is not in any respira tory distress. He is eating and drinking. DISCHARGE MEDICATIONS: Please see discharge medicine reconciliation. FOLLOWUP INSTRUCTIONS: He has a followup scheduled with Dr. Hartman next Tuesday at 9:30. Total time spent with patient on day of discharge and coordination of care is 35 minutes. /[id number]/MODL
[2017-03-01] MEDS: SODIUM CHLORIDE IV SCH (09:31)
[2017-03-01] MEDS: MICAFUNGIN IV SCH (09:31)
[2017-03-01] MEDS: ACETAMINOPHEN 325 MG TAB PO PRN (09:36)
[2017-03-01] MEDS: ONDANSETRON DISINTEGRATING 4 MG TAB PO PRN (09:36)
--- NOTE | 2017-03-01 10:59 | PCMIDPN ---
Assessment/Plan: 1. Acute kidney injury: Marked improvement. 2. AIDS: The patient will get his antiretrovirals here before he goes home, then will be transitioned to Triumeq, 1 pill daily. 3. CMV retinitis of the right eye: Continue Valcyte to 900 mg daily for maintenance therapy. Repeat CMV PCR undetectable. 4. 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 Increased dose to 80 mg daily given rifabutin metabolizes up to 1/3 of the dose and suspect fevers are from immune reconstitution. He will get a slow taper. 5. Prophylaxis: Continue Mepron for Pneumocystis prophylaxis. Coccidioides testing re- done and pending. 6. History of esophageal candidiasis: Stop Micafungin. No fluconazole. Prescription for clotrimazole troches called into the pharmacy as per below. I think he has had enough treatment for this. (He was on high-dose fluconazole for 14 days prior to admission) 7. Fevers: ? Secondary to immune reconstitution. He is no longer neutropenic. Increased prednisone to 80 mg as outlined above. 8. Disposition: home today. I called all of his medications yesterday, including Triumeq (HIV medication), ethambutol, rifabutin, azithromycin, atovaquone, Valcyte, prednisone, Ativan, clotrimazole troches to the [facility] on [facility] in [place] as per his request. He will see me in follow-up TuesdayMarch 08 at 9:00 a.m.. Over 25 min was spent with this patient today. Case discussed with Dr. Mayda Benavides , whose care is sincerely appreciated. Subjective: Ready to go home today! Feels tired, but no other real complaints. Fever curve going down. Objective: Dolutegravir 50/ABC 600/3TC 300 ethambutol 1200 mg daily rifabutin 300 mg azithromycin 600 mg daily atovaquone 1500/750 prednisone 80 Ativan p.r.n. T-max 37.6degrees Vital Signs Temp Pulse Resp BP Pulse Ox 37.6 C 97 15 127/87 H 98 03/01/17 07:49 03/01/17 07:49 03/01/17 07:49 03/01/17 07:49 03/01/17 07:49 Microbiology 02/13/17 11:40 Mycobacterial Smear (JOSE ELIAS) - Final Lung Right Lobe - Bronchial Washings Laboratory Results 03/01/17 08:40 02/28/17 03:33 02/28/17 03/01/17 03/02/17 05:59 05:59 05:59 Intake Total 1150 1850 Output Total 200 400 Balance 950 1450 AFB blood cultures remain sterile at day 8 HIV RNA PCR pending - Physical Exam General Appearance: no apparent distress, cachetic Cardiac/Chest: regular rate, rhythm Skin: No rash ICD10 Worksheet Patient Problems: Problems Problem Status Onset Dehydration Acute Renal failure Acute Anemia Acute Fever Acute Vomiting Acute
[2017-03-01 12:12] VITALS: BP 115/78; PULSE 109; RESP 16; TEMP 98.4; O2SAT 97
--- NOTE | 2017-03-01 14:38 | ASDISCHSUM ---
Discharge Information Plan Status:Home with No Needs Medically Cleared to Leave:02/28/2017 Discharge Date:03/01/2017 12:55 PM CM D/C Disposition:Home, Routine, Self-Care ADT D/C Disposition:Home, Routine, Self-Care Projected Discharge Date:03/01/2017 12:55 PM Transportation at D/C:Medicaid Transportation Discharge Delay Reason: Follow-Up Date:03/01/2017 12:55 PM Discharge Slot: Final Diagnosis: Placement Information Patient Contact Information Contact Name:LEONELA Relationship:Friend Address: Work Phone: City: [facility] Phone: State/[place] Code: Email: Financial Information Financial Class: Primary Plan Desc:[employer] [place] Primary Plan Number:[id number] Secondary Plan Desc: Secondary Plan Number: Assessment Information [facility] CM Progress Note CM Note CM Note Notes: 02/11/2017 Case Management Note Reviewed chart. Infectious disease prescribed medications are oral at this time. There are no PT or OT evals ordered at this time. Case Management d/c poc: anticipating independent d/c when medically stable with follow up as directed. Case Management to follow and available if needs change. Date Signed: 02/11/2017 11:15 AM Electronically Signed By:Alma Sifuentes RN [facility] CM Progress Note CM Note CM Note Notes: Renal consult requested today. Patient experiencing nausea and has been given phenergan for relief. CT scan showing nodules and there are multiple serologies pending. PT has discharged patient with no F/U needed. D/C plan remains independent at this time. CM available if needs arise. Date Signed: 02/14/2017 04:06 PM Electronically Signed By:Shauna Perez LCSW [facility] CM Progress Note CM Note CM Note Notes: I spoke with Dr Hartman who follows patient closely re: plans going forward. Per Dr Hartman, patient will likely remain hospitalized for another week while his kidney function recovers. He is also being treated for CMV retinitis and there is a strong suspicion for MAC infection. Patient is unemployed and living with a young girlfriend. He is followed by [facility] as an outpatient. Discharge plan continues to be home independent, but we will monitor to see if any needs arise. Date Signed: 02/16/2017 10:31 AM Electronically Signed By:Kathy Bledsoe RN [facility] CM Progress Note CM Note CM Note Notes: Per Dr Hartman's note today, she is recommedning that pt live with his mother at [place] or go back [facility] a [facility] where they were helping him with his medication. It is unclear when pt will be ready for DC. Date Signed: 02/18/2017 04:04 PM Electronically Signed By:Ruth Pennington LCSW [facility] CM Progress Note CM Note CM Note Notes: Patient now with new fever. Discharge date remains unclear. Also reviewed therapy recommendations, patient has been cleared for home. Case Management will continue to follow for discharge needs, tbd at this time. Date Signed: 02/21/2017 02:43 PM Electronically Signed By:Estefanía Nichole RN [facility] CM Progress Note CM Note CM Note Notes: Met with pt to discuss DC plan. Pt states he had been living at a [facility] in [place] but at time of admission was out on furlough and living his son and son's mother. Pt's also has a girlfriend Kayleen. Pt states that his furlough is coming to an end and he is working with his leaf size picker to either extend the furlough or get him probation. Pt prefers to DC to his home b/c he feels that he would be more compliant with his meds and able to deal with his nausea better. However, the [facility] has also been able to manage his meds. Pt states that staying with his mother is not an option because she is caring for an older brother who is ill. CM will continue to follow for any DC needs. Date Signed: 02/24/2017 02:52 PM Electronically Signed By:Ruth Pennington LCSW [facility] CM Progress Note CM Note CM Note Notes: Spoke with Dr Hartman today about pt's DC needs. Dr Hartman discussed that pt is at a [facility] and should complete his sentence there but due to flu and norovirus at the [facility], she is recommending that his furlough be extended for two weeks. While his mother is the best choice she is caring for pt's ill brother. Pt will stay with son and son's mother at [place]. CM will cotniue to follow. Date Signed: 02/25/2017 04:04 PM Electronically Signed By:Ruth Pennington LCSW [facility] CM Progress Note CM Note CM Note Notes: Spoke with pt who confirmed he will be staying with his son and his son's mother when he discharges - most likely tomorrow. The ID MD called in his prescriptions to [facility] in [place] for tomorrow. No other CM needs anticipated but will continue to follow until d/c. Date Signed: 02/28/2017 03:22 PM Electronically Signed By:BRANDON Peres Intervention Information
== END 2017-03-01 12:55 | disposition home or self-care (01) | DRG 975 ==
LOC: F2W 21:13 → F1N 02-12 14:11
PROVIDERS: ADMIT Internal Medicine; ATTEND Internal Medicine
PROC: 30233N1 Transfusion of Nonautologous Red Blood Cells into Peripheral Vein, Percutaneous Approach (ICD-10-PCS; 2017-02-11)
PROC: 0B9D8ZX Drainage of Right Middle Lung Lobe, Via Natural or Artificial Opening Endoscopic, Diagnostic (ICD-10-PCS; principal; 2017-02-13 11:00)
PROC: 02HV33Z Insertion of Infusion Device into Superior Vena Cava, Percutaneous Approach (ICD-10-PCS; 2017-02-21)
DX: B20 Human immunodeficiency virus [HIV] disease (principal); N17.9 Acute kidney failure, unspecified; B25.8 Other cytomegaloviral diseases; H30.91 Unspecified chorioretinal inflammation, right eye; A31.2 Disseminated mycobacterium avium-intracellulare complex (DMAC); D63.8 Anemia in other chronic diseases classified elsewhere; B37.9 Candidiasis, unspecified; Z87.891 Personal history of nicotine dependence
CPT/HCPCS: 83010-90; 84166-90; 86022-90; 86612-90; 86635-90; 87385-90; 87449-90; 87496-90; 87497-90; 87536-90; 96374; 97116-GP; 97161-GP; C1751; G8978-GP-CJ; G8979-GP-CI; J2185; J2248; J2250; J2405; J2550; J3010; J7512; P9016; Q5101-ZA; Q9967

== ENCOUNTER 2018-07-30 18:01 | Emergency (ER) | payer OTHER, MEDICAID | END 2018-07-30 22:21 | disposition home or self-care (01) ==